=== PATIENT | female | born 2000 | race Hispanic/Latino ===

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

== ENCOUNTER → 2022-01-09 13:31 | Outpatient (CLI) | payer OTHER, MEDICAID, SELFPAY ==
[2021-09-12 14:55] VITALS: BMI 31.3
== END ==
PROVIDERS: Family Provider Pediatrics; PCP Registered Nurse Diabetes Educator; Visit Provider Physician Assistant
DX: N39.0 Urinary tract infection, site not specified (principal)
CPT/HCPCS: 81002; 81025; 87086

== ENCOUNTER 2022-01-24 13:12 | Emergency (ER) | payer OTHER, MEDICAID, SELFPAY ==
[2021-09-12 14:55] VITALS: BMI 31.3
[2022-01-24 13:22] VITALS: BP 179/98; PULSE 122; RESP 22; TEMP 36.9; O2SAT 100
[2022-01-24 13:46] LABS: Ictotest Urine Negative (Negative)
[2022-01-24 13:53] LABS: Bacteria Urine Many (>30); RBC Urine 10-30/HPF (0-5/HPF); Squamous Epithelial Cell Urine 5-10 /HPF (0-5/HPF); WBC Urine 10-30/HPF (0-5/HPF)
--- NOTE | 2022-01-24 14:21 | ED.FEMALEGU ---
HPI - Female Genitourinary General Chief complaint: Urogenital-Female Stated complaint: Itching/burning in genitals Time Seen by Provider: 01/24/22 14:21 Source: patient Mode of arrival: Ambulatory History of Present Illness HPI Narrative: Patient is a 21-year-old female who has history PTSD and depression and frequent UTIs presenting today with vaginal itching and painful urination. He continued to have a charge itching and some dysuria. History of mild back pain. She denies any fever or chills. No nausea or vomiting. She denies any abdominal pain. She reports having unprotected sex with many male partners. She denies prior history of STD. She does have Implanon in her arm. Related Data Previous Rx's Medication Instructions Recorded fluconazole 200 mg tablet 200 mg PO DAILY #1 tab 01/24/22 (Diflucan) Allergies Allergy/AdvReac Type Severity Reaction Status Date / Time sulfamethoxazole Allergy Mild MAKES Verified 01/24/22 16:04 [From ] THROAT BURN trimethoprim [From ] Allergy Mild MAKES Verified 01/24/22 16:04 THROAT BURN amoxicillin Allergy Unknown ITCHING Verified 01/24/22 16:04 Review of Systems Review of Systems Narrative: GENERAL: Denies chills, fatigue, malaise, fever, sweats, travel HEENT: Denies sinus pain, ear pain, sore throat, difficulty swallowing, neck pain RESPIRATORY: Denies dyspnea, cough, wheezing, hemoptysis, sputum. CARDIOVASCULAR: Denies chest pain, palpitations, orthopnea, edema GASTROINTESTINAL: Denies nausea, vomiting, abdominal pain, diarrhea, constipation, melena. : See HPI LICENSED PRACTICAL NURSE CLINIC NURSE: See HPI MUSCULOSKELETAL: Denies weakness, joint pain, or bony pain SKIN: No rash, no erythema, no pruritus NEUROLOGIC: Denies weakness, dizziness, headache, numbness, change in speech, confusion PSYCHIATRIC: No concerning psychosocial issues. 12 point review of systems is negative except for those stated above and HPI Patient History Medical History Chronic ankle pain, bilateral Chronic headache Dehydration Depression GERD (gastroesophageal reflux disease) History of epistaxis Low back pain Lumbosacral pain, chronic Obesity Otitis media Panic anxiety syndrome Posttraumatic stress disorder UTI (urinary tract infection) alcohol intake frequency: holidays/special occasions only Substance Use Type: does not use Exam Initial Vital Signs Initial Vital Signs: Vital Signs Temperature 98.4 F 01/24/22 13:22 Pulse Rate 122 H 01/24/22 13:22 Respiratory Rate 22 01/24/22 13:22 Blood Pressure 179/98 H 01/24/22 13:22 Pulse Oximetry 100 01/24/22 13:22 GENERAL: Alert well-appearing 21-year-old female HEENT: Head atraumatic,EOMI, pupils reactive, face symmetric, [moist] mucous membranes CARDIOVASCULAR: Regular rate and rhythm without murmurs, rubs or gallops. RESPIRATORY: Breath sounds equal bilaterally, no wheezes rales or rhonchi. ABDOMEN: Soft, nontender. Normoactive bowel sounds all 4 quadrants. No guarding or rebound. PELVIC: Copious amounts of yellowish discharge externally and internally. Cervix is slightly friable no foul smell. Bilateral adnexal tenderness : No CVA tenderness EXTREMITIES: Normal range of motion, no clubbing or edema. Neurovascularly intact NEUROLOGICAL: Alert and oriented x4. SKIN: Warm, dry, no laceration, no petechiae, no rashes or lesions. Course Orders Ordered: ED Orders 01/24/22 13:30 Chlamydia Gonorrhea PCR -URINE Stat Ictotest Urine Stat Urine Culture Stat Urine Microscopic Stat 01/24/22 15:45 Chlamydia/Gonoc/Myco Genital Stat Genital Culture Stat Wet Prep Tric BV Chyna Stat 01/24/22 16:15 CBC Auto Diff [Complete Blood Count AUTO DIFF] Stat CMP [Comprehensive Metabolic Panel] Stat Lactate (Lactic Acid) Stat Procalcitonin Stat 01/24/22 16:35 Blood Culture Stat Discontinued Medications Azithromycin (Azithromycin 250 Mg Tablet) 2,000 mg PO NOW ONE Stop: 01/24/22 15:58 Last Admin: 01/24/22 16:21 Dose: 2,000 mg Documented by: TATYANA Ceftriaxone Sodium 1,000 mg/ (Sodium Chloride) 100 mls @ 200 mls/hr IV NOW ONE Stop: 01/24/22 15:58 Last Infusion: 01/24/22 17:10 Dose: 0 mls/hr Documented by: JOSE MIGUEL Admin: 01/24/22 16:21 Dose: 200 mls/hr Documented by: TATYANA Vital Signs Vital signs: Vital Signs - 8 hr 01/24/22 13:22 01/24/22 16:38 01/24/22 17:46 Temperature 98.4 F 98.7 F Pulse Rate 122 H 98 H 95 H Respiratory Rate 22 Blood Pressure 179/98 H 133/85 137/86 Pulse Oximetry 100 100 100 MDM - Female Genitourinary Lab Data Result diagrams: 01/24/22 16:15 01/24/22 16:15 Labs: Lab Results 01/24/22 01/24/22 01/24/22 Range/Units 13:30 13:30 16:15 WBC 11.2 H (4.5-11.0) X10^3/uL RBC 4.96 (4.0-5.2) X10^6/uL Hgb 14.1 (12.0-16.0) g/dL Hct 41.3 (36-46) % MCV 83.3 (80-100) fL MCH 28.5 (26-34) PG MCHC 34.2 (30-36) % RDW 13.8 (11.6-14.8) % Plt Count 257 (150-400) X10^3/uL Neut % (Auto) 64.9 (50-75) % Lymph % (Auto) 27.4 (25-40) % Love % (Auto) 5.8 (3-14) % Eos % (Auto) 1.3 L (2-4) % Baso % (Auto) 0.6 (0-2) % Neut # (Auto) 7300 H (0138-7321) /uL Lymph # (Auto) 3100 (3997-2534) /uL Love # (Auto) 700 (0-900) /uL Eos # (Auto) 100 (0-450) /uL Baso # (Auto) 100 (0-100) /uL Sodium (137-145) mmol/L Potassium (3.4-5.1) mmol/L Chloride (98-107) mmol/L Carbon Dioxide (22-32) mmol/L BUN (7-17) mg/dL Creatinine (0.52-1.04) mg/dL Estimated GFR (>60) mL/min BUN/Creatinine Ratio (6-22) Glucose (70-100) mg/dL Lactate (0.7-2.1) mmol/L Calcium (8.4-10.2) mg/dL Total Bilirubin (0.2-1.3) mg/dL AST (14-36) IU/L ALT (<35) IU/L Alkaline Phosphatase (38-126) U/L Total Protein (6.3-8.2) g/dL Albumin (3.5-5.0) g/dL Globulin (1.7-4.1) g/dL Albumin/Globulin Ratio (1.0-2.8) Procalcitonin (<0.5) ng/mL Ur Bilirubin Confirm Negative (Negative) Urine RBC 10-30/hpf H (0-5/HPF) Urine WBC 10-30/hpf H (0-5/HPF) Ur Squamous Epith Cells 5-10 /hpf H (0-5/HPF) Urine Bacteria Many (>30) H (None) Ur Culture Indicated? Culture not indicate Ur Chlamydia DNA (PCR) Not detected N gonorrhoeae DNA (PCR) Not detected 01/24/22 01/24/22 01/24/22 Range/Units 16:15 16:15 16:15 WBC (4.5-11.0) X10^3/uL RBC (4.0-5.2) X10^6/uL Hgb (12.0-16.0) g/dL Hct (36-46) % MCV (80-100) fL MCH (26-34) PG MCHC (30-36) % RDW (11.6-14.8) % Plt Count (150-400) X10^3/uL Neut % (Auto) (50-75) % Lymph % (Auto) (25-40) % Love % (Auto) (3-14) % Eos % (Auto) (2-4) % Baso % (Auto) (0-2) % Neut # (Auto) (3230-5591) /uL Lymph # (Auto) (7425-8453) /uL Love # (Auto) (0-900) /uL Eos # (Auto) (0-450) /uL Baso # (Auto) (0-100) /uL Sodium 140 (137-145) mmol/L Potassium 3.9 (3.4-5.1) mmol/L Chloride 104 (98-107) mmol/L Carbon Dioxide 26 (22-32) mmol/L BUN 4 L (7-17) mg/dL Creatinine 0.43 L (0.52-1.04) mg/dL Estimated GFR > 60.0 (>60) mL/min BUN/Creatinine Ratio 9.3 (6-22) Glucose 88 (70-100) mg/dL Lactate 0.9 (0.7-2.1) mmol/L Calcium 9.1 (8.4-10.2) mg/dL Total Bilirubin 0.5 (0.2-1.3) mg/dL AST 27 (14-36) IU/L ALT 25 (<35) IU/L Alkaline Phosphatase 77 (38-126) U/L Total Protein 8.7 H (6.3-8.2) g/dL Albumin 4.7 (3.5-5.0) g/dL Globulin 4.0 (1.7-4.1) g/dL Albumin/Globulin Ratio 1.2 (1.0-2.8) Procalcitonin 0.03 (<0.5) ng/mL Ur Bilirubin Confirm (Negative) Urine RBC (0-5/HPF) Urine WBC (0-5/HPF) Ur Squamous Epith Cells (0-5/HPF) Urine Bacteria (None) Ur Culture Indicated? Ur Chlamydia DNA (PCR) N gonorrhoeae DNA (PCR) Point of Care Testing Test Results Negative Urine Dip Bedside Urine Glucose Negative Bedside Urine Bilirubin ++ 2 Bedside Urine Ketone - Negative Urine Specific [place] 1.030 Bedside Urine Occult Blood +++ Bedside Urine pH 6.0 Bedside Urine Protein ++ 100 Bedside Urine Urobilinogen - Negative Bedside Urine Nitrite - Negative Bedside Urine Leukocytes ++ 125 Esterase MDM Narrative Medical decision making narrative: Patient is afebrile but mildly tachycardic. Pelvic exam reveals copious amount of discharge. Blood work does show mild leukocytosis but otherwise normal. His she is not septic. She is empirically treated with Rocephin azithromycin and is but fortunately gonorrhea and chlamydia have returned negative. Her wet mount is positive for yeast. Will give her prescription for fluconazole. She does not appear to have PID. She overall appears well. Education about using condoms safe sex an annual exams. Discharge Plan Departure Patient Disposition: Home Clinical Impression: Candidiasis of vagina Instructions: Vaginal Yeast Infection Activity Restrictions/Additional Instructions: *You have been diagnosed with yeast infection *What to do: Use condoms. You will need to have your annual women's exam *Continue to take medications as directed Fluconazole 200 mg x 1 *Follow up with your primary care provider in 2-3 days or call [phone] *Return to ER if you should have increasing itching discharge abdominal pain or any new, worsening or concerning symptoms Prescriptions: New fluconazole [Diflucan] 200 mg tablet 200 mg PO DAILY Qty: 1 0RF Referrals: John Mccloud ARNP [Primary Care Provider] -
[2022-01-24] MEDS: AZITHROMYCIN 250 MG TABLET 2000 MG PO (16:21)
[2022-01-24] MEDS: cefTRIAXone 1,000 MG in SODIUM CHLORIDE 0.9% 100 ML 200 ML IV (16:21)
[2022-01-24 16:22] LABS: Add Manual Diff / Slide Review NO; Basophils Absolute Auto 100 /uL (0-100); Basophils Percent Auto 0.6 % (0-2); Eosinophils Absolute Auto 100 /uL (0-450); Eosinophils Percent Auto 1.3 % (2-4); Hematocrit 41.3 % (36-46); Hemoglobin 14.1 g/dL (12.0-16.0); Lymphocytes Absolute Auto 3100 /uL (1100-4500); Lymphocytes Percent Auto 27.4 % (25-40); Mean Corpuscular HGB Conc 34.2 % (30-36); Mean Corpuscular Hemoglobin 28.5 PG (26-34); Mean Corpuscular Volume 83.3 fL (80-100); Monocytes Absolute Auto 700 /uL (0-900); Monocytes Percent Auto 5.8 % (3-14); Neutrophils Absolute Auto 7300 /uL (1500-7000); Neutrophils Percent Auto 64.9 % (50-75); Platelet Count 257 X10^3/uL (150-400); Red Blood Cell Count 4.96 X10^6/uL (4.0-5.2); Red Cell Distribution Width 13.8 % (11.6-14.8); White Blood Cell Count 11.2 X10^3/uL (4.5-11.0)
[2022-01-24 16:38] VITALS: BP 133/85; PULSE 98; TEMP 37.1; O2SAT 100
[2022-01-24 16:51] LABS: Alanine Aminotransferase 25 IU/L (<35); Albumin 4.7 g/dL (3.5-5.0); Albumin Globulin Ratio 1.2 (1.0-2.8); Alkaline Phosphatase 77 U/L (38-126); Aspartate Aminotransferase 27 IU/L (14-36); BUN Creatinine Ratio 9.3 (6-22); Bilirubin Total 0.5 mg/dL (0.2-1.3); Blood Urea Nitrogen 4 mg/dL (7-17); Calcium 9.1 mg/dL (8.4-10.2); Carbon Dioxide 26 mmol/L (22-32); Chloride 104 mmol/L (98-107); Estimated Glomerular Filt Rate > 60.0 mL/min (>60); Glucose 88 mg/dL (70-100); HEMOLYSIS < 15 (0-50); Potassium 3.9 mmol/L (3.4-5.1); Sodium 140 mmol/L (137-145); Total Protein 8.7 g/dL (6.3-8.2)
[2022-01-24 16:52] LABS: Lactate (Lactic Acid) 0.9 mmol/L (0.7-2.1)
[2022-01-24 17:08] LABS: Procalcitonin 0.03 ng/mL (<0.5)
[2022-01-24 17:20] LABS: Urine Chlamydia NOT DETECTED; Urine N gonorrhoeae NOT DETECTED
[2022-01-24 17:46] VITALS: BP 137/86; PULSE 95; O2SAT 100
[2022-01-26 14:54] LABS: Chlamydia trachomatis Negative (Negative); Mycoplasma genitalium Negative (Negative); Neisseria gonorrhoeae Negative (Negative)
== END 2022-01-24 17:52 | disposition home or self-care (01) ==
PROVIDERS: Emergency Provider Emergency Medicine; Family Provider Pediatrics; PCP Registered Nurse Diabetes Educator
DX: B37.3 Candidiasis of vulva and vagina (principal); Z88.1 Allergy status to other antibiotic agents; Z88.2 Allergy status to sulfonamides
CPT/HCPCS: 36415; 80053; 81003; 81015; 81025; 83605; 84145; 85025; 87040; 87070; 87077; 87086; 87186; 87205; 87210; 87491; 87563; 87591; 96365; 99284; J0696

== ENCOUNTER → 2022-07-14 10:41 | Outpatient (CLI) | payer OTHER, MEDICAID, SELFPAY ==
[2021-09-12 14:55] VITALS: BMI 31.3
[2022-07-15 05:26] LABS: Valproic Acid (Depakene) Total 39 ug/mL (50-100)
== END ==
PROVIDERS: Family Provider Pediatrics; PCP Registered Nurse Diabetes Educator; Referring Provider Psychiatry & Neurology Psychiatry; Visit Provider Psychiatry & Neurology Psychiatry
DX: F31.81 Bipolar II disorder (principal); Z79.899 Other long term (current) drug therapy
CPT/HCPCS: 36415; 80164

== ENCOUNTER → 2023-01-14 09:09 | Outpatient (CLI) | payer MEDICARE, MEDICAID, SELFPAY ==
[2021-09-12 14:55] VITALS: BMI 31.3
[2023-01-15 05:52] LABS: Valproic Acid (Depakene) Total 66 ug/mL (50-100)
== END ==
PROVIDERS: Family Provider Pediatrics; PCP Registered Nurse Diabetes Educator; Referring Provider Psychiatry & Neurology Psychiatry; Visit Provider Psychiatry & Neurology Psychiatry
DX: F31.81 Bipolar II disorder (principal); Z79.899 Other long term (current) drug therapy
CPT/HCPCS: 36415; 80164

== ENCOUNTER → 2023-02-04 12:47 | Outpatient (CLI) | payer MEDICARE, MEDICAID, SELFPAY ==
[2021-09-12 14:55] VITALS: BMI 31.3
[2023-02-04 15:02] LABS: Urine N gonorrhoeae NOT DETECTED
[2023-02-04 15:04] LABS: Urine Chlamydia NOT DETECTED
== END ==
PROVIDERS: Family Provider Pediatrics; PCP Registered Nurse Diabetes Educator; Visit Provider Registered Nurse Diabetes Educator
DX: N89.8 Other specified noninflammatory disorders of vagina (principal); R10.2 Pelvic and perineal pain
CPT/HCPCS: 87210; 87220; 87491; 87591

== ENCOUNTER → 2023-03-04 13:54 | Outpatient (CLI) | payer MEDICARE, MEDICAID, SELFPAY ==
[2023-02-19 15:27] VITALS: BMI 31.3
[2023-03-04 14:14] LABS: Appearance Urine UA SL CLOUDY; Bilirubin Urine UA NEGATIVE (NEGATIVE); Color Urine UA YELLOW; Glucose Urine UA NEGATIVE (Negative); Ketones Urine UA NEGATIVE (NEGATIVE); Leukocyte Esterase Urine UA 2+ (NEGATIVE); Nitrite Urine UA NEGATIVE (Negative); Occult Blood Urine UA TRACE-INTACT (Negative); Protein Urine UA NEGATIVE (Negative); Specific Gravity Urine UA 1.015 (1.000-1.035); Urobilinogen Urine UA 0.2 E.U./dL (0.2)
[2023-03-04 14:16] LABS: pH Urine UA 6.5 (4.5-8.0)
[2023-03-04 14:26] LABS: Bacteria Urine Moderate (10-30); Culture Indicated Urine Specimen Cultured; RBC Urine 1-5/HPF (0-5/HPF); Squamous Epithelial Cell Urine 10-30 /HPF (0-5/HPF); WBC Urine 10-30/HPF (0-5/HPF)
== END ==
PROVIDERS: Family Provider Pediatrics; PCP Registered Nurse Diabetes Educator; Referring Provider Registered Nurse Diabetes Educator; Visit Provider Registered Nurse Diabetes Educator
DX: R35.0 Frequency of micturition (principal)
CPT/HCPCS: 81001; 87086

== ENCOUNTER → 2023-04-11 11:38 | Outpatient (CLI) | payer MEDICARE, OTHER, MEDICAID, SELFPAY ==
[2023-02-19 15:27] VITALS: BMI 31.3
[2023-04-11 12:31] LABS: Add Manual Diff / Slide Review NO; Basophils Absolute Auto 100 /uL (0-100); Basophils Percent Auto 0.6 % (0-2); Eosinophils Absolute Auto 100 /uL (0-450); Eosinophils Percent Auto 1.3 % (2-4); Hematocrit 39.5 % (36-46); Lymphocytes Absolute Auto 3200 /uL (1100-4500); Lymphocytes Percent Auto 32.9 % (25-40); Mean Corpuscular HGB Conc 35.3 % (30-36); Mean Corpuscular Volume 82.1 fL (80-100); Monocytes Absolute Auto 800 /uL (0-900); Monocytes Percent Auto 7.6 % (3-14); Neutrophils Absolute Auto 5700 /uL (1500-7000); Neutrophils Percent Auto 57.6 % (50-75); Platelet Count 228 X10^3/uL (150-400); Red Blood Cell Count 4.81 X10^6/uL (4.0-5.2); Red Cell Distribution Width 13.1 % (11.6-14.8); White Blood Cell Count 9.9 X10^3/uL (4.5-11.0)
[2023-04-11 12:42] LABS: Alanine Aminotransferase 20 IU/L (<35); Albumin 4.2 g/dL (3.5-5.0); Albumin Globulin Ratio 1.1 (1.0-2.8); Alkaline Phosphatase 64 U/L (38-126); Aspartate Aminotransferase 18 IU/L (14-36); BUN Creatinine Ratio 16.7 (6-22); Bilirubin Total 0.4 mg/dL (0.2-1.3); Blood Urea Nitrogen 8 mg/dL (7-17); Calcium 8.9 mg/dL (8.4-10.2); Carbon Dioxide 29 mmol/L (22-32); Chloride 100 mmol/L (98-107); Estimated Glomerular Filt Rate > 60 mL/min (>60); Globulin 3.8 g/dL (1.7-4.1); Glucose 92 mg/dL (70-100); HEMOLYSIS < 15 (0-50); Lipase 113 U/L (23-300); Sodium 137 mmol/L (137-145)
[2023-04-11 13:27] LABS: TSH w/ Reflex to FT4 3.86 uIU/mL (0.47-4.68)
== END ==
PROVIDERS: Family Provider Registered Nurse Diabetes Educator; PCP Registered Nurse Diabetes Educator; Referring Provider Registered Nurse Diabetes Educator; Visit Provider Registered Nurse Diabetes Educator
DX: R10.9 Unspecified abdominal pain (principal)
CPT/HCPCS: 36415; 80053; 83690; 84443; 85025

== ENCOUNTER → 2023-04-16 14:09 | Outpatient (CLI) | payer MEDICARE, OTHER, MEDICAID, SELFPAY ==
[2023-02-19 15:27] VITALS: BMI 31.3
--- NOTE | 2023-04-16 14:11 | DI.US.S_ITS ---
PROCEDURE: US ABDOMEN LIMITED INDICATIONS: Right upper Quadrant pain TECHNIQUE: Real-time focused scanning was performed of the abdomen, with image documentation. COMPARISON: [facility], CT, CT ABDOMEN PELVIS WO/W CON, 08/22/2021, 15:14. [facility], US, US ABDOMEN COMPLETE, 12/05/2020, 19:09. FINDINGS: Distal study is highly limited by body habitus and by the fact that the patient was not NPO for this examination. No significant liver abnormality is seen. The left liver is not well seen. The gallbladder is not seen. The biliary tree is not seen. The pancreas is not seen. A normal appearing waveform can be seen involving the right renal artery. IMPRESSION: Highly limited study. A cause of right upper quadrant pain is not identified. If clinically appropriate, please consider a follow-up repeat study, following a strict 6 hour fast. Dictated by: Misha Leyva M.D. on 04/16/2023 at 17:44 Approved by: Misha Leyva M.D. on 04/16/2023 at 17:47
[2023-04-17 14:24] LABS: Interpretation Negative (Negative)
== END ==
PROVIDERS: Family Provider Registered Nurse Diabetes Educator; PCP Registered Nurse Diabetes Educator; Referring Provider Registered Nurse Diabetes Educator; Visit Provider Registered Nurse Diabetes Educator
DX: R10.11 Right upper quadrant pain
CPT/HCPCS: 76705; 83013

== ENCOUNTER → 2023-05-03 13:35 | Outpatient (CLI) | payer MEDICARE, OTHER, MEDICAID, SELFPAY ==
[2023-02-19 15:27] VITALS: BMI 31.3
[2023-05-03 16:06] LABS: Urine N gonorrhoeae NOT DETECTED
[2023-05-03 16:15] LABS: Urine Chlamydia NOT DETECTED
== END ==
PROVIDERS: Family Provider Registered Nurse Diabetes Educator; PCP Registered Nurse Diabetes Educator; Visit Provider Obstetrics & Gynecology
DX: N94.10 Unspecified dyspareunia (principal); R10.2 Pelvic and perineal pain; Z11.3 Encounter for screening for infections with a predominantly sexual mode of transmission
CPT/HCPCS: 87491; 87591

== ENCOUNTER 2023-05-24 12:30 | Outpatient (RCR) | payer MEDICARE, MEDICAID, SELFPAY ==
[2023-02-19 15:27] VITALS: BMI 31.3
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
--- NOTE | 2023-05-20 18:20 | PT.OPPOC ---
Physical, Occupational & Speech Therapy At [facility] Current Diagnoses Postural lordosis, lumbar region (05/20/23) Low back pain, unspecified (05/20/23) Dorsalgia, unspecified (05/20/23) Muscle weakness (generalized) (05/20/23) Other symptoms and signs involving the musculoskeletal system (05/20/23) Visit Care Team Role Provider Type TREMAYNE Diaz Attending Provider Advanced Machine Tester Family Provider Primary Care Provider Referring Provider Specialty: Medical Address: [address] [place] [address], [facility] Email: [email or web address] Plan Of Care PT-OP-T Assessment and Plan Start: 05/16/23 19:23 Freq: Status: Active Protocol: Document 05/20/23 10:35 LRN (Rec: 05/20/23 13:58 LRN [id number]) Physical Therapy Assessment Rehab Potential Rehabilitation Potential Fair Evaluation Complexity Number of Personal Factors/Comorbidities 1-2 Number of Body Systems Impaired 4 or More Clinical Presentation at Evaluation Evolving Impairments Impairments Activity Tolerance,Pain, Posture,ROM,Soft Tissue Mobility,Strength,Transfers Goals Three Impairment Decreased standing tolerance due to LBP Impairment Standing in the shower hurts. Pain 6-7/10 Geophysical Laboratory Supervisor Goal (LTG) Pt will be able to stand for showers with pain no greater than 4-5/10. LTG Duration 06/28/23 Two Impairment Decreased functional mobility due to LBP. Impairment Can't reach to floor to get things out of fridge. Pain rated 6-7/10. NANI is 36/100 (18/50) = 36% impaired. Short Term Goal (STG) Pt will be educated HEP of bilateral hip mobility and strength ex's. STG Duration 05/29/23 Prison Goal (LTG) Pt will be able to reach to get things out of the fridge with LBP no greater than 4-5/ 10.. LTG Duration 06/28/23 One Impairment Pt lacks appropriate self care HEP. Short Term Goal (STG) Pt will be educated in log roll transfers, proper body mechanics for ADLs, proper sitting/standing posture. STG Duration 05/24/23 Geophysical Laboratory Supervisor Goal (LTG) Pt will be independent in an effective self care HEP for core/hip strengthening and mobility ex's. LTG Duration 06/28/23 Assessment Summary Assessment Pt is a 22 yo female who presents with LBP that appears to be mechanical, soft tissue , and possibly neurological related. She is quite limited in her trunk mobility and demonstrates a positive L PSLR of 50 deg's and neural tension on the R with PSLR 60 deg's. I was not able to elicit bilateral patellar DTRs or an achilles DTR on the left, but normal achilles DTR on the right. Her sensation appears to be normal, but she reported sometimes numbness in the legs. She has notable postural changes and weakness of her core and LE's. The pt has reported she will be starting PF therapy in a couple of weeks, and due to insurance restrictions, she will not be able to attend therapy for 2 different conditions; therefore the pt is choosing at this time to participate in back rehab for 2 weeks, then discharge in order to start pelvic floor therapy. I feel the pt will need more time than 2 weeks in order to achieve greater functional improvement in her back that would probably benefit her in her PF therapy. If the pt chooses to discharge, we will work towards placement of the pt on a HEP appropriate for her current level of function with the goal of the pt working independently at home to achieve her above goals. I will discuss this with the pt further at her next visit. The pt will benefit from skilled physical therapy for back rehabilitation therapy to work toward achieving her above stated goals. Physical Therapy Plan Frequency and Duration Frequency of Treatment 2x/Week Plan of Care Start Date 05/20/23 Plan of Care End Date 06/28/23 Therapeutic Interventions Therapeutic Interventions Home Exercise Program,Joint Mobilizations,Manual Therapy, Neuromuscular Re-education, Self-Care/Home Management,Soft Tissue Mobilization, Therapeutic Activities, Therapeutic Exercises Modalities Cold Pack/Ice Massage,Electric Stimulation,Hot Packs Next Visit Focus/Plan Next Note Type Treatment Note Next Visit Plan Check special tests & hip mobility. Renato flexion rehab. DORINA douglas. HEP: LB/hip ROM and core/hip strengthening to be completed by 06/28/23 unless the pt chooses to continue low back pain rehab before starting pelvic floor therapy. Plan of Care Dates Plan of Care Start Date 05/20/23 Plan of Care End Date 06/28/23 Electronically Signed by: Alyson Low, PT 05/20/23 2400 If you are in agreement with this Plan of Care, please return a signed and dated copy. I have reviewed this Plan of Care and certify that the skilled therapy services above are required to meet the patient?s needs. Physician Signature Date Printed Name and Credentials Clinical Instructor Signature Printed Name and Credentials
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
--- NOTE | 2023-06-27 10:05 | PT-OP ANOTE ---
Msg left on phone requesting clarification of discharge from therapy as message received 06/10/23. If pt has concerns regarding discharge it was requested that she notify PT by end of day or she will be discharged from therapy. Phone number of clinic given.
--- NOTE | 2023-06-27 10:09 | PT-OP ANOTE ---
Speaking to Meggan, Triage nurse from Dr. Stewart Moody's office, message was relayed of pt's poor tissue health of pt's PF and recommendation of possible treatment while being seen for PT. Message was to be sent to Dr. Stewart Moody.
--- NOTE | 2023-07-16 15:49 | PT.OPDS ---
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 History of Current Condition X-ray 2 yrs ago showed scoliosis. Can only sit 20-30' before having to lie down. Walking hurts and she has to put her hand on her back and arch her back to walk. Prior Treatments and Tests Accupuncture - was not helpful. Treatment Goals Patient/Caregiver Goals Pt goal is to not have back pain, when reaching to get things out of fridge or when standing in the shower. Personal Factors Other Personal Factors That May Effect BMI 41.8 (Obesity= BMI 30 or Therapy/Recovery greater) Significant psychiatric issues (see medical history). PT-OP-C Subjective Start: 05/16/23 19:23 Freq: Status: Active Protocol: Document 05/24/23 12:33 LRN (Rec: 05/24/23 13:35 LRN [id number]) OP-PT Subjective Patient Comments Patient Comments R LB has been terrible and difficult to sleep. PT-OP-H Neuro Start: 05/16/23 19:23 Freq: Status: Active Protocol: Document 05/20/23 10:35 LRN (Rec: 05/20/23 13:58 LRN [id number]) Sensation Evaluation Gross Sensation Gross Sensation WNL Comments Summary Comments Reports legs go numb when crossing legs. Deep Tendon Reflex & Clonus Assessment Deep Tendon Reflex Right Achilles Deep Tendon Reflex 2+ Normal Left Achilles Deep Tendon Reflex 0 Absent Bilateral Patellar Deep Tendon Reflex 0 Absent PT-OP-J Posture/Palpation/Skin Start: 05/16/23 19:23 Freq: Status: Active Protocol: Document 05/20/23 10:35 LRN (Rec: 05/20/23 13:58 LRN [id number]) Posture Evaluation Position Standing Head/C-Spine Posture Forward Head T-Spine Posture Flattened L-Spine Posture Increased Lordosis Shoulder Posture (L) Elevated Pelvis Posture Anteriorly Tilted,(R) PSIS Posterior Weight Distribution Balanced Knee Posture (R) Genu Valgus Comments Posture Comments Dowagers hump Palpation Assessment Location Hips Palpation Location Mayur gluteals Palpation Findings Tenderness Low Back Palpation Location Mayur QL, Lumbar paraspinals, PA of spinous process of L2 throug L5 Palpation Findings Tenderness PT-OP-K Range of Motion Start: 05/16/23 19:23 Freq: Status: Active Protocol: Document 05/20/23 10:35 LRN (Rec: 05/20/23 13:58 LRN [id number]) Lumbar Spine Range of Motion Lumbar Spine Active Degrees Testing Position Standing Flexion 70 Extension 15 Rotation Left 25 Rotation Right 5 ROM Limitations Soft Tissue Tightness,Pain Comments Trunk AROM: Flexion is 70 deg?s with 2 deg ?s hip flexion, Extension is 15 deg?s with 5 deg?s hip extension. Hip Goniometric Range of Motion Hip Left Passive Testing Position Supine Straight Leg Raise 60 Right Passive Testing Position Supine Straight Leg Raise 50 PT-OP-L Special Tests Start: 05/16/23 19:23 Freq: Status: Active Protocol: Document 05/24/23 12:33 LRN (Rec: 05/24/23 13:35 LRN [id number]) Special Tests Lumbar Spine Special Tests Prone Press Up Test Results + Comments Reduction of pain Manual Traction Test Results + Comments reduction of LBP from 6/10 to 4/10 Straight Leg Raise Test Results 50 deg's R, 30 deg's L. PT-OP-M Strength Start: 05/16/23 19:23 Freq: Status: Active Protocol: Document 05/20/23 10:35 LRN (Rec: 05/20/23 13:58 LRN [id number]) Trunk Strength Trunk Manual Muscle Testing Core Stabilization Lacks core stability with movement of LE's. Hip Strength Hip Manual Muscle Testing Right Comments Strength is 3/5 in all muscle groups. Left Comments Strength is 3/5 in all muscle groups. PT-OP-T Assessment and Plan Start: 05/16/23 19:23 Freq: Status: Active Protocol: Document 07/16/23 15:39 LRN (Rec: 07/16/23 15:49 LRN [id number]) Physical Therapy Assessment Goals Three Impairment Decreased standing tolerance due to LBP Impairment Standing in the shower hurts. Pain 6-7/10 Canopy Inspector Goal (LTG) Pt will be able to stand for showers with pain no greater than 4-5/10. LTG Duration 06/28/23 (NOT MET GOAL, pt unavailable for final assessment) Two Impairment Decreased functional mobility due to LBP. Impairment Can't reach to floor to get things out of fridge. Pain rated 6-7/10. NANI is 36/100 (18/50) = 36% impaired. Short Term Goal (STG) Pt will be educated HEP of bilateral hip mobility and strength ex's. STG Duration 05/29/23 (NOT MET GOAL, pt unavailable for final assessment) Retirement Goal (LTG) Pt will be able to reach to get things out of the fridge with LBP no greater than 4-5/ 10. LTG Duration 06/28/23 (NOT MET GOAL, pt unavailable for final assessment) One Impairment Pt lacks appropriate self care HEP. Short Term Goal (STG) Pt will be educated in log roll transfers, proper body mechanics for ADLs, proper sitting/standing posture. STG Duration 05/24/23 (05/24/23: MET GOAL) Retirement Goal (LTG) Pt will be independent in an effective self care HEP for core/hip strengthening and mobility ex's. 05/24/23: I/S HEP: TIFFANIE. LTG Duration 06/28/23 progressed 05/24/23, NOT MET GOAL Assessment Summary Assessment The pt was seen for an initial eval and one treatment visit for low back pain. She was last see on 05/24/23. Message was received that pt called to cancel all visits 06/10/23 due to change in POC by PCP and no longer needs PT; therefore the pt is being discharged from physical therapy per pt request. Physical Therapy Plan Discharge Physical Therapy Discharge Reasons Patient Request Discharge Comments Thank you for your referral.
== END 2023-07-16 15:53 | disposition home or self-care (01) ==
LOC: PHYS 12:30
PROVIDERS: Family Provider Registered Nurse Diabetes Educator; PCP Registered Nurse Diabetes Educator; Referring Provider Registered Nurse Diabetes Educator; Visit Provider Registered Nurse Diabetes Educator
DX: M54.9 Dorsalgia, unspecified (principal); M54.50 Low back pain, unspecified; M62.81 Muscle weakness (generalized); M40.46 Postural lordosis, lumbar region; R29.898 Other symptoms and signs involving the musculoskeletal system
CPT/HCPCS: 97110; 97140; 97162; 97535

== ENCOUNTER → 2023-06-11 13:53 | Outpatient (CLI) | payer MEDICARE, MEDICAID, SELFPAY ==
[2023-02-19 15:27] VITALS: BMI 31.3
--- NOTE | 2023-06-11 13:56 | DI.RAD.S_ITS ---
PROCEDURE: XR LUMBAR SPINE 2-3V INDICATIONS: non healing back pain TECHNIQUE: 3 views of the lumbar spine were acquired. COMPARISON: [facility], , XR LUMBAR SPINE 2-3V, 09/25/2018, 10:53. FINDINGS: Bones: 5 [id number] vertebrae are present. Minimal dextrocurvature of the lumbar spine centered at L2. Mild lower lumbar facet arthropathy. No vertebral body compression fractures. No suspicious bony lesions. Soft tissues: Overlying bowel gas pattern is normal. No suspicious soft tissue calcifications. IMPRESSION: Mild lower lumbar facet arthropathy. Dictated by: Asif William M.D. on 06/11/2023 at 14:30 Approved by: Asif William M.D. on 06/11/2023 at 14:31
--- NOTE | 2023-06-11 13:56 | DI.RAD.S_ITS ---
PROCEDURE: XR THORACIC SPINE 3V INDICATIONS: non healing back pain TECHNIQUE: 3 views of the thoracic spine were acquired. COMPARISON: None. FINDINGS: Bones: No fractures or dislocations. No suspicious bony lesions. Very mild S-shaped thoracolumbar curvature. 12 pairs of ribs are noted, and appear intact where visualized. Soft tissues: No paravertebral stripe thickening. IMPRESSION: No compression fractures identified. Dictated by: Asif William M.D. on 06/11/2023 at 14:29 Approved by: Asif William M.D. on 06/11/2023 at 14:30
== END ==
PROVIDERS: Family Provider Registered Nurse Diabetes Educator; PCP Registered Nurse Diabetes Educator; Referring Provider Registered Nurse Diabetes Educator; Visit Provider Registered Nurse Diabetes Educator
DX: M47.816 Spondylosis without myelopathy or radiculopathy, lumbar region (principal); M54.59 Other low back pain
CPT/HCPCS: 72072; 72100

== ENCOUNTER 2023-08-12 22:55 | Emergency (ER) | payer MEDICARE, MEDICAID, SELFPAY ==
[2023-02-19 15:27] VITALS: BMI 31.3
[2023-08-12 22:55] VITALS: BP 168/103; PULSE 118; RESP 16; TEMP 36.9; O2SAT 99; BMI 41.8
--- NOTE | 2023-08-12 23:10 | ED_ITS ---
HPI - Psych General Chief Complaint: Psychiatric Symptoms Stated Complaint: Forearm lac- SI controlled bleeding Time Seen by Provider: 08/12/23 23:09 History of Present Illness HPI Narrative: Patient 22-year-old female history of developmental delay, autism, bipolar, severe PTSD presenting today with self-induced injuries and cutting both arms. She reports that her boyfriend broke up with her just wanting her nudies.She used a picture frame to cut her arms. She reports all other sharp objects and knives are locked away. She still lives with her mom who also has multiple health issues. She currently denies any suicidal ideations or homicidal ideations. He is having some stinging in her arms but no numbness tingling or weakness. She previously had string of [id number] hospitalizations which was she was diagnosed with bipolar. She is followed closely by outpatient Psychiatry here. Last visit was 08/08/2023 with a very extensive and detailed note. She was on risperidone risperidone was increased and then later held and then later restarted. Related Data Home Medications Medication Instructions Recorded Confirmed melatonin 10 mg tablet 10 mg PO BEDTIME 02/01/22 08/01/23 Previous Rx's Medication Instructions Recorded hydroxyzine HCl 25 mg tablet 25 mg PO TID anxiety #90 tabs 07/03/23 prazosin 2 mg capsule 8 mg PO BEDTIME #120 caps 07/03/23 fluticasone propionate 50 2 spray intranasal DAILY #16 grams 07/04/23 mcg/actuation nasal spray,suspension (Flonase Allergy Relief) omeprazole 20 mg capsule,delayed 20 mg PO BID #60 caps 07/04/23 release ondansetron HCl 4 mg tablet 4 mg PO Q6-8H PRN nausea and 07/17/23 vomiting #30 tabs psyllium husk 3.4 gram/5.4 gram 1 tbsp PO DAILY #660 grams 07/17/23 oral powder (Metamucil) paliperidone palmitate 234 mg/1.5 234 mg (1.5 mL) IM QMONTH #1.5 mL 07/29/23 mL intramuscular syringe risperidone 1 mg tablet 4 mg PO BEDTIME #120 tabs 07/30/23 tretinoin 0.025 % topical cream 1 applic topical BEDTIME #20 grams 08/01/23 (Retin-A) Allergies Allergy/AdvReac Type Severity Reaction Status Date / Time sulfamethoxazole Allergy Mild MAKES Verified 08/01/23 10:05 [From ] THROAT BURN trimethoprim [From ] Allergy Mild MAKES Verified 08/01/23 10:05 THROAT BURN amoxicillin Allergy Unknown ITCHING Verified 08/01/23 10:05 Review of Systems Review of Systems ROS Unobtainable: All systems reviewed & are unremarkable except as noted in HPI and below Patient History Medical History Allergic rhinitis Chronic ankle pain, bilateral Chronic headache Dehydration Depression GERD (gastroesophageal reflux disease) History of epistaxis Low back pain Lumbosacral pain, chronic Obesity Other low back pain Otitis media Panic anxiety syndrome Posttraumatic stress disorder UTI (urinary tract infection) Family History Mother Curvature of spine Narrowing of intervertebral disc space Facet hypertrophy of lumbar region Multilevel degenerative disc disease Fibromyalgia Scoliosis Arthritis Nerve damage of left foot Nerve damage Social History marital status: unmarried,single number of children: 0 household members: family occupational status: unemployed Smoking Status: Never smoker alcohol intake: never caffeine: Yes Smoking Status: Never smoker alcohol intake frequency: holidays/special occasions only Substance Use Type: does not use Exam Initial Vital Signs Initial Vital Signs: Vital Signs Temperature 98.4 F 08/12/23 22:55 Pulse Rate 118 H 08/12/23 22:55 Respiratory Rate 16 08/12/23 22:55 Blood Pressure 168/103 H 08/12/23 22:55 Pulse Oximetry 99 08/12/23 22:55 Oxygen Delivery Method Room Air 08/12/23 22:55 GENERAL: Cooperative well-appearing 22-year-old female CARDIOVASCULAR: peripheral pulses in tact, cap refill <2 sec RESPIRATORY: No respiratory distress, speaks in full sentences without difficulty EXTREMITIES: Normal range of motion, no clubbing or edema. Neurovascularly intact NEUROLOGICAL: Cranial nerves II through XII grossly intact. Normal gait and speech. SKIN: Multiple superficial lacerations on both right and left forearm left forearm are slightly deeper. Course Orders Ordered: ED Orders 08/12/23 23:11 Urinalysis and Microscopic Stat Urine Culture Stat 08/12/23 23:18 Consult to ATTORNEY AT [employer] - Snapper On Stat Vital Signs Vital signs: Vital Signs - 8 hr 10/02/23 22:55 Temperature 98.4 F Pulse Rate 118 H Respiratory Rate 16 Blood Pressure 168/103 H Pulse Oximetry 99 Oxygen Delivery Method Room Air MDM - Psych Lab Data Labs: Lab Results 08/12/23 Range/Units 23:11 Urine Color Yellow Urine Appearance Cloudy Urine pH 7.0 (4.5-8.0) Ur Specific Howard 1.020 (1.000-1.035) Urine Protein 2+ H (Negative) Urine Glucose (UA) Negative (Negative) g/dL Urine Ketones Negative (NEGATIVE) Urine Occult Blood Negative (Negative) Urine Nitrate Negative (Negative) Urine Bilirubin Negative (NEGATIVE) Urine Urobilinogen 1.0 (0.2) E.U./dL Ur Leukocyte Esterase 3+ H (NEGATIVE) Urine RBC None seen (0-5/HPF) Urine WBC 30-100/hpf H (0-5/HPF) Ur Squamous Epith Cells >30 /hpf H (0-5/HPF) Urine Bacteria Many (>30) H (None) Urine Mucus 1+ H (Negative) Ur Culture Indicated? Specimen cultured Point of Care Testing Test Results Negative Urine Dip Bedside Urine Glucose Negative Bedside Urine Bilirubin - Negative Bedside Urine Ketone - Negative Urine Specific Howard 1.020 Bedside Urine Occult Blood - Negative Bedside Urine pH 6.0 Bedside Urine Protein + 30 Bedside Urine Urobilinogen - Negative Bedside Urine Nitrite - Negative Bedside Urine Leukocytes +++ 500 Esterase [facility] Narrative Medical decision making narrative: Patient 22-year-old female multiple psychiatric problems she has baseline suicidal thoughts she repeatedly reports that he was not intending to kill herself today but she does cut occasionally today there was an obvious triggered event. Arms are wrapped and Steri stripped. She is very well known to myself and this facility I know her mother as well. At this time patient would just like to go. She is closely followed with Dr. Raymond. I think this is reasonable. She is reliable she frequently returns to the ED if she feels unstable. Discharge Plan Departure Patient Disposition: Home Clinical Impression: Self-cutting of wrist Instructions: DI for Suicidal Ideation-Adult Activity Restrictions/Additional Instructions: *You have been diagnosed with self cutting *What to do: Keep arms clean and dry with soap and water apply antibiotic ointment. If you feel like self harm please reach out you may return back to emergency department at any time. If you are feeling suicidal or having suicidal thoughts: Call: Suicide Hotline: 263 Visit: [email or web address] Text: 846840 *Continue to take medications as directed *Follow up with your primary care provider in 2-3 days or call [phone] *Return to ER if you should have or any new, worsening or concerning symptoms Prescriptions: No Action melatonin 10 mg tablet 10 mg PO BEDTIME paliperidone palmitate 234 mg/1.5 mL syringe 234 mg IM QMONTH Qty: 1.5 5RF hydroxyzine HCl 25 mg tablet 25 mg PO TID Qty: 90 2RF prazosin 2 mg capsule 8 mg PO BEDTIME Qty: 120 2RF risperidone 1 mg tablet 4 mg PO BEDTIME MDD 4mg Qty: 120 2RF Metamucil 3.4 gram/5.4 gram powder 1 tbsp PO DAILY Qty: 660 2RF Rx Instructions: mix into at least 8 oz of water or juice before administering ondansetron HCl 4 mg tablet 4 mg PO Q6-8H PRN (Reason: nausea and vomiting) Qty: 30 0RF tretinoin [Retin-A] 0.025 % cream 1 applic topical BEDTIME Qty: 20 3RF fluticasone propionate [Flonase Allergy Relief] 50 mcg/actuation spray,suspension 2 spray intranasal DAILY Qty: 16 3RF Rx Instructions: administer into each nostril omeprazole 20 mg capsule,delayed release(DR/EC) 20 mg PO BID Qty: 60 1RF Referrals: John Mccloud ARNP [Primary Care Provider] - Stand Alone Forms: Patient Portal/API
[2023-08-12 23:18] LABS: Bilirubin Urine UA NEGATIVE (NEGATIVE); Color Urine UA YELLOW; Glucose Urine UA NEGATIVE (Negative); Ketones Urine UA NEGATIVE (NEGATIVE); Leukocyte Esterase Urine UA 3+ (NEGATIVE); Nitrite Urine UA NEGATIVE (Negative); Occult Blood Urine UA NEGATIVE (Negative); Protein Urine UA 2+ (Negative)
[2023-08-12 23:19] LABS: Appearance Urine UA Cloudy
[2023-08-12 23:24] LABS: RBC Urine None Seen (0-5/HPF)
[2023-08-12 23:25] LABS: Bacteria Urine Many (>30); Culture Indicated Urine Specimen Cultured; Mucus Urine 1+ (Negative); Squamous Epithelial Cell Urine >30 /HPF (0-5/HPF); WBC Urine 30-100/HPF (0-5/HPF)
[2023-08-13 00:30] VITALS: BP 150/90; PULSE 92; RESP 18; O2SAT 99
== END 2023-08-13 00:32 | disposition home or self-care (01) ==
PROVIDERS: Emergency Provider Emergency Medicine; Family Provider Registered Nurse Diabetes Educator; PCP Registered Nurse Diabetes Educator
DX: T14.91XA Suicide attempt, initial encounter (principal); X78.1XXA Intentional self-harm by knife, initial encounter
CPT/HCPCS: 81001; 81003; 81025; 87086; 99283

== ENCOUNTER → 2023-08-22 10:55 | Outpatient (CLI) | payer MEDICARE, MEDICAID, SELFPAY ==
[2023-02-19 15:27] VITALS: BMI 31.3
[2023-08-22 12:20] LABS: Add Manual Diff / Slide Review NO; Basophils Absolute Auto 0 /uL (0-100); Basophils Percent Auto 0.4 % (0-2); Eosinophils Absolute Auto 100 /uL (0-450); Eosinophils Percent Auto 1.4 % (2-4); Hematocrit 39.7 % (36-46); Lymphocytes Absolute Auto 3200 /uL (1100-4500); Lymphocytes Percent Auto 34.2 % (25-40); Mean Corpuscular HGB Conc 35.2 % (30-36); Mean Corpuscular Hemoglobin 28.6 PG (26-34); Mean Corpuscular Volume 81.4 fL (80-100); Monocytes Absolute Auto 500 /uL (0-900); Monocytes Percent Auto 5.8 % (3-14); Neutrophils Absolute Auto 5400 /uL (1500-7000); Neutrophils Percent Auto 58.2 % (50-75); Platelet Count 257 X10^3/uL (150-400); Red Blood Cell Count 4.87 X10^6/uL (4.0-5.2); Red Cell Distribution Width 13.7 % (11.6-14.8); White Blood Cell Count 9.2 X10^3/uL (4.5-11.0)
[2023-08-22 13:04] LABS: Alanine Aminotransferase 32 IU/L (<35); Albumin 4.4 g/dL (3.5-5.0); Albumin Globulin Ratio 1.2 (1.0-2.8); Alkaline Phosphatase 67 U/L (38-126); Aspartate Aminotransferase 31 IU/L (14-36); Bilirubin Total 0.4 mg/dL (0.2-1.3); Bilirubin Unconjugated 0.3 mg/dL (0.0-1.1); Globulin 3.8 g/dL (1.7-4.1); HEMOLYSIS < 15 (0-50); Lipase 68 U/L (23-300); Total Protein 8.2 g/dL (6.3-8.2)
== END ==
PROVIDERS: Family Provider Registered Nurse Diabetes Educator; PCP Registered Nurse Diabetes Educator; Referring Provider Internal Medicine Gastroenterology; Visit Provider Internal Medicine Gastroenterology
DX: K62.5 Hemorrhage of anus and rectum (principal); R10.84 Generalized abdominal pain; K59.00 Constipation, unspecified
CPT/HCPCS: 36415; 80076; 83690; 85025

== ENCOUNTER 2023-11-12 11:44 | Emergency (ER) | payer MEDICARE, MEDICAID, SELFPAY ==
[2023-02-19 15:27] VITALS: BMI 31.3
[2023-11-12] VITALS (9 sets, daily range): BP systolic 128–165; BP diastolic 79–98; PULSE 81–108; RESP 16–20; TEMP 36.6; O2SAT 98–99; BMI 39.5
[2023-11-12 12:25] LABS: Add Manual Diff / Slide Review NO; Basophils Absolute Auto 100 /uL (0-100); Basophils Percent Auto 0.7 % (0-2); Eosinophils Absolute Auto 200 /uL (0-450); Eosinophils Percent Auto 1.6 % (2-4); Hematocrit 43.3 % (36-46); Hemoglobin 14.7 g/dL (12.0-16.0); Lymphocytes Absolute Auto 3800 /uL (1100-4500); Lymphocytes Percent Auto 29.9 % (25-40); Mean Corpuscular HGB Conc 33.9 % (30-36); Mean Corpuscular Hemoglobin 27.7 PG (26-34); Mean Corpuscular Volume 81.6 fL (80-100); Monocytes Absolute Auto 700 /uL (0-900); Monocytes Percent Auto 5.3 % (3-14); Neutrophils Absolute Auto 7900 /uL (1500-7000); Neutrophils Percent Auto 62.5 % (50-75); Platelet Count 294 X10^3/uL (150-400); Red Cell Distribution Width 13.3 % (11.6-14.8); White Blood Cell Count 12.6 X10^3/uL (4.5-11.0)
[2023-11-12 12:35] LABS: Alanine Aminotransferase 30 IU/L (<35); Albumin 4.7 g/dL (3.5-5.0); Alkaline Phosphatase 75 U/L (38-126); BUN Creatinine Ratio 12.8 (6-22); Bilirubin Total 0.5 mg/dL (0.2-1.3); Blood Urea Nitrogen 6 mg/dL (7-17); Calcium 9.7 mg/dL (8.4-10.2); Carbon Dioxide 26 mmol/L (22-32); Chloride 101 mmol/L (98-107); Estimated Glomerular Filt Rate > 60 mL/min (>60); Globulin 4.6 g/dL (1.7-4.1); Glucose 95 mg/dL (70-100); Lipase 127 U/L (23-300); Potassium 3.6 mmol/L (3.4-5.1); Sodium 139 mmol/L (137-145); Total Protein 9.3 g/dL (6.3-8.2)
[2023-11-12] MEDS: SODIUM CHLORIDE 0.9% 1,000 ML 1000 ML IV (12:35)
[2023-11-12 13:19] LABS: RBC Urine 1-5/HPF (0-5/HPF); WBC Urine >100/HPF (0-5/HPF)
[2023-11-12 13:20] LABS: Bacteria Urine Moderate (10-30); Culture Indicated Urine Specimen Cultured; Squamous Epithelial Cell Urine 1-5 /HPF (0-5/HPF)
--- NOTE | 2023-11-12 13:47 | ED_ITS ---
HPI - Abdominal Pain General Chief Complaint: Abdominal Pain Stated Complaint: Stomach pain Time Seen by Provider: 11/12/23 13:24 Source: patient Mode of arrival: Ambulatory History of Present Illness HPI narrative: Patient 23-year-old female history bipolar, anxiety, depression, irritable bowel, abdominal pain presents today with abdominal pain. She says been ongoing for month. She feels like it is worse today it is more in the right side. She denies any abnormal vaginal discharge or vaginal bleeding. No nausea or vomiting he has not really had any fever. Nothing makes it better or worse. It has not radiating. Related Data Home Medications Medication Instructions Recorded Confirmed melatonin 10 mg tablet 10 mg PO BEDTIME 02/01/22 10/24/23 fluorometholone 0.1 % eye 1 drp EYE-BOTH ONCE 10/01/23 10/24/23 drops,suspension Previous Rx's Medication Instructions Recorded hydroxyzine HCl 25 mg tablet 25 mg PO TID anxiety #90 tabs 07/03/23 fluticasone propionate 50 2 spray intranasal DAILY #16 grams 07/04/23 mcg/actuation nasal spray,suspension (Flonase Allergy Relief) omeprazole 20 mg capsule,delayed 20 mg PO BID #60 caps 07/04/23 release ondansetron HCl 4 mg tablet 4 mg PO Q6-8H PRN nausea and 07/17/23 vomiting #30 tabs psyllium husk 3.4 gram/5.4 gram 1 tbsp PO DAILY #660 grams 07/17/23 oral powder (Metamucil) tretinoin 0.025 % topical cream 1 applic topical BEDTIME #20 grams 08/01/23 (Retin-A) paliperidone palmitate 234 mg/1.5 234 mg (1.5 mL) IM QMONTH #1.5 mL 08/26/23 mL intramuscular syringe risperidone 1 mg tablet 5 mg (5 x 1 mg) PO BEDTIME #150 09/03/23 tabs loratadine 10 mg tablet 10 mg PO DAILY PRN allergy 10/10/23 symptoms #90 tabs tizanidine 2 mg tablet 2 mg PO TID PRN muscle spasticity 10/24/23 #60 tabs prazosin 5 mg capsule 10 mg (2 x 5 mg) PO BEDTIME #60 10/30/23 caps ondansetron 4 mg disintegrating 4 mg PO Q8H PRN nausea #30 tabs 11/06/23 tablet Allergies Allergy/AdvReac Type Severity Reaction Status Date / Time sulfamethoxazole Allergy Mild MAKES Verified 10/24/23 09:37 [From ] THROAT BURN trimethoprim [From ] Allergy Mild MAKES Verified 10/24/23 09:37 THROAT BURN amoxicillin Allergy Unknown ITCHING Verified 10/24/23 09:37 Patient History Medical History Allergic rhinitis Other low back pain Dehydration UTI (urinary tract infection) Low back pain Otitis media Chronic headache Chronic ankle pain, bilateral Lumbosacral pain, chronic Panic anxiety syndrome Obesity History of epistaxis GERD (gastroesophageal reflux disease) Posttraumatic stress disorder Depression Family History Mother Curvature of spine Narrowing of intervertebral disc space Facet hypertrophy of lumbar region Multilevel degenerative disc disease Fibromyalgia Scoliosis Arthritis Nerve damage of left foot Nerve damage Social History marital status: unmarried,single number of children: 0 household members: family occupational status: unemployed Smoking Status: Never smoker alcohol intake: never caffeine: Yes Smoking Status: Never smoker alcohol intake frequency: holidays/special occasions only Substance Use Type: does not use Exam Initial Vital Signs Initial Vital Signs: Vital Signs Temperature 97.9 F 11/12/23 12:01 Pulse Rate 108 H 11/12/23 12:01 Respiratory Rate 20 11/12/23 12:01 Blood Pressure 165/80 H 11/12/23 12:01 Pulse Oximetry 98 11/12/23 12:01 Oxygen Delivery Method Room Air 11/12/23 12:01 GENERAL: Alert very well-appearing 23-year-old female and in no acute distress. HEENT: Head atraumatic,EOMI, pupils reactive, face symmetric, moist mucous membranes CARDIOVASCULAR: Regular rate and rhythm without murmurs, rubs or gallops. RESPIRATORY: Breath sounds equal bilaterally, no wheezes rales or rhonchi. ABDOMEN: Soft, nontender. Normoactive bowel sounds all 4 quadrants. No guarding or rebound. EXTREMITIES: Normal range of motion, no clubbing or edema. Neurovascularly intact NEUROLOGICAL: Alert and oriented x4. SKIN: Warm, dry, no laceration, no petechiae, no rashes or lesions. Course Orders Ordered: ED Orders 11/12/23 12:10 Complete Blood Count AUTO DIFF Stat Comprehensive Metabolic Panel Stat Lipase Stat 11/12/23 12:40 Urine Culture Stat Urine Microscopic Stat 11/12/23 13:47 CT abdomen pelvis w con Stat Discontinued Medications Sodium Chloride (Normal Saline 0.9%) 1,000 mls @ 1,000 mls/hr IV BOLUS ONE Stop: 11/12/23 13:18 Last Infusion: 11/12/23 14:00 Dose: Infused Documented By: Admin: 11/12/23 12:35 Dose: 1,000 mls/hr Documented By: CHANG Ondansetron HCl (Ondansetron 4 Mg Odt) 4 mg PO NOW PRN PRN Reason: Nausea And Vomiting Ondansetron HCl (Ondansetron 4 Mg/2 Ml Inj) 4 mg IV NOW PRN PRN Reason: Nausea And Vomiting Vital Signs Vital signs: Vital Signs - 8 hr 11/12/23 12:01 11/12/23 12:24 11/12/23 12:25 Temperature 97.9 F Pulse Rate 108 H 94 H Respiratory Rate 20 Blood Pressure 165/80 H 138/98 H Pulse Oximetry 98 98 Oxygen Delivery Method Room Air 11/12/23 12:25 11/12/23 12:30 11/12/23 12:30 Temperature Pulse Rate 99 H 98 H Respiratory Rate Blood Pressure 144/88 H Pulse Oximetry 98 99 Oxygen Delivery Method 11/12/23 13:00 11/12/23 13:00 11/12/23 13:30 Temperature Pulse Rate 84 Respiratory Rate 16 Blood Pressure 139/80 137/79 Pulse Oximetry 98 Oxygen Delivery Method Room Air 11/12/23 13:30 11/12/23 14:03 11/12/23 14:03 Temperature Pulse Rate 81 84 Respiratory Rate Blood Pressure 146/87 H Pulse Oximetry 98 99 Oxygen Delivery Method Room Air 11/12/23 14:30 11/12/23 14:42 11/12/23 14:42 Temperature Pulse Rate 84 85 Respiratory Rate Blood Pressure 128/89 Pulse Oximetry 98 99 Oxygen Delivery Method MDM - Abdominal Pain Lab Data 11/12/23 12:10 11/12/23 12:10 Labs: Lab Results 11/12/23 11/12/23 Range/Units 12:10 12:40 WBC 12.6 H (4.5-11.0) X10^3/uL RBC 5.30 H (4.0-5.2) X10^6/uL Hgb 14.7 (12.0-16.0) g/dL Hct 43.3 (36-46) % MCV 81.6 (80-100) fL MCH 27.7 (26-34) PG MCHC 33.9 (30-36) % RDW 13.3 (11.6-14.8) % Plt Count 294 (150-400) X10^3/uL Neut % (Auto) 62.5 (50-75) % Lymph % (Auto) 29.9 (25-40) % [place] % (Auto) 5.3 (3-14) % Eos % (Auto) 1.6 L (2-4) % Baso % (Auto) 0.7 (0-2) % Neut # (Auto) 7900 H (1238-4046) /uL Lymph # (Auto) 3800 (4462-1851) /uL [place] # (Auto) 700 (0-900) /uL Eos # (Auto) 200 (0-450) /uL Baso # (Auto) 100 (0-100) /uL Sodium 139 (137-145) mmol/L Potassium 3.6 (3.4-5.1) mmol/L Chloride 101 (98-107) mmol/L Carbon Dioxide 26 (22-32) mmol/L BUN 6 L (7-17) mg/dL Creatinine 0.47 L (0.52-1.04) mg/dL Estimated GFR > 60 (>60) mL/min BUN/Creatinine Ratio 12.8 (6-22) Glucose 95 (70-100) mg/dL Calcium 9.7 (8.4-10.2) mg/dL Total Bilirubin 0.5 (0.2-1.3) mg/dL AST TNP ALT 30 (<35) IU/L Alkaline Phosphatase 75 (38-126) U/L Total Protein 9.3 H (6.3-8.2) g/dL Albumin 4.7 (3.5-5.0) g/dL Globulin 4.6 H (1.7-4.1) g/dL Albumin/Globulin Ratio 1.0 (1.0-2.8) Lipase 127 (23-300) U/L Urine RBC 1-5/hpf (0-5/HPF) Urine WBC >100/hpf H (0-5/HPF) Ur Squamous Epith Cells 1-5 /hpf D (0-5/HPF) Urine Bacteria Moderate (10-30) H (None) Ur Culture Indicated? Specimen cultured Point of care testing: Point of Care Testing Test Results Negative Urine Dip Bedside Urine Glucose Negative Bedside Urine Bilirubin + 1 Bedside Urine Ketone - Negative Urine Specific [place] 1.015 Bedside Urine Occult Blood +/- Bedside Urine pH 6.5 Bedside Urine Protein + 30 Bedside Urine Urobilinogen +/- 1mg Bedside Urine Nitrite - Negative Bedside Urine Leukocytes +++ [address] scan - abdomen/pelvis: Radiologist's Impression: PROCEDURE: CT ABDOMEN PELVIS W CON INDICATIONS: rlq pain TECHNIQUE: After the administration of intravenous contrast, axial sections acquired from the lung bases to the pubic symphysis. Coronal and sagittal reformats were performed. For radiation dose reduction, the following was used: automated exposure control, adjustment of mA and/or kV according to patient size. COMPARISON: [facility], CT, ABDOMEN/PELVIS WITH CONTRAST, 03/10/2016, 13:59. FINDINGS: Image quality: Diagnostic. Lower Chest: No significant findings. ABDOMEN: Liver: No solid mass. Gallbladder: Absent. Biliary ducts: No biliary dilation. Pancreas: No ductal dilation. Spleen: Size is within normal limits. Adrenal Glands: No adrenal nodules. Kidneys and Ureters: No hydronephrosis. No solid mass. No complex renal cystic lesion which requires follow up. Stomach and Bowel: Normal colonic caliber, without significant wall thickening. Fecal debris within the small bowel. No significant diverticular disease. Peritoneum: No abnormal intraperitoneal fluid. No free air. Ventral Wall: No hernia. Abdominal Nodes: No retroperitoneal or mesenteric adenopathy by size criteria. Vessels: Aorta and inferior vena cava are normal in size. PELVIS: Pelvic Organs: Symmetric ovaries. Bladder: Unremarkable. Pelvic Nodes: No enlarged lymph nodes. Miscellaneous: No inguinal hernias are seen. Bones: No aggressive osseous abnormality. IMPRESSION: No infectious/inflammatory findings to explain the patient's right mid abdomen pain. Normal appendix, no nephrolithiasis and symmetric ovaries. Fecal debris within the small-bowel, usually indicating small intestinal bacterial overgrowth versus slow transit. Dictated by: Heriberto Jones M.D. on 11/12/2023 at 14:40 MDM Narrative Medical decision making narrative: Patient very well-appearing 23-year-old female ongoing abdominal pain presents today with right lower quadrant pain. Records have been reviewed she has not had CTs in 2020. She is afebrile. Blood work reviewed he is some mild leukocytosis 12.6, no KARENA or electrolyte abnormalities. CT reviewed no cause of right lower quadrant pain found. No suspicion for ovarian cyst or ovarian torsion she overall appears very comfortable. At this time possible IBS flare she has not requiring pain medication here in the ED. Discharge Plan Departure Patient Disposition: Home Clinical Impression: Abdominal pain Instructions: DI for Abdominal Pain-Adult Activity Restrictions/Additional Instructions: *You have been diagnosed with abdominal pain *What to do: At this time no cause of your abdominal pain. *Continue to take medications as directed *Follow up with your primary care provider in 2-3 days or call [phone] *Return to ER if you should have increasing pain nausea or vomiting or any new, worsening or concerning symptoms Prescriptions: No Action melatonin 10 mg tablet 10 mg PO BEDTIME risperidone 1 mg tablet 5 mg PO BEDTIME MDD 4mg Qty: 150 2RF hydroxyzine HCl 25 mg tablet 25 mg PO TID Qty: 90 2RF paliperidone palmitate 234 mg/1.5 mL syringe 234 mg IM QMONTH Qty: 1.5 5RF loratadine 10 mg tablet 10 mg PO DAILY PRN (Reason: allergy symptoms) Qty: 90 3RF prazosin 5 mg capsule 10 mg PO BEDTIME Qty: 60 0RF ondansetron 4 mg tablet,disintegrating 4 mg PO Q8H PRN (Reason: nausea) Qty: 30 0RF Metamucil 3.4 gram/5.4 gram powder 1 tbsp PO DAILY Qty: 660 2RF Rx Instructions: mix into at least 8 oz of water or juice before administering ondansetron HCl 4 mg tablet 4 mg PO Q6-8H PRN (Reason: nausea and vomiting) Qty: 30 0RF tretinoin [Retin-A] 0.025 % cream 1 applic topical BEDTIME Qty: 20 3RF fluticasone propionate [Flonase Allergy Relief] 50 mcg/actuation spray,suspension 2 spray intranasal DAILY Qty: 16 3RF Rx Instructions: administer into each nostril omeprazole 20 mg capsule,delayed release(DR/EC) 20 mg PO BID Qty: 60 1RF tizanidine 2 mg tablet 2 mg PO TID PRN (Reason: muscle spasticity) Qty: 60 1RF fluorometholone 0.1 % drops,suspension 1 drp EYE-BOTH ONCE Referrals: John Mccloud ARNP [Primary Care Provider] - Stand Alone Forms: Patient Portal/API
[2023-11-15 15:58] LABS: HEMOLYSIS 21 (0-50)
[2023-11-15 16:00] LABS: Aspartate Aminotransferase 33 IU/L (14-36)
== END 2023-11-12 15:07 | disposition home or self-care (01) ==
PROVIDERS: Emergency Provider Emergency Medicine; Family Provider Registered Nurse Diabetes Educator; PCP Registered Nurse Diabetes Educator
DX: R10.31 Right lower quadrant pain (principal); R79.89 Other specified abnormal findings of blood chemistry
CPT/HCPCS: 74177; 80053; 81003; 81015; 81025; 83690; 85025; 87086; 96360; 99283; 99284; Q9967

== ENCOUNTER → 2023-11-18 11:36 | Outpatient (CLI) | payer MEDICARE, MEDICAID, SELFPAY ==
[2023-11-18 08:36] VITALS: BMI 31.3
== END ==
PROVIDERS: Family Provider Registered Nurse Diabetes Educator; PCP Registered Nurse Diabetes Educator; Visit Provider Registered Nurse Diabetes Educator
DX: R30.0 Dysuria (principal); R10.9 Unspecified abdominal pain
CPT/HCPCS: 87086

== ENCOUNTER → 2023-12-02 13:08 | Outpatient (CLI) | payer MEDICARE, MEDICAID, SELFPAY ==
[2023-11-18 08:36] VITALS: BMI 31.3
[2023-12-02 14:14] LABS: Prolactin 82.8 ng/mL (3.0-18.6)
== END ==
PROVIDERS: Family Provider Registered Nurse Diabetes Educator; PCP Registered Nurse Diabetes Educator; Referring Provider Psychiatry & Neurology Psychiatry; Visit Provider Psychiatry & Neurology Psychiatry
DX: F31.81 Bipolar II disorder (principal); Z79.899 Other long term (current) drug therapy; N64.3 Galactorrhea not associated with childbirth; R10.9 Unspecified abdominal pain; R61 Generalized hyperhidrosis
CPT/HCPCS: 36415; 81001; 84146

== ENCOUNTER → 2024-01-01 12:02 | Outpatient (CLI) | payer MEDICARE, MEDICAID, SELFPAY ==
[2023-11-18 08:36] VITALS: BMI 31.3
== END ==
PROVIDERS: Family Provider Registered Nurse Diabetes Educator; PCP Registered Nurse Diabetes Educator; Visit Provider Registered Nurse Diabetes Educator
DX: N89.8 Other specified noninflammatory disorders of vagina (principal); N39.0 Urinary tract infection, site not specified; R30.0 Dysuria
CPT/HCPCS: 87086; 87210; 87220

== ENCOUNTER → 2024-01-15 10:06 | Outpatient (CLI) | payer MEDICARE, MEDICAID, SELFPAY ==
[2023-11-18 08:36] VITALS: BMI 31.3
[2024-01-15 12:00] LABS: Prolactin 56.8 ng/mL (3.0-18.6)
== END ==
PROVIDERS: Family Provider Registered Nurse Diabetes Educator; PCP Registered Nurse Diabetes Educator; Referring Provider Psychiatry & Neurology Psychiatry; Visit Provider Psychiatry & Neurology Psychiatry
DX: E22.1 Hyperprolactinemia (principal); F31.81 Bipolar II disorder
CPT/HCPCS: 36415; 84146; 99211

== ENCOUNTER → 2024-01-16 10:44 | Outpatient (CLI) | payer MEDICARE, MEDICAID, SELFPAY ==
[2023-11-18 08:36] VITALS: BMI 31.3
== END ==
PROVIDERS: Family Provider Registered Nurse Diabetes Educator; PCP Registered Nurse Diabetes Educator; Visit Provider Physician Assistant
DX: R30.0 Dysuria (principal); N89.8 Other specified noninflammatory disorders of vagina; Z20.2 Contact with and (suspected) exposure to infections with a predominantly sexual mode of transmission
CPT/HCPCS: 87086

== ENCOUNTER → 2024-01-28 08:51 | Outpatient (CLI) | payer MEDICARE, MEDICAID, SELFPAY ==
[2023-11-18 08:36] VITALS: BMI 31.3
[2024-01-28 10:22] LABS: Influenza A - CEPHEID Flu A NEGATIVE (NEGATIVE); Influenza B - CEPHEID Flu B NEGATIVE (NEGATIVE); Respiratory Syncytial Virus Negative (Negative)
[2024-01-28 10:29] LABS: COVID-19 CEPHEID 4-PLEX PCR Negative (Negative)
== END ==
PROVIDERS: Family Provider Registered Nurse Diabetes Educator; PCP Registered Nurse Diabetes Educator; Visit Provider Nurse Practitioner Family
DX: R06.02 Shortness of breath (principal); J02.8 Acute pharyngitis due to other specified organisms; B97.89 Other viral agents as the cause of diseases classified elsewhere
CPT/HCPCS: 0241U; 87070

== ENCOUNTER → 2024-01-29 11:46 | Outpatient (CLI) | payer MEDICARE, MEDICAID, SELFPAY ==
[2023-11-18 08:36] VITALS: BMI 31.3
[2024-01-29 15:51] LABS: Urine N gonorrhoeae NOT DETECTED
[2024-01-29 15:54] LABS: Urine Chlamydia NOT DETECTED
== END ==
PROVIDERS: Family Provider Registered Nurse Diabetes Educator; PCP Registered Nurse Diabetes Educator; Visit Provider Obstetrics & Gynecology
DX: N89.8 Other specified noninflammatory disorders of vagina (principal)
CPT/HCPCS: 87491; 87591

== ENCOUNTER → 2024-02-17 14:44 | Outpatient (CLI) | payer MEDICARE, MEDICAID, SELFPAY ==
[2023-11-18 08:36] VITALS: BMI 31.3
[2024-02-17 18:49] LABS: Appearance Urine UA CLEAR; Bilirubin Urine UA NEGATIVE (NEGATIVE); Color Urine UA YELLOW; Glucose Urine UA NEGATIVE (Negative); Ketones Urine UA NEGATIVE (NEGATIVE); Leukocyte Esterase Urine UA 1+ (NEGATIVE); Nitrite Urine UA NEGATIVE (Negative); Occult Blood Urine UA NEGATIVE (Negative); Protein Urine UA 1+ (Negative)
[2024-02-17 18:50] LABS: pH Urine UA 6.5 (4.5-8.0)
[2024-02-17 19:08] LABS: Bacteria Urine Moderate (10-30); RBC Urine None Seen (0-5/HPF); Squamous Epithelial Cell Urine 5-10 /HPF (0-5/HPF); Urine Volume 10mL (spun); WBC Urine 1-5/HPF (0-5/HPF)
[2024-02-17 19:09] LABS: Culture Indicated Urine Specimen Cultured
== END ==
PROVIDERS: Family Provider Registered Nurse Diabetes Educator; PCP Registered Nurse Diabetes Educator; Visit Provider Physician Assistant Medical
DX: R30.0 Dysuria (principal); N30.00 Acute cystitis without hematuria; N39.0 Urinary tract infection, site not specified
CPT/HCPCS: 81001; 87086

== ENCOUNTER → 2024-02-18 07:55 | Outpatient (CLI) | payer MEDICARE, MEDICAID, SELFPAY ==
[2023-11-18 08:36] VITALS: BMI 31.3
[2024-02-19 13:44] LABS: Candida species Positive (Negative); Gardnerella vaginalis Positive (Negative); Trichomoas vaginalis Negative (Negative)
== END ==
PROVIDERS: Family Provider Registered Nurse Diabetes Educator; PCP Registered Nurse Diabetes Educator; Visit Provider Physician Assistant Medical
DX: N89.8 Other specified noninflammatory disorders of vagina (principal)
CPT/HCPCS: 87480; 87510; 87660

== ENCOUNTER → 2024-03-04 18:17 | Outpatient (CLI) | payer MEDICARE, MEDICAID, SELFPAY ==
[2023-11-18 08:36] VITALS: BMI 31.3
== END ==
PROVIDERS: Family Provider Registered Nurse Diabetes Educator; PCP Registered Nurse Diabetes Educator; Visit Provider Registered Nurse Diabetes Educator
DX: B37.49 Other urogenital candidiasis (principal)
CPT/HCPCS: 87077; 87086; 87186

== ENCOUNTER → 2024-03-06 09:09 | Outpatient (CLI) | payer MEDICARE, MEDICAID, SELFPAY ==
[2023-11-18 08:36] VITALS: BMI 31.3
[2024-03-06 12:17] LABS: Urine Chlamydia NOT DETECTED; Urine N gonorrhoeae NOT DETECTED
== END ==
PROVIDERS: Family Provider Registered Nurse Diabetes Educator; PCP Registered Nurse Diabetes Educator; Visit Provider Obstetrics & Gynecology
DX: N73.0 Acute parametritis and pelvic cellulitis (principal)
CPT/HCPCS: 87491; 87591

== ENCOUNTER → 2024-03-16 10:07 | Outpatient (CLI) | payer MEDICARE, MEDICAID, SELFPAY ==
[2023-11-18 08:36] VITALS: BMI 31.3
== END ==
LOC: LAB 10:09
PROVIDERS: Family Provider Registered Nurse Diabetes Educator; PCP Registered Nurse Diabetes Educator; Referring Provider Internal Medicine Gastroenterology; Visit Provider Internal Medicine Gastroenterology
DX: K58.1 Irritable bowel syndrome with constipation (principal)
CPT/HCPCS: 83993

== ENCOUNTER 2024-03-18 00:07 | Emergency (ER) | payer MEDICARE, MEDICAID, SELFPAY ==
[2023-11-18 08:36] VITALS: BMI 31.3
[2024-03-18 00:16] VITALS: BP 150/72; PULSE 116; RESP 16; TEMP 36.9; O2SAT 100; BMI 41.0
--- NOTE | 2024-03-18 00:20 | ED.ABDPAIN ---
HPI - Abdominal Pain General Chief Complaint: Abdominal Pain Stated Complaint: abd pain Time Seen by Provider: 03/18/24 00:10 History of Present Illness HPI narrative: 23-year-old female with history of bipolar 2 disorder, PTSD, suspected intellectual disability presents by EMS from home for upper abdominal pain with nausea. Patient states that she was recently treated for a bacterial infection and finished all but 2 days of her antibiotics. She states that she gets recurrent infections and is prescribed antibiotics, but they cause stomach discomfort and she stopped taking them. Vital signs stable per EMS Related Data Home Medications Medication Instructions Recorded Confirmed melatonin 10 mg tablet 10 mg PO BEDTIME 02/01/22 02/17/24 Previous Rx's Medication Instructions Recorded tretinoin 0.025 % topical cream 1 applic topical BEDTIME #20 grams 08/01/23 (Retin-A) loratadine 10 mg tablet 10 mg PO DAILY PRN allergy 10/10/23 symptoms #90 tabs hydroxyzine HCl 25 mg tablet 25 mg PO TID anxiety #90 tabs 01/24/24 paliperidone palmitate 234 mg/1.5 234 mg (1.5 mL) IM QMONTH #1.5 mL 02/12/24 mL intramuscular syringe meloxicam 15 mg tablet 15 mg PO DAILY #30 tabs 02/17/24 pregabalin 150 mg capsule (Lyrica) 150 mg PO BID #60 caps 02/17/24 prazosin 5 mg capsule 10 mg (2 x 5 mg) PO BEDTIME #60 02/24/24 caps quetiapine 200 mg tablet 200 mg PO BEDTIME #30 tabs 03/05/24 quetiapine 50 mg tablet 50 mg PO BID #60 tabs 03/05/24 doxycycline hyclate 100 mg tablet 100 mg PO BID #14 tabs 03/06/24 metronidazole 500 mg tablet 500 mg PO BID #14 tabs 03/06/24 ondansetron 4 mg disintegrating 4 mg PO Q8H PRN nausea #30 tabs 03/09/24 tablet ciprofloxacin HCl 500 mg tablet 500 mg PO BID #10 tabs 03/12/24 Allergies Allergy/AdvReac Type Severity Reaction Status Date / Time sulfamethoxazole Allergy Mild MAKES Verified 03/06/24 08:41 [From ] THROAT BURN trimethoprim [From ] Allergy Mild MAKES Verified 03/06/24 08:41 THROAT BURN amoxicillin Allergy Unknown ITCHING Verified 03/06/24 08:41 Review of Systems Review of Systems Narrative: See HPI Patient History Medical History Right foot pain Behavioral disorder in pediatric patient Homicidal ideation Suicidal ideations Stress due to family tension Impaired speech articulation Social anxiety disorder of childhood Fibromyalgia Allergic rhinitis Other low back pain Dehydration UTI (urinary tract infection) Low back pain Otitis media Chronic headache Chronic ankle pain, bilateral Lumbosacral pain, chronic Panic anxiety syndrome Obesity History of epistaxis GERD (gastroesophageal reflux disease) Posttraumatic stress disorder Depression Family History Mother Curvature of spine Narrowing of intervertebral disc space Facet hypertrophy of lumbar region Multilevel degenerative disc disease Fibromyalgia Scoliosis Arthritis Nerve damage of left foot Nerve damage Social History marital status: unmarried,single number of children: 0 household members: family occupational status: unemployed Smoking Status: Never smoker alcohol intake: never caffeine: Yes Smoking Status: Never smoker alcohol intake frequency: holidays/special occasions only Substance Use Type: does not use Exam Initial Vital Signs Initial Vital Signs: Vital Signs Temperature 98.4 F 03/18/24 00:16 Pulse Rate 116 H 03/18/24 00:16 Respiratory Rate 16 03/18/24 00:16 Blood Pressure 150/72 H 03/18/24 00:16 Pulse Oximetry 100 03/18/24 00:16 Oxygen Delivery Method Room Air 03/18/24 00:16 Const: Awake, alert, no acute distress, nontoxic appearing Cardiac: regular rate, regular rhythm RESP: unlabored, clear bilaterally, no wheezing GI: Soft, nontender, nondistended, no rebound, no guarding Skin: Warm, Dry, intact, no rashes Neuro: AO x3, CN II-XII grossly intact, moves all extremities Course Orders Ordered: Discontinued Medications Sodium Chloride (Normal Saline 0.9%) 1,000 mls @ 1,000 mls/hr IV BOLUS ONE Stop: 03/18/24 01:34 Last Infusion: 03/18/24 01:26 Dose: Infused Documented By: Admin: 03/18/24 00:45 Dose: 1,000 mls/hr Documented By: YOKO Ketorolac Tromethamine (Ketorolac 30 Mg/Ml Vial) 15 mg IV NOW ONE Stop: 03/18/24 00:35 Last Admin: 03/18/24 00:43 Dose: 15 mg Documented By: YOKO Ondansetron HCl (Ondansetron 4 Mg Odt) 4 mg PO NOW PRN PRN Reason: Nausea And Vomiting Ondansetron HCl (Ondansetron 4 Mg/2 Ml Inj) 4 mg IV NOW PRN PRN Reason: Nausea And Vomiting Last Admin: 03/18/24 00:42 Dose: 4 mg Documented By: YOKO MDM - Abdominal Pain Lab Data 03/18/24 00:15 03/18/24 00:15 Labs: Lab Results 03/18/24 Range/Units 00:15 WBC 11.9 H (4.5-11.0) X10^3/uL RBC 4.70 (4.0-5.2) X10^6/uL Hgb 13.5 (12.0-16.0) g/dL Hct 39.5 (36-46) % MCV 84.0 (80-100) fL MCH 28.7 (26-34) PG MCHC 34.1 (30-36) % RDW 13.8 (11.6-14.8) % Plt Count 247 (150-400) X10^3/uL Neut % (Auto) 51.5 (50-75) % Lymph % (Auto) 39.3 (25-40) % [place] % (Auto) 7.2 (3-14) % Eos % (Auto) 1.4 L (2-4) % Baso % (Auto) 0.6 (0-2) % Neut # (Auto) 6100 (8158-4825) /uL Lymph # (Auto) 4700 H (1691-5856) /uL [place] # (Auto) 900 (0-900) /uL Eos # (Auto) 200 (0-450) /uL Baso # (Auto) 100 (0-100) /uL Sodium 138 (137-145) mmol/L Potassium 4.4 (3.4-5.1) mmol/L Chloride 107 (98-107) mmol/L Carbon Dioxide 25 (22-32) mmol/L BUN 8 (7-17) mg/dL Creatinine 0.41 L (0.52-1.04) mg/dL Estimated GFR > 60 (>60) mL/min BUN/Creatinine Ratio 19.5 (6-22) Glucose 116 H (70-100) mg/dL Calcium 8.7 (8.4-10.2) mg/dL Total Bilirubin 0.5 (0.2-1.3) mg/dL AST 22 (14-36) IU/L ALT 22 (<35) IU/L Alkaline Phosphatase 66 (38-126) U/L Total Protein 7.7 (6.3-8.2) g/dL Albumin 4.3 (3.5-5.0) g/dL Globulin 3.4 (1.7-4.1) g/dL Albumin/Globulin Ratio 1.3 (1.0-2.8) Lipase 89 (23-300) U/L Point of care testing: Point of Care Testing Test Results Negative Urine Dip Bedside Urine Glucose Negative Bedside Urine Bilirubin - Negative Bedside Urine Ketone - Negative Urine Specific [place] 1.010 Bedside Urine Occult Blood - Negative Bedside Urine pH 6.0 Bedside Urine Protein - Negative Bedside Urine Urobilinogen - Negative Bedside Urine Nitrite - Negative Bedside Urine Leukocytes - Negative Esterase MDM Narrative Medical decision making narrative: Well-appearing patient with upper abdominal pain and nausea. Abdomen soft, no reproducible tenderness to light or deep palpation. Mild tachycardia on arrival, record review shows that patient's baseline heart rate seems to be between 100-120 beats per minute. Laboratory work reviewed, unremarkable. No leukocytosis, normal electrolytes, no evidence of active infection. Record review shows that patient was recently treated for pelvic inflammatory disease, she has absolutely no vaginal discharge or lower abdominal tenderness to suggest recurrent infection. At this time based on normal labs and benign exam no indication for advanced imaging. Patient informed of laboratory work results, she states that she was nausea medications at home that she can take. Discharged home in stable condition. Discharge Plan Departure Patient Disposition: Home Clinical Impression: Abdominal pain Instructions: DI for Abdominal Pain-Adult Activity Restrictions/Additional Instructions: Follow up with your primary care doctor. You may take your home nausea medications as needed. Prescriptions: No Action melatonin 10 mg tablet 10 mg PO BEDTIME paliperidone palmitate 234 mg/1.5 mL syringe 234 mg IM QMONTH Qty: 1.5 3RF loratadine 10 mg tablet 10 mg PO DAILY PRN (Reason: allergy symptoms) Qty: 90 3RF hydroxyzine HCl 25 mg tablet 25 mg PO TID Qty: 90 2RF prazosin 5 mg capsule 10 mg PO BEDTIME Qty: 60 2RF quetiapine 50 mg tablet 50 mg PO BID Qty: 60 3RF Rx Instructions: Take 1 tab in afternoon and 1 tab in the evening with 200mg tab. quetiapine 200 mg tablet 200 mg PO BEDTIME Qty: 30 3RF Rx Instructions: take with one 50mg tab for a total of 250mg at bedtime. ondansetron 4 mg tablet,disintegrating 4 mg PO Q8H PRN (Reason: nausea) Qty: 30 0RF ciprofloxacin HCl 500 mg tablet 500 mg PO BID Qty: 10 0RF tretinoin [Retin-A] 0.025 % cream 1 applic topical BEDTIME Qty: 20 3RF doxycycline hyclate 100 mg tablet 100 mg PO BID Qty: 14 0RF metronidazole 500 mg tablet 500 mg PO BID Qty: 14 0RF meloxicam 15 mg tablet 15 mg PO DAILY Qty: 30 2RF pregabalin [Lyrica] 150 mg capsule 150 mg PO BID Qty: 60 2RF Referrals: John Mccloud ARNP [Primary Care Provider] - Stand Alone Forms: Patient Portal/API
[2024-03-18 00:28] LABS: Add Manual Diff / Slide Review NO; Basophils Absolute Auto 100 /uL (0-100); Basophils Percent Auto 0.6 % (0-2); Eosinophils Absolute Auto 200 /uL (0-450); Eosinophils Percent Auto 1.4 % (2-4); Hematocrit 39.5 % (36-46); Hemoglobin 13.5 g/dL (12.0-16.0); Lymphocytes Absolute Auto 4700 /uL (1100-4500); Lymphocytes Percent Auto 39.3 % (25-40); Mean Corpuscular HGB Conc 34.1 % (30-36); Mean Corpuscular Hemoglobin 28.7 PG (26-34); Monocytes Absolute Auto 900 /uL (0-900); Monocytes Percent Auto 7.2 % (3-14); Neutrophils Absolute Auto 6100 /uL (1500-7000); Neutrophils Percent Auto 51.5 % (50-75); Platelet Count 247 X10^3/uL (150-400); Red Cell Distribution Width 13.8 % (11.6-14.8); White Blood Cell Count 11.9 X10^3/uL (4.5-11.0)
[2024-03-18 00:35] LABS: Alanine Aminotransferase 22 IU/L (<35); Albumin 4.3 g/dL (3.5-5.0); Albumin Globulin Ratio 1.3 (1.0-2.8); Alkaline Phosphatase 66 U/L (38-126); Aspartate Aminotransferase 22 IU/L (14-36); BUN Creatinine Ratio 19.5 (6-22); Bilirubin Total 0.5 mg/dL (0.2-1.3); Blood Urea Nitrogen 8 mg/dL (7-17); Calcium 8.7 mg/dL (8.4-10.2); Carbon Dioxide 25 mmol/L (22-32); Chloride 107 mmol/L (98-107); Estimated Glomerular Filt Rate > 60 mL/min (>60); Globulin 3.4 g/dL (1.7-4.1); Glucose 116 mg/dL (70-100); HEMOLYSIS < 15 (0-50); Lipase 89 U/L (23-300); Potassium 4.4 mmol/L (3.4-5.1); Sodium 138 mmol/L (137-145); Total Protein 7.7 g/dL (6.3-8.2)
[2024-03-18] MEDS: ONDANSETRON 4 MG/2 ML INJ IV (00:42)
[2024-03-18] MEDS: KETOROLAC 30 MG/ML VIAL 15 MG IV (00:43)
[2024-03-18] MEDS: SODIUM CHLORIDE 0.9% 1,000 ML 1000 ML IV (00:45)
--- NOTE | 2024-03-18 01:00 | PC.NURSE ---
Pt requesting a taxi voucher home. This RN advised that the taxi voucher program is no longer available. Pt advised of this information and advised that she may wait in the lobby after discharge until she can get a ride home. Pt verbalizes understanding but states that she is able to walk home.
[2024-03-18 01:27] VITALS: BP 137/70; PULSE 104; RESP 16; O2SAT 99
== END 2024-03-18 01:30 | disposition home or self-care (01) ==
PROVIDERS: Emergency Provider Emergency Medicine; Family Provider Registered Nurse Diabetes Educator; PCP Registered Nurse Diabetes Educator
DX: R10.10 Upper abdominal pain, unspecified (principal); R11.0 Nausea
CPT/HCPCS: 36415; 80053; 81003; 81025; 83690; 85025; 93005; 93010; 96361; 96374; 96375; 99284; J1885; J2405

== ENCOUNTER → 2024-03-23 09:56 | Outpatient (CLI) | payer MEDICARE, MEDICAID, SELFPAY ==
[2023-11-18 08:36] VITALS: BMI 31.3
== END ==
PROVIDERS: Family Provider Registered Nurse Diabetes Educator; PCP Registered Nurse Diabetes Educator; Visit Provider Obstetrics & Gynecology
DX: R35.0 Frequency of micturition (principal)
CPT/HCPCS: 87086

== ENCOUNTER 2024-05-06 16:54 | Emergency (ER) | payer MEDICARE, MEDICAID, SELFPAY ==
[2024-03-23 10:21] VITALS: BMI 31.3
[2024-05-06] VITALS (11 sets, daily range): BP systolic 144–171; BP diastolic 67–102; PULSE 100–154; RESP 7–26; TEMP 37; O2SAT 96–100; BMI 42.4
--- NOTE | 2024-05-06 17:15 | ED_ITS ---
HPI - General Adult <Andrey Nevarez DO - Last Filed: 05/07/24 07:12> General Chief complaint: Upper Respiratory Symptoms Stated complaint: stomach issues, body aches Time Seen by Provider: 05/06/24 17:10 Source: patient Mode of arrival: Ambulatory History of Present Illness HPI narrative: Patient is a 23-year-old female who is here for evaluation of body aches and stomach pain and lower back pain and shortness of breath and feeling like she is COVID and dysuria. Her lower abdominal pain and back pain have actually been going on for some time (several weeks). She started to have body aches and dysuria over the past couple days. She states that other family members have cough and congestion and she was having that as well what she thinks is related to COVID. Has not tried anything for symptoms prior to arrival. No skin rashes. Related Data Home Medications Medication Instructions Recorded Confirmed melatonin 10 mg tablet 10 mg PO BEDTIME 02/01/22 04/21/24 omeprazole 20 mg capsule,delayed 20 mg PO BID 04/21/24 04/21/24 release Previous Rx's Medication Instructions Recorded tretinoin 0.025 % topical cream 1 applic topical BEDTIME #20 grams 08/01/23 (Retin-A) loratadine 10 mg tablet 10 mg PO DAILY PRN allergy 10/10/23 symptoms #90 tabs hydroxyzine HCl 25 mg tablet 25 mg PO TID anxiety #90 tabs 01/24/24 prazosin 5 mg capsule 10 mg (2 x 5 mg) PO BEDTIME #60 02/24/24 caps quetiapine 200 mg tablet 200 mg PO BEDTIME #30 tabs 03/05/24 quetiapine 50 mg tablet 50 mg PO BID #60 tabs 03/05/24 ondansetron 4 mg disintegrating 4 mg PO Q8H PRN nausea #30 tabs 03/09/24 tablet lidocaine 5 % topical ointment 1 applic topical BID PRN pain #30 03/23/24 grams pregabalin 225 mg capsule 225 mg PO BID #60 caps 03/23/24 ketoconazole 2 % shampoo 1 applic topical .2-3XW #240 mL 04/09/24 meloxicam 15 mg tablet 15 mg PO DAILY #30 tabs 05/04/24 paliperidone palmitate 234 mg/1.5 234 mg (1.5 mL) IM QMONTH #1.5 mL 05/04/24 mL intramuscular syringe Allergies Allergy/AdvReac Type Severity Reaction Status Date / Time sulfamethoxazole Allergy Mild MAKES Verified 05/06/24 17:07 [From ] THROAT BURN trimethoprim [From ] Allergy Mild MAKES Verified 05/06/24 17:07 THROAT BURN amoxicillin Allergy Unknown ITCHING Verified 05/06/24 17:07 Review of Systems <Andrey Nevarez DO - Last Filed: 05/07/24 07:12> Review of Systems ROS Unobtainable: All systems reviewed & are unremarkable except as noted in HPI and below Patient History <Andrey Nevarez DO - Last Filed: 05/07/24 07:12> Medical History Low back pain Right foot pain Behavioral disorder in pediatric patient Homicidal ideation Suicidal ideations Stress due to family tension Impaired speech articulation Social anxiety disorder of childhood Fibromyalgia Allergic rhinitis Other low back pain Dehydration UTI (urinary tract infection) Otitis media Chronic headache Chronic ankle pain, bilateral Lumbosacral pain, chronic Panic anxiety syndrome Obesity History of epistaxis GERD (gastroesophageal reflux disease) Posttraumatic stress disorder Depression Family History Mother Curvature of spine Narrowing of intervertebral disc space Facet hypertrophy of lumbar region Multilevel degenerative disc disease Fibromyalgia Scoliosis Arthritis Nerve damage of left foot Nerve damage Social History marital status: unmarried,single number of children: 0 household members: family occupational status: unemployed Smoking Status: Never smoker alcohol intake: never caffeine: Yes Smoking Status: Never smoker alcohol intake frequency: holidays/special occasions only Substance Use Type: does not use Exam <DO Paty Zhang Last Filed: 05/07/24 07:12> Initial Vital Signs Initial Vital Signs: Vital Signs Temperature 98.6 F 05/06/24 16:56 Pulse Rate 126 H 05/06/24 16:56 Respiratory Rate 15 05/06/24 16:56 Blood Pressure 167/92 H 05/06/24 16:56 Pulse Oximetry 97 05/06/24 16:56 Oxygen Delivery Method Room Air 05/06/24 16:56 Const General: cooperative, comfortable and No ill appearing HENMT Head: normal to inspection Resp Effort & Inspection: normal respiratory effort Auscultation: clear to auscultation bilaterally Cardio Rate: tachycardic Rhythm: regular rhythm GI Inspection: normal to inspection and non-distended Palpation: soft, No firm, No guarding and tender Skin General: no rashes or lesions noted Neuro General: patient alert, patient awake and moves all extremities Extrem General: capillary refill normal <eDrrick Robbins MD - Last Filed: 05/07/24 02:12> Initial Vital Signs Initial Vital Signs: Vital Signs Temperature 98.6 F 05/06/24 16:56 Pulse Rate 126 H 05/06/24 16:56 Respiratory Rate 15 05/06/24 16:56 Blood Pressure 167/92 H 05/06/24 16:56 Pulse Oximetry 97 05/06/24 16:56 Oxygen Delivery Method Room Air 05/06/24 16:56 Course <Andrey Nevarez DO - Last Filed: 05/07/24 07:12> Orders Ordered: Discontinued Medications Sodium Chloride (Normal Saline 0.9%) 1,000 mls @ 1,000 mls/hr IV BOLUS ONE Stop: 05/06/24 18:15 Last Infusion: 05/06/24 18:49 Dose: Infused Documented By: Admin: 05/06/24 17:40 Dose: 1,000 mls/hr Documented By: CHANG Sodium Chloride (Normal Saline 0.9%) 1,000 mls @ 1,000 mls/hr IV BOLUS ONE Stop: 05/06/24 19:44 Last Infusion: 05/06/24 20:22 Dose: Infused Documented By: Admin: 05/06/24 18:54 Dose: 1,000 mls/hr Documented By: DB Vital Signs Vital signs: Vital Signs - 8 hr 05/06/24 18:19 05/06/24 18:19 05/06/24 18:30 Pulse Rate 115 H 101 H Respiratory Rate 15 Blood Pressure 155/84 H Pulse Oximetry 98 98 05/06/24 18:30 05/06/24 19:14 05/06/24 19:15 Pulse Rate 103 H 101 H Respiratory Rate 26 H 12 Blood Pressure 150/83 H Pulse Oximetry 100 99 05/06/24 19:15 05/06/24 19:30 05/06/24 19:30 Pulse Rate 101 H Respiratory Rate 23 Blood Pressure 150/81 H 144/80 H Pulse Oximetry 98 05/06/24 20:00 05/06/24 20:00 Pulse Rate 100 H Respiratory Rate 7 L Blood Pressure 150/67 H Pulse Oximetry 99 <Derrick Robbins MD - Last Filed: 05/07/24 02:12> Orders Ordered: Discontinued Medications Sodium Chloride (Normal Saline 0.9%) 1,000 mls @ 1,000 mls/hr IV BOLUS ONE Stop: 05/06/24 18:15 Last Infusion: 05/06/24 18:49 Dose: Infused Documented By: Admin: 05/06/24 17:40 Dose: 1,000 mls/hr Documented By: CHANG Sodium Chloride (Normal Saline 0.9%) 1,000 mls @ 1,000 mls/hr IV BOLUS ONE Stop: 05/06/24 19:44 Last Infusion: 05/06/24 20:22 Dose: Infused Documented By: Admin: 05/06/24 18:54 Dose: 1,000 mls/hr Documented By: DB Vital Signs Vital signs: Vital Signs - 8 hr 05/06/24 18:19 05/06/24 18:19 05/06/24 18:30 Pulse Rate 115 H 101 H Respiratory Rate 15 Blood Pressure 155/84 H Pulse Oximetry 98 98 05/06/24 18:30 05/06/24 19:14 05/06/24 19:15 Pulse Rate 103 H 101 H Respiratory Rate 26 H 12 Blood Pressure 150/83 H Pulse Oximetry 100 99 05/06/24 19:15 05/06/24 19:30 05/06/24 19:30 Pulse Rate 101 H Respiratory Rate 23 Blood Pressure 150/81 H 144/80 H Pulse Oximetry 98 05/06/24 20:00 05/06/24 20:00 Pulse Rate 100 H Respiratory Rate 7 L Blood Pressure 150/67 H Pulse Oximetry 99 Medical Decision Making <Andrey Nevarez DO - Last Filed: 05/07/24 07:12> Lab Data 05/06/24 17:20 05/06/24 17:20 Labs: Lab Results 05/06/24 05/06/24 05/06/24 Range/Units 17:20 17:35 18:20 WBC 10.6 (4.5-11.0) X10^3/uL RBC 4.96 (4.0-5.2) X10^6/uL Hgb 14.3 (12.0-16.0) g/dL Hct 41.0 (36-46) % MCV 82.7 (80-100) fL MCH 28.8 (26-34) PG MCHC 34.9 (30-36) % RDW 13.1 (11.6-14.8) % Plt Count 235 (150-400) X10^3/uL Neut % (Auto) 66.9 (50-75) % Lymph % (Auto) 23.8 L (25-40) % [place] % (Auto) 5.9 (3-14) % Eos % (Auto) 2.1 (2-4) % Baso % (Auto) 1.3 (0-2) % Neut # (Auto) 7100 H (2018-5067) /uL Lymph # (Auto) 2500 (1439-5445) /uL [place] # (Auto) 600 (0-900) /uL Eos # (Auto) 200 (0-450) /uL Baso # (Auto) 100 (0-100) /uL RBC Morphology Normal morphology Sodium 140 (137-145) mmol/L Potassium 4.3 (3.4-5.1) mmol/L Chloride 107 (98-107) mmol/L Carbon Dioxide 23 (22-32) mmol/L BUN 9 (7-17) mg/dL Creatinine 0.46 L (0.52-1.04) mg/dL Estimated GFR > 60 (>60) mL/min BUN/Creatinine Ratio 19.6 (6-22) Glucose 95 (70-100) mg/dL Calcium 9.1 (8.4-10.2) mg/dL Total Bilirubin 0.7 (0.2-1.3) mg/dL AST 31 (14-36) IU/L ALT 34 (<35) IU/L Alkaline Phosphatase 66 (38-126) U/L Total Protein 7.8 (6.3-8.2) g/dL Albumin 4.4 (3.5-5.0) g/dL Globulin 3.4 (1.7-4.1) g/dL Albumin/Globulin Ratio 1.3 (1.0-2.8) Lipase 72 (23-300) U/L Urine Color Yellow Urine Appearance Cloudy Urine pH 6.0 (4.5-8.0) Ur Specific [place] >=1.030 H (1.000-1.035) Urine Protein Trace H (Negative) Urine Glucose (UA) Negative (Negative) g/dL Urine Ketones 1+ H (NEGATIVE) Urine Occult Blood Trace-intact (Negative) Urine Nitrate Negative (Negative) Urine Bilirubin Negative (NEGATIVE) Urine Urobilinogen 0.2 (0.2) E.U./dL Ur Leukocyte Esterase 1+ H (NEGATIVE) Urine RBC 1-5/hpf (0-5/HPF) Urine WBC 10-30/hpf H (0-5/HPF) Ur Squamous Epith Cells >30 /hpf H (0-5/HPF) Urine Bacteria Many (>30) H (None) Urine Mucus 2+ H (Negative) Urine Yeast 1-5/hpf H (None) Ur Culture Indicated? Specimen cultured Vol Urine Centrifuged 10ml (spun) Chlamy pneumoniae PCR Not detected (Not Detect) Adenovirus (PCR) Not detected (Not Detect) B.parapertussis DNA PCR Not detected (Not Detecte) Ur Chlamydia DNA (PCR) Not detected Coronavirus OC43 (PCR) Not detected (Not Detect) Coronavirus HKU1 (PCR) Not detected (Not Detect) Coronavirus 229E (PCR) Not detected (Not Detect) SARS-CoV-2 (PCR) Not detected (Not Detecte) Coronavirus NL63 (PCR) Not detected (Not Detect) Human Metapneumovir PCR Not detected (Not Detect) Influenza Type A (PCR) Not detected (Not Detect) Influenza Type B (PCR) Not detected (Not Detect) M. pneumoniae (PCR) Not detected (Not Detect) Parainfluenza 1 (PCR) Not detected (Not Detect) Parainfluenza 2 (PCR) Not detected (Not Detect) Parainfluenza 3 (PCR) Not detected (Not Detect) Parainfluenza 4 (PCR) Not detected (Not Detect) RSV (PCR) Not detected (Not Detect) Entero/Rhino (PCR) Not detected (Not Detect) N gonorrhoeae DNA (PCR) Not detected Point of Care Testing Test Results Negative Point of care testing: Point of Care Testing Test Results Negative Imaging Data Chest x-ray: Radiologist's Impression: PROCEDURE: XR CHEST 1V INDICATIONS: Shortness of breath TECHNIQUE: One view of the chest was acquired. COMPARISON: [facility], CR, XR CHEST 1V, 12/05/2020, 17:42. [facility], CR, XR CHEST 2V, 11/27/2018, 17:16. FINDINGS: Surgical changes and devices: None. Lungs and pleura: Lungs are clear. Low lung volumes. No pleural effusions or pneumothorax. Mediastinum: Mediastinal contours appear normal. Heart size is normal. Bones and chest wall: No suspicious bony lesions. Overlying soft tissues appear unremarkable. IMPRESSION: No acute cardiopulmonary abnormality is seen. ECG Data Attestation: I personally reviewed and interpreted this ECG as follows: Interpretation: Sinus tachycardia Ventricular rate 119 Normal axis Normal QRS Normal QTC No ST T wave changes MDM Narrative Medical decision making narrative: Patient has multiple medical symptoms. She is tachycardic. She was afebrile. Otherwise has a benign exam. Labs were obtained, sinus rhythm on the EKG, chest x-ray shows no signs of pneumonia. Will wait on labs. Care turned over to Dr. Robbins it change his shift to follow-up and disposition. <Derrick Robbins MD - Last Filed: 05/07/24 02:12> Lab Data Labs: Lab Results 05/06/24 05/06/24 05/06/24 Range/Units 17:20 17:35 18:20 WBC 10.6 (4.5-11.0) X10^3/uL RBC 4.96 (4.0-5.2) X10^6/uL Hgb 14.3 (12.0-16.0) g/dL Hct 41.0 (36-46) % MCV 82.7 (80-100) fL MCH 28.8 (26-34) PG MCHC 34.9 (30-36) % RDW 13.1 (11.6-14.8) % Plt Count 235 (150-400) X10^3/uL Neut % (Auto) 66.9 (50-75) % Lymph % (Auto) 23.8 L (25-40) % [place] % (Auto) 5.9 (3-14) % Eos % (Auto) 2.1 (2-4) % Baso % (Auto) 1.3 (0-2) % Neut # (Auto) 7100 H (7264-2767) /uL Lymph # (Auto) 2500 (3706-5804) /uL [place] # (Auto) 600 (0-900) /uL Eos # (Auto) 200 (0-450) /uL Baso # (Auto) 100 (0-100) /uL RBC Morphology Normal morphology Sodium 140 (137-145) mmol/L Potassium 4.3 (3.4-5.1) mmol/L Chloride 107 (98-107) mmol/L Carbon Dioxide 23 (22-32) mmol/L BUN 9 (7-17) mg/dL Creatinine 0.46 L (0.52-1.04) mg/dL Estimated GFR > 60 (>60) mL/min BUN/Creatinine Ratio 19.6 (6-22) Glucose 95 (70-100) mg/dL Calcium 9.1 (8.4-10.2) mg/dL Total Bilirubin 0.7 (0.2-1.3) mg/dL AST 31 (14-36) IU/L ALT 34 (<35) IU/L Alkaline Phosphatase 66 (38-126) U/L Total Protein 7.8 (6.3-8.2) g/dL Albumin 4.4 (3.5-5.0) g/dL Globulin 3.4 (1.7-4.1) g/dL Albumin/Globulin Ratio 1.3 (1.0-2.8) Lipase 72 (23-300) U/L Urine Color Yellow Urine Appearance Cloudy Urine pH 6.0 (4.5-8.0) Ur Specific [place] >=1.030 H (1.000-1.035) Urine Protein Trace H (Negative) Urine Glucose (UA) Negative (Negative) g/dL Urine Ketones 1+ H (NEGATIVE) Urine Occult Blood Trace-intact (Negative) Urine Nitrate Negative (Negative) Urine Bilirubin Negative (NEGATIVE) Urine Urobilinogen 0.2 (0.2) E.U./dL Ur Leukocyte Esterase 1+ H (NEGATIVE) Urine RBC 1-5/hpf (0-5/HPF) Urine WBC 10-30/hpf H (0-5/HPF) Ur Squamous Epith Cells >30 /hpf H (0-5/HPF) Urine Bacteria Many (>30) H (None) Urine Mucus 2+ H (Negative) Urine Yeast 1-5/hpf H (None) Ur Culture Indicated? Specimen cultured Vol Urine Centrifuged 10ml (spun) Chlamy pneumoniae PCR Not detected (Not Detect) Adenovirus (PCR) Not detected (Not Detect) B.parapertussis DNA PCR Not detected (Not Detecte) Ur Chlamydia DNA (PCR) Not detected Coronavirus OC43 (PCR) Not detected (Not Detect) Coronavirus HKU1 (PCR) Not detected (Not Detect) Coronavirus 229E (PCR) Not detected (Not Detect) SARS-CoV-2 (PCR) Not detected (Not Detecte) Coronavirus NL63 (PCR) Not detected (Not Detect) Human Metapneumovir PCR Not detected (Not Detect) Influenza Type A (PCR) Not detected (Not Detect) Influenza Type B (PCR) Not detected (Not Detect) M. pneumoniae (PCR) Not detected (Not Detect) Parainfluenza 1 (PCR) Not detected (Not Detect) Parainfluenza 2 (PCR) Not detected (Not Detect) Parainfluenza 3 (PCR) Not detected (Not Detect) Parainfluenza 4 (PCR) Not detected (Not Detect) RSV (PCR) Not detected (Not Detect) Entero/Rhino (PCR) Not detected (Not Detect) N gonorrhoeae DNA (PCR) Not detected Point of Care Testing Test Results Negative Point of care testing: Point of Care Testing Test Results Negative Imaging Data CT scan - abdomen/pelvis: My Impression: No obvious free fluid or free air Radiologist's Impression: [place] [address] CT Scan Report Signed Patient: Ruth Zimmer MR#: [id number] : 2000 Acct:[id number] Age/Sex: 23 / F Date of Service: 05/06/24 Loc: ED Accession Number: [id number] Procedure: CT abdomen pelvis w con Ordering Provider: Derrick Robbins MD PROCEDURE: CT ABDOMEN PELVIS W CON INDICATIONS: abd pain, neg labs/HCG, UA, inc HR persisting TECHNIQUE: After the administration of intravenous contrast, axial sections acquired from the lung bases to the pubic symphysis. Coronal and sagittal reformats were performed. For radiation dose reduction, the following was used: automated exposure control, adjustment of mA and/or kV according to patient size. COMPARISON: [facility], CT, CT ABDOMEN PELVIS W CON, 11/12/2023, 13:54. FINDINGS: Image quality: Diagnostic. Lower Chest: No significant findings. ABDOMEN: Liver: No solid mass. Gallbladder: Surgically absent Biliary ducts: No biliary dilation. Pancreas: No ductal dilation. Spleen: Size is within normal limits. Incidental splenules. Adrenal Glands: No adrenal nodules. Kidneys and Ureters: No hydronephrosis. No solid mass. No complex renal cystic lesion which requires follow up. Stomach and Bowel: Normal colonic caliber, without significant wall thickening. Normal caliber appendix. Peritoneum: No abnormal intraperitoneal fluid. No free air. Ventral Wall: No significant ventral hernia. Abdominal Nodes: No retroperitoneal or mesenteric adenopathy by size criteria. Vessels: Aorta and inferior vena cava are normal in size. PELVIS: Pelvic Organs: Unremarkable. Bladder: Bladder is contracted. No bladder wall thickening, accounting for underdistention. Pelvic Nodes: No enlarged lymph nodes. Miscellaneous: No inguinal hernias are seen. Bones: No aggressive osseous abnormality. IMPRESSION: No acute abdominopelvic findings. Approved by: Alma Rosa Alvarez M.D.,Ph.D. on 05/06/2024 at 18:28 MDM Narrative Medical decision making narrative: Patient has multiple medical symptoms. She is tachycardic. She was afebrile. Otherwise has a benign exam. Labs were obtained, sinus rhythm on the EKG, chest x-ray shows no signs of pneumonia. Will wait on labs. Care turned over to Dr. Robbins it change his shift to follow-up and disposition. Dr Robbins, 05/06/2024 @1900, transfer of care accept note. Respiratory panel and urinalysis test results pending. 23-year-old female with history of Bipolar disorder, irritable bowel syndrome, fibromyalgia, has recent myalgias and cough, sinus tachycardia noted on triage and monitor and EKG, afebrile, denies ingestion of psychiatric or other medications/substances, denies thoughts of self-harm. CBC and CMP screening labs unremarkable thus far. UHCG negative. Chest x-ray negative. Also with some abdominal cramping intermittently for the last 1 month. Family members with recent cough cold symptoms. Urinalysis results pending. Respiratory panel results pending. IV fluid bolus given. Assess for improvement of symptoms and follow up test results. Assumed care. 1830, respiratory panel negative. Urinalysis negative. Prior visit for abdominal pain 03/18/2024 noted, negative workup, no imaging at that time, history of prior PID noted from that visit. Ordered urine GC chlamydia PCR. Some mild tenderness abdominal generalized, no guarding or rebound. HR 130s prior now 110-120, improving, will given 2nd liter IV crystalloid. We discussed advanced imaging, she is agreeable, CT Abd/Pelvis requested. CT abdomen and pelvis showed no acute changes, see radiology report Urine GC/chlamydia negative We discussed pelvic examination, declined. We discussed ultrasound pelvic imaging, also declined. She stated to me that she feels better and would like to go home. She is due to see a new primary care provider in the next couple of months. Heart rate further improved after 2 L of fluids. I suggested that she recheck here if she has not feeling better in the next 24-48 hours, and earlier if any any change worsening symptoms or any concerns prior, otherwise with her new primary care provider as planned Discharge Plan Departure Patient Disposition: Home Clinical Impression: Abdominal pain, Tachycardia, Upper respiratory infection Instructions: DI for Cough -- Adult, DI for Abdominal Pain-Adult Prescriptions: No Action melatonin 10 mg tablet 10 mg PO BEDTIME loratadine 10 mg tablet 10 mg PO DAILY PRN (Reason: allergy symptoms) Qty: 90 3RF hydroxyzine HCl 25 mg tablet 25 mg PO TID Qty: 90 2RF prazosin 5 mg capsule 10 mg PO BEDTIME Qty: 60 2RF quetiapine 50 mg tablet 50 mg PO BID Qty: 60 3RF Rx Instructions: Take 1 tab in afternoon and 1 tab in the evening with 200mg tab. quetiapine 200 mg tablet 200 mg PO BEDTIME Qty: 30 3RF Rx Instructions: take with one 50mg tab for a total of 250mg at bedtime. ondansetron 4 mg tablet,disintegrating 4 mg PO Q8H PRN (Reason: nausea) Qty: 30 0RF ketoconazole 2 % shampoo 1 applic TOP .2-3XW Qty: 240 3RF Rx Instructions: Apply to scalp 2-3 times weekly for dandruff paliperidone palmitate 234 mg/1.5 mL syringe 234 mg IM QMONTH Qty: 1.5 5RF meloxicam 15 mg tablet 15 mg PO DAILY Qty: 30 1RF tretinoin [Retin-A] 0.025 % cream 1 applic topical BEDTIME Qty: 20 3RF omeprazole 20 mg capsule,delayed release(DR/EC) 20 mg PO BID lidocaine 5 % ointment 1 applic topical BID PRN (Reason: pain) Qty: 30 0RF pregabalin 225 mg capsule 225 mg PO BID Qty: 60 2RF Referrals: John Mccloud ARNP [Primary Care Provider] - Stand Alone Forms: Patient Portal/API
--- NOTE | 2024-05-06 17:17 | DI.RAD.S_ITS ---
PROCEDURE: XR CHEST 1V INDICATIONS: Shortness of breath TECHNIQUE: One view of the chest was acquired. COMPARISON: [facility], , XR CHEST 1V, 12/05/2020, 17:42. [facility], CR, XR CHEST 2V, 11/27/2018, 17:16. FINDINGS: Surgical changes and devices: None. Lungs and pleura: Lungs are clear. Low lung volumes. No pleural effusions or pneumothorax. Mediastinum: Mediastinal contours appear normal. Heart size is normal. Bones and chest wall: No suspicious bony lesions. Overlying soft tissues appear unremarkable. IMPRESSION: No acute cardiopulmonary abnormality is seen. Dictated by: Ever Pennington M.D. on 05/06/2024 at 17:49 Approved by: Ever Pennington M.D. on 05/06/2024 at 17:49
--- NOTE | 2024-05-06 17:39 | EKG_ITS ---
[address] [address] Test Date: 2024-05-06 Pat Name: Ruth Zimmer Department: Room: Gender: Female Board Winder: JOSE : 2000 Requested By: Order Number: [id number] Reading MD: Alvin Murray Measurements Intervals [place] Rate: 119 P: 24 NM: 156 QRS: 23 QRSD: 78 T: 40 QT: 326 QTc: 458 Interpretive Statements Sinus tachycardia Electronically Signed On 05-06-2024 19:43:27 PDT by Alvin Murray
[2024-05-06] MEDS: SODIUM CHLORIDE 0.9% 1,000 ML 1000 ML IV ×2 (17:40→18:54)
[2024-05-06 17:51] LABS: Lipase 72 U/L (23-300)
[2024-05-06 17:52] LABS: Alanine Aminotransferase 34 IU/L (<35); Albumin 4.4 g/dL (3.5-5.0); Albumin Globulin Ratio 1.3 (1.0-2.8); Alkaline Phosphatase 66 U/L (38-126); Aspartate Aminotransferase 31 IU/L (14-36); BUN Creatinine Ratio 19.6 (6-22); Bilirubin Total 0.7 mg/dL (0.2-1.3); Blood Urea Nitrogen 9 mg/dL (7-17); Calcium 9.1 mg/dL (8.4-10.2); Carbon Dioxide 23 mmol/L (22-32); Chloride 107 mmol/L (98-107); Estimated Glomerular Filt Rate > 60 mL/min (>60); Globulin 3.4 g/dL (1.7-4.1); Glucose 95 mg/dL (70-100); HEMOLYSIS 33 (0-50); Potassium 4.3 mmol/L (3.4-5.1); Sodium 140 mmol/L (137-145); Total Protein 7.8 g/dL (6.3-8.2)
[2024-05-06 17:57] LABS: Add Manual Diff / Slide Review SLIDE REVIEW; Basophils Absolute Auto 100 /uL (0-100); Basophils Percent Auto 1.3 % (0-2); Eosinophils Absolute Auto 200 /uL (0-450); Eosinophils Percent Auto 2.1 % (2-4); Hemoglobin 14.3 g/dL (12.0-16.0); Lymphocytes Absolute Auto 2500 /uL (1100-4500); Lymphocytes Percent Auto 23.8 % (25-40); Mean Corpuscular HGB Conc 34.9 % (30-36); Mean Corpuscular Hemoglobin 28.8 PG (26-34); Mean Corpuscular Volume 82.7 fL (80-100); Monocytes Absolute Auto 600 /uL (0-900); Monocytes Percent Auto 5.9 % (3-14); Neutrophils Absolute Auto 7100 /uL (1500-7000); Neutrophils Percent Auto 66.9 % (50-75); Platelet Count 235 X10^3/uL (150-400); Red Blood Cell Count 4.96 X10^6/uL (4.0-5.2); Red Cell Distribution Width 13.1 % (11.6-14.8); White Blood Cell Count 10.6 X10^3/uL (4.5-11.0)
[2024-05-06 18:26] LABS: Adenovirus Not Detected (Not Detect); B. parapertussis Not Detected (Not Detecte); Bordetella pertussis Not Detected (Not Detect); Chlamydophila pneumoniae Not Detected (Not Detect); Coronavirus 229E Not Detected (Not Detect); Coronavirus HKU1 Not Detected (Not Detect); Coronavirus NL 63 Not Detected (Not Detect); Coronavirus OC43 Not Detected (Not Detect); Human Metapneumovirus Not Detected (Not Detect); Human Rhinovirus/Enterovirus Not Detected (Not Detect); Influenza A Not Detected (Not Detect); Influenza B Not Detected (Not Detect); Mycoplasma pneumoniae Not Detected (Not Detect); Parainfluenza Virus 1 Not Detected (Not Detect); Parainfluenza Virus 2 Not Detected (Not Detect); Parainfluenza Virus 3 Not Detected (Not Detect); Parainfluenza Virus 4 Not Detected (Not Detect); Respiratory Syncytial Virus Not Detected (Not Detect); SARS- CoV-2 Not Detected (Not Detecte)
[2024-05-06 18:28] LABS: Appearance Urine UA CLOUDY; Bilirubin Urine UA NEGATIVE (NEGATIVE); Color Urine UA YELLOW; Glucose Urine UA NEGATIVE (Negative); Ketones Urine UA 1+ (NEGATIVE); Leukocyte Esterase Urine UA 1+ (NEGATIVE); Nitrite Urine UA NEGATIVE (Negative); Occult Blood Urine UA TRACE-INTACT (Negative); Protein Urine UA TRACE (Negative); Specific Gravity Urine UA >=1.030 (1.000-1.035); Urobilinogen Urine UA 0.2 E.U./dL (0.2)
[2024-05-06 18:35] LABS: Bacteria Urine Many (>30); Culture Indicated Urine Specimen Cultured; Mucus Urine 2+ (Negative); RBC Urine 1-5/HPF (0-5/HPF); Squamous Epithelial Cell Urine >30 /HPF (0-5/HPF); Urine Volume 10mL (spun); WBC Urine 10-30/HPF (0-5/HPF)
[2024-05-06 18:37] LABS: RBC Morphology Normal Morphology
--- NOTE | 2024-05-06 18:44 | DI.CT.S_ITS ---
PROCEDURE: CT ABDOMEN PELVIS W CON INDICATIONS: abd pain, neg labs/HCG, UA, inc HR persisting TECHNIQUE: After the administration of intravenous contrast, axial sections acquired from the lung bases to the pubic symphysis. Coronal and sagittal reformats were performed. For radiation dose reduction, the following was used: automated exposure control, adjustment of mA and/or kV according to patient size. COMPARISON: [facility], CT, CT ABDOMEN PELVIS W CON, 11/12/2023, 13:54. FINDINGS: Image quality: Diagnostic. Lower Chest: No significant findings. ABDOMEN: Liver: No solid mass. Gallbladder: Surgically absent Biliary ducts: No biliary dilation. Pancreas: No ductal dilation. Spleen: Size is within normal limits. Incidental splenules. Adrenal Glands: No adrenal nodules. Kidneys and Ureters: No hydronephrosis. No solid mass. No complex renal cystic lesion which requires follow up. Stomach and Bowel: Normal colonic caliber, without significant wall thickening. Normal caliber appendix. Peritoneum: No abnormal intraperitoneal fluid. No free air. Ventral Wall: No significant ventral hernia. Abdominal Nodes: No retroperitoneal or mesenteric adenopathy by size criteria. Vessels: Aorta and inferior vena cava are normal in size. PELVIS: Pelvic Organs: Unremarkable. Bladder: Bladder is contracted. No bladder wall thickening, accounting for underdistention. Pelvic Nodes: No enlarged lymph nodes. Miscellaneous: No inguinal hernias are seen. Bones: No aggressive osseous abnormality. IMPRESSION: No acute abdominopelvic findings. Approved by: Alma Rosa Alvarez M.D.,Ph.D. on 05/06/2024 at 18:28
[2024-05-06 20:15] LABS: Urine N gonorrhoeae NOT DETECTED
[2024-05-06 20:17] LABS: Urine Chlamydia NOT DETECTED
== END 2024-05-06 20:26 | disposition home or self-care (01) ==
PROVIDERS: Emergency Medicine; Emergency Provider Emergency Medicine; Family Provider Registered Nurse Diabetes Educator; PCP Registered Nurse Diabetes Educator
DX: J06.9 Acute upper respiratory infection, unspecified (principal); M54.50 Low back pain, unspecified; R10.9 Unspecified abdominal pain; R00.0 Tachycardia, unspecified; Z11.52 Encounter for screening for COVID-19
CPT/HCPCS: 71045; 74177; 80053; 81001; 81025; 83690; 85025; 87077; 87086; 87186; 87491; 87591; 87633; 93005; 96360; 96361; 99284; Q9967

== ENCOUNTER → 2024-05-07 13:06 | Outpatient (CLI) | payer MEDICARE, MEDICAID, SELFPAY ==
[2024-03-23 10:21] VITALS: BMI 31.3
[2024-05-07 15:15] LABS: Prolactin 74.3 ng/mL (3.0-18.6)
== END ==
PROVIDERS: Family Provider Registered Nurse Diabetes Educator; PCP Registered Nurse Diabetes Educator; Referring Provider Psychiatry & Neurology Psychiatry; Visit Provider Psychiatry & Neurology Psychiatry
DX: N64.3 Galactorrhea not associated with childbirth (principal); E22.1 Hyperprolactinemia; Z79.899 Other long term (current) drug therapy
CPT/HCPCS: 36415; 84146

== ENCOUNTER → 2024-05-22 15:13 | Outpatient (CLI) | payer MEDICARE, MEDICAID, SELFPAY ==
[2024-03-23 10:21] VITALS: BMI 31.3
[2024-05-22 18:32] LABS: Urine N gonorrhoeae NOT DETECTED
[2024-05-22 18:42] LABS: Urine Chlamydia NOT DETECTED
== END ==
PROVIDERS: Family Provider Registered Nurse Diabetes Educator; PCP Registered Nurse Diabetes Educator; Visit Provider Obstetrics & Gynecology
DX: Z11.3 Encounter for screening for infections with a predominantly sexual mode of transmission (principal); R30.0 Dysuria
CPT/HCPCS: 87086; 87491; 87591

== ENCOUNTER → 2024-06-01 11:03 | Outpatient (CLI) | payer MEDICARE, MEDICAID, SELFPAY ==
[2024-03-23 10:21] VITALS: BMI 31.3
[2024-06-01 12:44] LABS: Prolactin 96.7 ng/mL (3.0-18.6)
--- NOTE | 2024-06-01 13:00 | DI.MRI.S_ITS ---
PROCEDURE: MR BRAIN (PITUITARY) WWO CON INDICATIONS: HYPERPROLACTINEMIA TECHNIQUE: Noncontrast sagittal and axial FLAIR, axial gradient echo, axial diffusion and ADC through the brain. Thin-slice sagittal and coronal T1 spin echo, coronal T2 fast spin echo through the pituitary. After the administration contrast, optional dynamic coronal T1 spin echo, thin-slice coronal and sagittal T1 spin echo images through the pituitary fossa; axial and coronal and sagittal T1 spin echo with fat saturation through the brain. COMPARISON: MR, MR HEAD/BRAIN WO/W CON, 04/09/2019, 14:07. MR, MR HEAD/BRAIN WO CON, 06/13/2018, 7:30. FINDINGS: Image quality: This examination is limited by involuntary motion artifact. Pituitary Gland: The pituitary gland demonstrates normal signal and bulk. On the postcontrast imaging, no masses or abnormally enhancing areas are seen. The pituitary stalk and infundibulum have an unremarkable appearance. A normal appearing pituitary bright spot is seen posteriorly on the precontrast sagittal T1-weighted images. The optic chiasm and the ventral forebrain have an unremarkable appearance. CSF Spaces: Ventricles are normal in size and shape. Basal cisterns are patent. No extra-axial fluid collections. Brain: No intracranial bleeds or mass effects. No abnormal intracranial enhancement. Mercado-white matter interface is intact. Diffusion weighted images demonstrate no acute ischemic insults. Brainstem is normal. Normal intravascular flow voids are present. Skull and face: Calvarial marrow is normal in signal. Orbits appear normal. Sinuses: Sinuses and mastoids are clear. IMPRESSION: No significant abnormality is seen to explain the patient's presenting symptoms. Specifically, no masses or abnormal enhancement can be seen within the pituitary. Dictated by: Misha Leyva M.D. on 06/01/2024 at 12:07 Approved by: Misha Leyva M.D. on 06/01/2024 at 12:09
== END ==
PROVIDERS: Family Provider Registered Nurse Diabetes Educator; PCP Registered Nurse Diabetes Educator; Referring Provider Internal Medicine Endocrinology, Diabetes & Metabolism; Visit Provider Internal Medicine Endocrinology, Diabetes & Metabolism
DX: E22.1 Hyperprolactinemia (principal); F31.81 Bipolar II disorder; F29 Unspecified psychosis not due to a substance or known physiological condition; F43.10 Post-traumatic stress disorder, unspecified; F79 Unspecified intellectual disabilities; Z79.899 Other long term (current) drug therapy
CPT/HCPCS: 36415; 70553; 84146; 99214; A9579

== ENCOUNTER → 2024-06-04 11:52 | Outpatient (CLI) | payer MEDICARE, MEDICAID, SELFPAY ==
[2024-03-23 10:21] VITALS: BMI 31.3
--- NOTE | 2024-06-04 11:53 | DI.RAD.S_ITS ---
PROCEDURE: XR LUMBAR SPINE 2-3V INDICATIONS: pain TECHNIQUE: 3 views of the lumbar spine were acquired. COMPARISON: [facility], CR, XR LUMBAR SPINE 2-3V, 06/11/2023, 13:52. FINDINGS: Bones: 5 [id number] vertebrae are present. There is normal bony alignment. No vertebral body compression fractures. No suspicious bony lesions. Schmorl nodes along the inferior endplates of L1 and L2. Soft tissues: Overlying bowel gas pattern is normal. No suspicious soft tissue calcifications. Phleboliths within the pelvis. IMPRESSION: 1. No acute fracture or subluxation. 2. Incidental Schmorl node along the inferior endplates of L1 and L2. Dictated by: Eliezer Glass M.D. on 06/05/2024 at 11:27 on 06/05/2024 Approved by: Eliezer Glass M.D. on 06/05/2024 at 11:27
[2024-06-04 12:51] LABS: Add Manual Diff / Slide Review NO; Basophils Absolute Auto 0 /uL (0-100); Basophils Percent Auto 0.4 % (0-2); Eosinophils Absolute Auto 100 /uL (0-450); Eosinophils Percent Auto 1.4 % (2-4); Hematocrit 40.4 % (36-46); Hemoglobin 13.9 g/dL (12.0-16.0); Lymphocytes Absolute Auto 2400 /uL (1100-4500); Lymphocytes Percent Auto 21.9 % (25-40); Mean Corpuscular HGB Conc 34.5 % (30-36); Mean Corpuscular Hemoglobin 29.1 PG (26-34); Mean Corpuscular Volume 84.4 fL (80-100); Monocytes Absolute Auto 700 /uL (0-900); Monocytes Percent Auto 6.3 % (3-14); Neutrophils Absolute Auto 7600 /uL (1500-7000); Platelet Count 269 X10^3/uL (150-400); Red Blood Cell Count 4.79 X10^6/uL (4.0-5.2); Red Cell Distribution Width 13.3 % (11.6-14.8); White Blood Cell Count 10.8 X10^3/uL (4.5-11.0)
[2024-06-04 13:12] LABS: Alanine Aminotransferase 27 IU/L (<35); Albumin 4.4 g/dL (3.5-5.0); Albumin Globulin Ratio 1.4 (1.0-2.8); Alkaline Phosphatase 68 U/L (38-126); Aspartate Aminotransferase 28 IU/L (14-36); BUN Creatinine Ratio 10.5 (6-22); Bilirubin Total 0.6 mg/dL (0.2-1.3); Blood Urea Nitrogen 6 mg/dL (7-17); Calcium 9.2 mg/dL (8.4-10.2); Carbon Dioxide 27 mmol/L (22-32); Chloride 105 mmol/L (98-107); Cholesterol 142 mg/dL (140-199); Estimated Glomerular Filt Rate > 60 mL/min (>60); Globulin 3.1 g/dL (1.7-4.1); Glucose 95 mg/dL (70-100); HEMOLYSIS < 15 (0-50); Sodium 141 mmol/L (137-145); Total Protein 7.5 g/dL (6.3-8.2); Triglycerides 72 mg/dL (35-150)
[2024-06-04 13:16] LABS: Lithium < 0.2 mmol/L (0.6-1.2)
[2024-06-04 13:17] LABS: HDL Cholesterol 42 mg/dL (40-60); LDL Cholesterol Calculated 86 mg/dL (<100); Potassium 4.2 mmol/L (3.4-5.1)
[2024-06-04 14:17] LABS: Hemoglobin A1C% w Est Avg Glu 4.9 % (4.0-6.0)
== END ==
PROVIDERS: Psychiatry & Neurology Psychiatry; Family Provider Registered Nurse Diabetes Educator; PCP Family Medicine; Referring Provider Family Medicine; Visit Provider Family Medicine
DX: M54.50 Low back pain, unspecified (principal); Z79.899 Other long term (current) drug therapy; F31.81 Bipolar II disorder; M79.671 Pain in right foot; E22.1 Hyperprolactinemia; E66.01 Morbid (severe) obesity due to excess calories; M54.59 Other low back pain
CPT/HCPCS: 36415; 72100; 80053; 80061; 80178; 83036; 85025

== ENCOUNTER → 2024-06-12 12:45 | Outpatient (CLI) | payer MEDICARE, MEDICAID, SELFPAY ==
[2024-03-23 10:21] VITALS: BMI 31.3
--- NOTE | 2024-06-12 12:46 | DI.US.S_ITS ---
LIMITED ULTRASOUND OF RIGHT BREAST: 06/12/2024 CLINICAL: Diffuse right breast pain and focal redness. Comparison is made to exams dated: 05/01/2021 ultrasound and 05/01/2021 ultrasound - [facility]. Color flow and real-time ultrasound of the right breast four quadrants and retroareolar regions were performed. Mercado scale images of the real-time examination were reviewed. There is a 1.1 cm x 1 cm x 0.3 cm oval cyst in the right breast at 8 o'clock anterior depth 2 cm from the nipple. This oval cyst is hypoechoic. This correlates to the reported pain and skin erythema. There is a tract to the skin. No other mass or cyst seen in the region of pain. IMPRESSION: BENIGN There is no sonographic evidence of malignancy. Right breast 8:00 sebaceous cyst measuring 1.1 cm is benign. Exam findings were conveyed to the patient. Patient is advised to monitor for significant change. Clinical follow-up as needed. No other mass or cyst seen. This exam was interpreted at Station ID: [id number]. Electronically Signed By: Rick Hatfield M.D. [facility]/:06/12/2024 14:44:57 letter sent: Normal Exam Ultrasound BI-RADS: 2 Benign
--- NOTE | 2024-06-12 14:18 | DI.US.S_ITS ---
LIMITED ULTRASOUND OF LEFT BREAST: 06/12/2024 CLINICAL: Diffuse left breast pain. Comparison is made to exams dated: 06/12/2024 ultrasound, 05/01/2021 ultrasound, and 05/01/2021 ultrasound - [facility]. Real-time ultrasound of the left breast four quadrants and retroareolar regions was performed. Mercado scale images of the real-time examination were reviewed. No significant abnormalities were seen sonographically in the left breast. IMPRESSION: NEGATIVE There is no sonographic evidence of malignancy. No mass or cyst in the region of pain. Exam findings were conveyed to the patient. Patient is advised to monitor for significant change. Clinical follow-up as needed. This exam was interpreted at Station ID: [id number]. Electronically Signed By: Rick Hatfield M.D. [facility]/:06/12/2024 14:46:30 letter sent: Normal Exam Ultrasound BI-RADS: 1 Negative
== END ==
PROVIDERS: Family Provider Registered Nurse Diabetes Educator; PCP Family Medicine; Referring Provider Family Medicine; Visit Provider Family Medicine
DX: N60.81 Other benign mammary dysplasias of right breast (principal); N64.4 Mastodynia; N61.0 Mastitis without abscess
CPT/HCPCS: 76642

== ENCOUNTER → 2024-06-30 12:22 | Outpatient (CLI) | payer MEDICARE, MEDICAID, SELFPAY ==
[2024-03-23 10:21] VITALS: BMI 31.3
== END ==
LOC: LAB 12:23
PROVIDERS: Family Provider Registered Nurse Diabetes Educator; PCP Family Medicine; Referring Provider Family Medicine; Visit Provider Family Medicine
DX: R68.2 Dry mouth, unspecified (principal)
CPT/HCPCS: 36415; 86038; 86235

== ENCOUNTER → 2024-07-20 17:20 | Outpatient (CLI) | payer MEDICARE, MEDICAID, SELFPAY ==
[2024-03-23 10:21] VITALS: BMI 31.3
--- NOTE | 2024-07-20 17:21 | DI.RAD.S_ITS ---
PROCEDURE: XR CHEST 2V INDICATIONS: Chest pain TECHNIQUE: 2 views of the chest were acquired. COMPARISON: [facility], CR, XR CHEST 1V, 05/06/2024, 17:20. [facility], CR, XR CHEST 1V, 12/05/2020, 17:42. FINDINGS: Surgical changes and devices: None. Lungs and pleura: Patchy left basilar opacity. Mediastinum: Mediastinal contours are normal. Heart size is normal. Bones and chest wall: No suspicious bony abnormalities. Soft tissues appear unremarkable. IMPRESSION: Patchy left basilar opacity, concerning for early infection versus atelectasis. Dictated by: Heriberto Jones M.D. on 07/22/2024 at 12:13 Approved by: Heriberto Jones M.D. on 07/22/2024 at 12:13
== END ==
LOC: RAD 17:20
PROVIDERS: Family Provider Registered Nurse Diabetes Educator; PCP Family Medicine; Referring Provider Family Medicine; Visit Provider Family Medicine
DX: R07.9 Chest pain, unspecified (principal)
CPT/HCPCS: 71046

== ENCOUNTER 2024-07-24 13:17 | Emergency (ER) | payer MEDICARE, MEDICAID, SELFPAY ==
[2024-03-23 10:21] VITALS: BMI 31.3
[2024-07-24] VITALS (7 sets, daily range): BP systolic 163–181; BP diastolic 74–104; PULSE 107–135; RESP 14–30; TEMP 37; O2SAT 97–99; BMI 42.5
--- NOTE | 2024-07-24 13:31 | DI.RAD.S_ITS ---
PROCEDURE: XR CHEST 1V INDICATIONS: suspected sepsis TECHNIQUE: One view of the chest was acquired. COMPARISON: [facility], CR, XR CHEST 2V, 07/20/2024, 17:20. FINDINGS: Low lung volumes with mild bibasilar subsegmental atelectasis some of which may be related expiratory result. [id number] bilateral perihilar and lower lobe peribronchial thickening new or increased compared to the prior exam suggests possible bronchitis, viral infection, bronchopneumonia or other process. No pneumothorax, no pleural effusion, no focal consolidation. Mediastinum: Mediastinal contours appear normal. Heart size is normal for portable AP view. Bones and chest wall: No suspicious bony lesions. IMPRESSION: Low lung volumes with mild bibasilar subsegmental atelectasis. [id number] bilateral perihilar and lower lobe peribronchial thickening new or increased compared to the prior exam suggests possible bronchitis, viral infection, bronchopneumonia or other process. Follow-up suggested. If symptoms persist or worsen, CT could be performed. Dictated by: Jos Peck M.D. on 07/24/2024 at 14:50 Approved by: Jos Peck M.D. on 07/24/2024 at 15:09
--- NOTE | 2024-07-24 13:48 | EKG_ITS ---
[address] [address] Test Date: 2024-07-24 Pat Name: Ruth Zimmer Department: [facility] Room: Gender: Female Clinician Oncology: ANDREINA : 2000 Requested By: Order Number: [id number] Reading MD: Terry Roberto Measurements Intervals [place] Rate: 118 P: 28 WY: 146 QRS: 35 QRSD: 84 T: 44 QT: 348 QTc: 487 Interpretive Statements Sinus tachycardia Electronically Signed On 07-24-2024 18:03:38 PDT by Terry Roberto
[2024-07-24 14:02] LABS: Add Manual Diff / Slide Review NO; Basophils Absolute Auto 0 /uL (0-100); Basophils Percent Auto 0.4 % (0-2); Eosinophils Absolute Auto 200 /uL (0-450); Eosinophils Percent Auto 2.3 % (2-4); Hematocrit 40.6 % (36-46); Hemoglobin 13.9 g/dL (12.0-16.0); Lymphocytes Absolute Auto 2800 /uL (1100-4500); Lymphocytes Percent Auto 26.1 % (25-40); Mean Corpuscular HGB Conc 34.1 % (30-36); Mean Corpuscular Hemoglobin 28.9 PG (26-34); Mean Corpuscular Volume 84.7 fL (80-100); Monocytes Absolute Auto 900 /uL (0-900); Monocytes Percent Auto 8.2 % (3-14); Neutrophils Absolute Auto 6700 /uL (1500-7000); Platelet Count 257 X10^3/uL (150-400); Red Blood Cell Count 4.79 X10^6/uL (4.0-5.2); Red Cell Distribution Width 13.5 % (11.6-14.8); White Blood Cell Count 10.6 X10^3/uL (4.5-11.0)
[2024-07-24 14:05] LABS: INR 1.1 (0.9-1.3); Prothrombin Time 12.8 SECONDS (9.4-12.5)
[2024-07-24 14:07] LABS: PTT Partial Thromboplastin Tim 31 SECONDS (25.1-36.5)
[2024-07-24 14:09] LABS: Creatine Kinase 78 U/L (30-135)
[2024-07-24 14:10] LABS: Lactate (Lactic Acid) 1.7 mmol/L (0.7-2.1)
[2024-07-24 14:11] LABS: Alanine Aminotransferase 24 IU/L (<35); Albumin Globulin Ratio 1.1 (1.0-2.8); Alkaline Phosphatase 62 U/L (38-126); Aspartate Aminotransferase 21 IU/L (14-36); BUN Creatinine Ratio 20.9 (6-22); Bilirubin Total 0.3 mg/dL (0.2-1.3); Blood Urea Nitrogen 9 mg/dL (7-17); Calcium 8.9 mg/dL (8.4-10.2); Carbon Dioxide 25 mmol/L (22-32); Chloride 104 mmol/L (98-107); Estimated Glomerular Filt Rate > 60 mL/min (>60); Globulin 3.6 g/dL (1.7-4.1); Glucose 151 mg/dL (70-100); HEMOLYSIS < 15 (0-50); Lipase 92 U/L (23-300); Potassium 3.8 mmol/L (3.4-5.1); Sodium 136 mmol/L (137-145); Total Protein 7.6 g/dL (6.3-8.2)
[2024-07-24 14:15] LABS: D Dimer 533 ng/ml (<500)
[2024-07-24 14:21] LABS: Troponin I < 0.012 ng/mL (0.01-0.034)
[2024-07-24 14:26] LABS: Procalcitonin < 0.030 ng/mL (<0.5)
[2024-07-24] MEDS: SODIUM CHLORIDE 0.9% 1,000 ML 1000 ML IV (14:58)
[2024-07-24 15:29] LABS: Appearance Urine UA CLEAR; Bilirubin Urine UA NEGATIVE (NEGATIVE); Color Urine UA YELLOW; Glucose Urine UA NEGATIVE (Negative); Ketones Urine UA NEGATIVE (NEGATIVE); Leukocyte Esterase Urine UA 1+ (NEGATIVE); Nitrite Urine UA NEGATIVE (Negative); Occult Blood Urine UA NEGATIVE (Negative); Protein Urine UA NEGATIVE (Negative); Urobilinogen Urine UA 0.2 E.U./dL (0.2)
--- NOTE | 2024-07-24 16:24 | ED.SOB ---
HPI - SOB/Dyspnea General Chief Complaint: Shortness of Breath/Dyspnea Stated Complaint: chest pain Time Seen by Provider: 07/24/24 16:23 Source: patient Mode of arrival: Ambulatory Limitations: no limitations History of Present Illness HPI Narrative: Patient is a 23-year-old female recently diagnosed with pneumonia started on cefpodoxime and azithromycin yesterday. She had an outpatient x-ray which was concerning for pneumonia. She has had some body aches cough and some mild shortness of breath. Presenting today with worsening symptoms. She is noted to be tachycardic but not hypoxic. No other symptoms. Related Data Home Medications Medication Instructions Recorded Confirmed melatonin 10 mg tablet 10 mg PO BEDTIME 02/01/22 07/20/24 Previous Rx's Medication Instructions Recorded tretinoin 0.025 % topical cream 1 applic topical BEDTIME #20 grams 08/01/23 (Retin-A) loratadine 10 mg tablet 10 mg PO DAILY PRN allergy 10/10/23 symptoms #90 tabs pregabalin 225 mg capsule 225 mg PO BID #60 caps 03/23/24 ketoconazole 2 % shampoo 1 applic topical .2-3XW #240 mL 04/09/24 paliperidone palmitate 234 mg/1.5 234 mg (1.5 mL) IM QMONTH #1.5 mL 05/04/24 mL intramuscular syringe ondansetron 4 mg disintegrating 4 mg PO Q8H PRN nausea #30 tabs 05/18/24 tablet nystatin 100,000 unit/gram topical 1 applic topical BID #30 grams 05/25/24 cream triamcinolone acetonide 0.1 % 1 applic topical BID #30 grams 05/25/24 topical cream fluticasone propionate 50 1 spray intranasal DAILY #16 grams 06/04/24 mcg/actuation nasal spray,suspension (Flonase Allergy Relief) hydroxyzine HCl 25 mg tablet 25 mg PO TID anxiety #90 tabs 07/14/24 quetiapine 200 mg tablet 200 mg PO BEDTIME #30 tabs 07/17/24 quetiapine 50 mg tablet 50 mg PO BID #60 tabs 07/17/24 lidocaine 5 % topical ointment 1 applic topical BID PRN pain #30 07/20/24 grams meloxicam 15 mg tablet 15 mg PO DAILY #30 tabs 07/20/24 omeprazole 20 mg capsule,delayed 20 mg PO BID #60 caps 07/20/24 release aripiprazole 5 mg tablet 10 mg (2 x 5 mg) PO DAILY #60 tabs 07/22/24 azithromycin 250 mg tablet See Rx Instructions PO .COMPLEX #6 07/22/24 tabs cefpodoxime 200 mg tablet 200 mg PO BID #10 tabs 07/22/24 prazosin 5 mg capsule 5 mg PO BEDTIME #60 caps 07/22/24 Allergies Allergy/AdvReac Type Severity Reaction Status Date / Time sulfamethoxazole Allergy Mild MAKES Verified 07/20/24 16:23 [From ] THROAT BURN trimethoprim [From ] Allergy Mild MAKES Verified 07/20/24 16:23 THROAT BURN amoxicillin Allergy Unknown ITCHING Verified 07/20/24 16:23 Patient History Medical History Low back pain Right foot pain Behavioral disorder in pediatric patient Homicidal ideation Suicidal ideations Stress due to family tension Impaired speech articulation Social anxiety disorder of childhood Fibromyalgia Allergic rhinitis Other low back pain Dehydration UTI (urinary tract infection) Otitis media Chronic headache Chronic ankle pain, bilateral Lumbosacral pain, chronic Panic anxiety syndrome Obesity History of epistaxis GERD (gastroesophageal reflux disease) Posttraumatic stress disorder Depression Family History Mother Curvature of spine Narrowing of intervertebral disc space Facet hypertrophy of lumbar region Multilevel degenerative disc disease Fibromyalgia Scoliosis Arthritis Nerve damage of left foot Nerve damage Social History marital status: unmarried,single number of children: 0 household members: family occupational status: unemployed Smoking Status: Never smoker alcohol intake: never caffeine: Yes Smoking Status: Never smoker alcohol intake frequency: holidays/special occasions only Substance Use Type: does not use Exam Initial Vital Signs Initial Vital Signs: Vital Signs Temperature 98.6 F 07/24/24 13:23 Pulse Rate 135 H 07/24/24 13:23 Respiratory Rate 28 H 07/24/24 13:23 Blood Pressure 181/104 H 07/24/24 13:23 Pulse Oximetry 98 07/24/24 13:23 Oxygen Delivery Method Room Air 07/24/24 13:23 GENERAL: Alert well-appearing 23-year-old female. HEENT: Head atraumatic,EOMI, pupils reactive, face symmetric, moist mucous membranes CARDIOVASCULAR: Tachycardic regular no murmur RESPIRATORY: Breath sounds equal bilaterally, no wheezes rales or rhonchi. No conversational dyspnea ABDOMEN: Soft, nontender. Normoactive bowel sounds all 4 quadrants. No guarding or rebound. EXTREMITIES: Normal range of motion, no clubbing or edema. Neurovascularly intact NEUROLOGICAL: Alert and oriented x4.Normal gait and speech. SKIN: Warm, dry, no laceration, no petechiae, no rashes or lesions. Course Orders Ordered: Discontinued Medications Albuterol (Albuterol Hfa Prepack) 1 box MISC DIRECTED ONE Stop: 07/24/24 16:43 Last Admin: 07/24/24 16:52 Dose: 1 box Documented By: DB Sodium Chloride (Normal Saline 0.9%) 1,000 mls @ 1,000 mls/hr IV BOLUS ONE Stop: 07/24/24 14:30 Last Infusion: 07/24/24 16:00 Dose: Infused Documented By: Admin: 07/24/24 14:58 Dose: 1,000 mls/hr Documented By: DB Ondansetron HCl (Ondansetron 4 Mg/2 Ml Inj) 4 mg IV NOW PRN PRN Reason: Nausea And Vomiting Ondansetron HCl (Ondansetron 4 Mg Odt) 4 mg SL NOW PRN PRN Reason: Nausea And Vomiting Vital Signs Vital signs: Vital Signs - 8 hr 07/24/24 13:23 07/24/24 14:43 07/24/24 14:44 Temperature 98.6 F Pulse Rate 135 H 125 H 125 H Respiratory Rate 28 H 24 24 Blood Pressure 181/104 H Pulse Oximetry 98 99 97 Oxygen Delivery Method Room Air 07/24/24 14:44 07/24/24 15:00 07/24/24 15:00 Temperature Pulse Rate 114 H Respiratory Rate 25 H Blood Pressure 177/85 H 163/81 H Pulse Oximetry 99 Oxygen Delivery Method 07/24/24 15:30 07/24/24 15:30 07/24/24 16:00 Temperature Pulse Rate 112 H Respiratory Rate 28 H Blood Pressure 164/74 H 165/80 H Pulse Oximetry 99 Oxygen Delivery Method 07/24/24 16:00 Temperature Pulse Rate 107 H Respiratory Rate 30 H Blood Pressure Pulse Oximetry 99 Oxygen Delivery Method [facility] - SOB/Dyspnea Lab Data 07/24/24 13:40 07/24/24 13:40 Labs: Lab Results 07/24/24 07/24/24 07/24/24 Range/Units 13:40 14:07 14:07 WBC 10.6 (4.5-11.0) X10^3/uL RBC 4.79 (4.0-5.2) X10^6/uL Hgb 13.9 (12.0-16.0) g/dL Hct 40.6 (36-46) % MCV 84.7 (80-100) fL MCH 28.9 (26-34) PG MCHC 34.1 (30-36) % RDW 13.5 (11.6-14.8) % Plt Count 257 (150-400) X10^3/uL Neut % (Auto) 63.0 (50-75) % Lymph % (Auto) 26.1 (25-40) % [place] % (Auto) 8.2 (3-14) % Eos % (Auto) 2.3 (2-4) % Baso % (Auto) 0.4 (0-2) % Neut # (Auto) 6700 (6469-4776) /uL Lymph # (Auto) 2800 (4732-4458) /uL [place] # (Auto) 900 (0-900) /uL Eos # (Auto) 200 (0-450) /uL Baso # (Auto) 0 (0-100) /uL PT 12.8 H (9.4-12.5) SECONDS INR 1.1 (0.9-1.3) APTT 31 (25.1-36.5) SECONDS D-Dimer 533 H (<500) ng/ml Sodium 136 L (137-145) mmol/L Potassium 3.8 (3.4-5.1) mmol/L Chloride 104 (98-107) mmol/L Carbon Dioxide 25 (22-32) mmol/L BUN 9 (7-17) mg/dL Creatinine 0.43 L (0.52-1.04) mg/dL Estimated GFR > 60 (>60) mL/min BUN/Creatinine Ratio 20.9 (6-22) Glucose 151 H (70-100) mg/dL Lactate 1.7 (0.7-2.1) mmol/L Calcium 8.9 (8.4-10.2) mg/dL Total Bilirubin 0.3 (0.2-1.3) mg/dL AST 21 (14-36) IU/L ALT 24 (<35) IU/L Alkaline Phosphatase 62 (38-126) U/L Total Creatine Kinase 78 (30-135) U/L Troponin I < 0.012 (0.01-0.034) ng/mL Total Protein 7.6 (6.3-8.2) g/dL Albumin 4.0 (3.5-5.0) g/dL Globulin 3.6 (1.7-4.1) g/dL Albumin/Globulin Ratio 1.1 (1.0-2.8) Lipase 92 (23-300) U/L Procalcitonin < 0.030 (<0.5) ng/mL Urine Color Yellow Urine Appearance Clear Urine pH 6.0 (4.5-8.0) Ur Specific [place] 1.020 (1.000-1.035) Urine Protein Negative (Negative) Urine Glucose (UA) Negative (Negative) g/dL Urine Ketones Negative (NEGATIVE) Urine Occult Blood Negative (Negative) Urine Nitrate Negative (Negative) Urine Bilirubin Negative (NEGATIVE) Urine Urobilinogen 0.2 (0.2) E.U./dL Ur Leukocyte Esterase 1+ H (NEGATIVE) Urine RBC Cancelled None seen Urine WBC Cancelled Ur Squamous Epith Cells Ur Transition Epith Cell Ur Renal Epithelial Cell Calcium Oxalate Crystal Uric Acid Crystals Triple Phos Crystals Other Crystals Amorphous Sediment Urine Bacteria Hyaline Casts Granular Casts RBC Casts WBC Casts Other Casts Urine Mucus Urine Trichomonas Urine Yeast Urine Sperm Ur Culture Indicated? Micro UA Comment Vol Urine Centrifuged 07/24/24 07/24/24 07/24/24 Range/Units 14:07 14:07 14:07 WBC (4.5-11.0) X10^3/uL RBC (4.0-5.2) X10^6/uL Hgb (12.0-16.0) g/dL Hct (36-46) % MCV (80-100) fL MCH (26-34) PG MCHC (30-36) % RDW (11.6-14.8) % Plt Count (150-400) X10^3/uL Neut % (Auto) (50-75) % Lymph % (Auto) (25-40) % [place] % (Auto) (3-14) % Eos % (Auto) (2-4) % Baso % (Auto) (0-2) % Neut # (Auto) (2395-8652) /uL Lymph # (Auto) (0296-5975) /uL [place] # (Auto) (0-900) /uL Eos # (Auto) (0-450) /uL Baso # (Auto) (0-100) /uL PT (9.4-12.5) SECONDS INR (0.9-1.3) APTT (25.1-36.5) SECONDS D-Dimer (<500) ng/ml Sodium (137-145) mmol/L Potassium (3.4-5.1) mmol/L Chloride (98-107) mmol/L Carbon Dioxide (22-32) mmol/L BUN (7-17) mg/dL Creatinine (0.52-1.04) mg/dL Estimated GFR (>60) mL/min BUN/Creatinine Ratio (6-22) Glucose (70-100) mg/dL Lactate (0.7-2.1) mmol/L Calcium (8.4-10.2) mg/dL Total Bilirubin (0.2-1.3) mg/dL AST (14-36) IU/L ALT (<35) IU/L Alkaline Phosphatase (38-126) U/L Total Creatine Kinase (30-135) U/L Troponin I (0.01-0.034) ng/mL Total Protein (6.3-8.2) g/dL Albumin (3.5-5.0) g/dL Globulin (1.7-4.1) g/dL Albumin/Globulin Ratio (1.0-2.8) Lipase (23-300) U/L Procalcitonin (<0.5) ng/mL Urine Color Urine Appearance Urine pH (4.5-8.0) Ur Specific [place] (1.000-1.035) Urine Protein (Negative) Urine Glucose (UA) (Negative) g/dL Urine Ketones (NEGATIVE) Urine Occult Blood (Negative) Urine Nitrate (Negative) Urine Bilirubin (NEGATIVE) Urine Urobilinogen (0.2) E.U./dL Ur Leukocyte Esterase (NEGATIVE) Urine RBC Urine WBC 1-5/hpf Ur Squamous Epith Cells Cancelled 0-1 /hpf D Ur Transition Epith Cell Cancelled Ur Renal Epithelial Cell Cancelled Calcium Oxalate Crystal Cancelled Uric Acid Crystals Cancelled Triple Phos Crystals Cancelled Other Crystals Cancelled Amorphous Sediment Cancelled Urine Bacteria Cancelled Few (2-10) H Hyaline Casts Cancelled Granular Casts Cancelled RBC Casts Cancelled WBC Casts Cancelled Other Casts Cancelled Urine Mucus Cancelled Urine Trichomonas Cancelled Urine Yeast Cancelled Urine Sperm Cancelled Ur Culture Indicated? Cancelled Micro UA Comment Vol Urine Centrifuged 07/24/24 07/24/24 Range/Units 14:07 14:07 WBC (4.5-11.0) X10^3/uL RBC (4.0-5.2) X10^6/uL Hgb (12.0-16.0) g/dL Hct (36-46) % MCV (80-100) fL MCH (26-34) PG MCHC (30-36) % RDW (11.6-14.8) % Plt Count (150-400) X10^3/uL Neut % (Auto) (50-75) % Lymph % (Auto) (25-40) % [place] % (Auto) (3-14) % Eos % (Auto) (2-4) % Baso % (Auto) (0-2) % Neut # (Auto) (6481-4871) /uL Lymph # (Auto) (9466-0481) /uL [place] # (Auto) (0-900) /uL Eos # (Auto) (0-450) /uL Baso # (Auto) (0-100) /uL PT (9.4-12.5) SECONDS INR (0.9-1.3) APTT (25.1-36.5) SECONDS D-Dimer (<500) ng/ml Sodium (137-145) mmol/L Potassium (3.4-5.1) mmol/L Chloride (98-107) mmol/L Carbon Dioxide (22-32) mmol/L BUN (7-17) mg/dL Creatinine (0.52-1.04) mg/dL Estimated GFR (>60) mL/min BUN/Creatinine Ratio (6-22) Glucose (70-100) mg/dL Lactate (0.7-2.1) mmol/L Calcium (8.4-10.2) mg/dL Total Bilirubin (0.2-1.3) mg/dL AST (14-36) IU/L ALT (<35) IU/L Alkaline Phosphatase (38-126) U/L Total Creatine Kinase (30-135) U/L Troponin I (0.01-0.034) ng/mL Total Protein (6.3-8.2) g/dL Albumin (3.5-5.0) g/dL Globulin (1.7-4.1) g/dL Albumin/Globulin Ratio (1.0-2.8) Lipase (23-300) U/L Procalcitonin (<0.5) ng/mL Urine Color Urine Appearance Urine pH (4.5-8.0) Ur Specific [place] (1.000-1.035) Urine Protein (Negative) Urine Glucose (UA) (Negative) g/dL Urine Ketones (NEGATIVE) Urine Occult Blood (Negative) Urine Nitrate (Negative) Urine Bilirubin (NEGATIVE) Urine Urobilinogen (0.2) E.U./dL Ur Leukocyte Esterase (NEGATIVE) Urine RBC Urine WBC Ur Squamous Epith Cells Ur Transition Epith Cell Ur Renal Epithelial Cell Calcium Oxalate Crystal Uric Acid Crystals Triple Phos Crystals Other Crystals Amorphous Sediment Urine Bacteria Hyaline Casts Granular Casts RBC Casts WBC Casts Other Casts Urine Mucus Urine Trichomonas Urine Yeast Urine Sperm Ur Culture Indicated? Specimen cultured Micro UA Comment Cancelled Vol Urine Centrifuged Cancelled 10ml (spun) Point of Care Testing Test Results Negative Imaging Data Chest x-ray: Radiologist's Impression: PROCEDURE: XR CHEST 1V INDICATIONS: suspected sepsis TECHNIQUE: One view of the chest was acquired. COMPARISON: [facility], , XR CHEST 2V, 07/20/2024, 17:20. FINDINGS: Low lung volumes with mild bibasilar subsegmental atelectasis some of which may be related expiratory result. [id number] bilateral perihilar and lower lobe peribronchial thickening new or increased compared to the prior exam suggests possible bronchitis, viral infection, bronchopneumonia or other process. No pneumothorax, no pleural effusion, no focal consolidation. Mediastinum: Mediastinal contours appear normal. Heart size is normal for portable AP view. Bones and chest wall: No suspicious bony lesions. IMPRESSION: Low lung volumes with mild bibasilar subsegmental atelectasis. [id number] bilateral perihilar and lower lobe peribronchial thickening new or increased compared to the prior exam suggests possible bronchitis, viral infection, bronchopneumonia or other process. Follow-up suggested. If symptoms persist or worsen, CT could be performed. Dictated by: Jos Peck M.D. on 07/24/2024 at 14:50 ECG Data Attestation: I personally reviewed and interpreted this ECG as follows: Prior ECG tracings: available for review Interpretation: Sinus tachycardia rate 118 NV interval 140 84 QTC 487 no S-wave no T-wave inversion no ischemia MDM Narrative Medical decision making narrative: 23-year-old female with recent diagnosis of pneumonia started on antibiotics presents today with worsening symptoms. She is noted to be tachycardic she has no evidence of respiratory distress and lung sounds are clear. X-ray today shows ongoing pneumonia, versus bronchitis Blood work no leukocytosis WBC is 10.6, lactate 1.7 procalcitonin undetectable Electrolytes and kidney function are stable creatinine is 0.43 EKG has been reviewed sinus tachycardia Patient received IV fluids Zofran. Heart rate has improved. She overall appears comfortable no evidence of sepsis. She was already on p.o. antibiotics is appropriate for outpatient treatment. She complains of coughing but not coughing here. She is given albuterol inhaler and spacer. Discharge Plan Departure Patient Disposition: Home Clinical Impression: Pneumonia Instructions: Atypical Pneumonia Activity Restrictions/Additional Instructions: *You have been diagnosed with pneumonia *What to do: At this time you do have pneumonia on your x-ray. Blood work is overall reassuring today. Please stay hydrated and rest. *Continue to take medications as directed Finish your antibiotics as prescribed Albuterol inhaler 1-2 puffs every 4 hours only if needed for severe coughing fits or shortness of breath *Follow up with your primary care provider in 2-3 days or call [phone] *Return to ER if you should have increasing shortness of breath or chest pain or any new, worsening or concerning symptoms Prescriptions: No Action fluticasone propionate [Flonase Allergy Relief] 50 mcg/actuation spray,suspension 1 spray intranasal DAILY Qty: 16 1RF Rx Instructions: administer into each nostril meloxicam 15 mg tablet 15 mg PO DAILY Qty: 30 1RF lidocaine 5 % ointment 1 applic topical BID PRN (Reason: pain) Qty: 30 0RF omeprazole 20 mg capsule,delayed release(DR/EC) 20 mg PO BID Qty: 60 1RF melatonin 10 mg tablet 10 mg PO BEDTIME ondansetron 4 mg tablet,disintegrating 4 mg PO Q8H PRN (Reason: nausea) Qty: 30 0RF aripiprazole 5 mg tablet 10 mg PO DAILY Qty: 60 3RF prazosin 5 mg capsule 5 mg PO BEDTIME Qty: 60 5RF loratadine 10 mg tablet 10 mg PO DAILY PRN (Reason: allergy symptoms) Qty: 90 3RF ketoconazole 2 % shampoo 1 applic TOP .2-3XW Qty: 240 3RF Rx Instructions: Apply to scalp 2-3 times weekly for dandruff paliperidone palmitate 234 mg/1.5 mL syringe 234 mg IM QMONTH Qty: 1.5 5RF nystatin 100,000 unit/gram cream 1 applic topical BID Qty: 30 0RF triamcinolone acetonide 0.1 % cream 1 applic topical BID Qty: 30 0RF hydroxyzine HCl 25 mg tablet 25 mg PO TID Qty: 90 0RF quetiapine 200 mg tablet 200 mg PO BEDTIME Qty: 30 1RF Rx Instructions: take with one 50mg tab for a total of 250mg at bedtime. quetiapine 50 mg tablet 50 mg PO BID Qty: 60 1RF Rx Instructions: Take 1 tab in afternoon and 1 tab in the evening with 200mg tab. cefpodoxime 200 mg tablet 200 mg PO BID Qty: 10 0RF Rx Instructions: must administer with a meal/food azithromycin 250 mg tablet See Rx Instructions PO .COMPLEX Qty: 6 0RF Rx Instructions: For 250 mg dose pack: take 500 mg today (day 1), then 250 mg for 4 days (days 2-5) PO tretinoin [Retin-A] 0.025 % cream 1 applic topical BEDTIME Qty: 20 3RF pregabalin 225 mg capsule 225 mg PO BID Qty: 60 2RF Referrals: Radha Acevedo MD [Primary Care Provider] - Stand Alone Forms: Patient Portal/API
[2024-07-24 16:30] LABS: Bacteria Urine Few (2-10); RBC Urine None Seen (0-5/HPF); Urine Volume 10mL (spun)
[2024-07-24 16:31] LABS: Culture Indicated Urine Specimen Cultured; Squamous Epithelial Cell Urine 0-1 /HPF (0-5/HPF); WBC Urine 1-5/HPF (0-5/HPF)
[2024-07-24] MEDS: ALBUTEROL HFA PREPACK 1 BOX MISC (16:52)
== END 2024-07-24 17:00 | disposition home or self-care (01) ==
PROVIDERS: Emergency Provider Emergency Medicine; Family Provider Registered Nurse Diabetes Educator; PCP Family Medicine
DX: J18.9 Pneumonia, unspecified organism (principal); R00.0 Tachycardia, unspecified
CPT/HCPCS: 36415; 71045; 80053; 81001; 81025; 82550; 83605; 83690; 84145; 84484; 85025; 85379; 85610; 85730; 87040; 87086; 93005; 96360; 99284

== ENCOUNTER 2024-07-27 12:39 | Emergency (ER) | payer MEDICARE, MEDICAID, SELFPAY ==
[2024-03-23 10:21] VITALS: BMI 31.3
[2024-07-27] VITALS (7 sets, daily range): BP systolic 130–167; BP diastolic 60–100; PULSE 100–139; RESP 14–16; TEMP 36.4; O2SAT 97–100; BMI 42.5
--- NOTE | 2024-07-27 12:47 | ED_ITS ---
HPI - Chest Pain General Chief Complaint: Chest Pain Stated Complaint: chest pain Time Seen by Provider: 07/27/24 12:47 Source: patient Mode of arrival: Ambulatory Limitations: no limitations History of Present Illness HPI narrative: Patient is a 23-year-old female past medical history of anxiety, depression comes into the ED for evaluation of shortness of breath, dyspnea, chest pain, patient was seen here on 07/24/2024 for the same. Review of records show the patient was diagnosed with pneumonia was started on cefpodoxime and azithromycin. Patient states that her symptoms have not gone away therefore decided come into the ED for evaluation treatment. Has been compliant with her medications. No trauma no falls Related Data Home Medications Medication Instructions Recorded Confirmed melatonin 10 mg tablet 10 mg PO BEDTIME 02/01/22 07/20/24 Previous Rx's Medication Instructions Recorded tretinoin 0.025 % topical cream 1 applic topical BEDTIME #20 grams 08/01/23 (Retin-A) loratadine 10 mg tablet 10 mg PO DAILY PRN allergy 10/10/23 symptoms #90 tabs pregabalin 225 mg capsule 225 mg PO BID #60 caps 03/23/24 ketoconazole 2 % shampoo 1 applic topical .2-3XW #240 mL 04/09/24 paliperidone palmitate 234 mg/1.5 234 mg (1.5 mL) IM QMONTH #1.5 mL 05/04/24 mL intramuscular syringe ondansetron 4 mg disintegrating 4 mg PO Q8H PRN nausea #30 tabs 05/18/24 tablet nystatin 100,000 unit/gram topical 1 applic topical BID #30 grams 05/25/24 cream triamcinolone acetonide 0.1 % 1 applic topical BID #30 grams 05/25/24 topical cream fluticasone propionate 50 1 spray intranasal DAILY #16 grams 06/04/24 mcg/actuation nasal spray,suspension (Flonase Allergy Relief) hydroxyzine HCl 25 mg tablet 25 mg PO TID anxiety #90 tabs 07/14/24 quetiapine 200 mg tablet 200 mg PO BEDTIME #30 tabs 07/17/24 quetiapine 50 mg tablet 50 mg PO BID #60 tabs 07/17/24 lidocaine 5 % topical ointment 1 applic topical BID PRN pain #30 07/20/24 grams meloxicam 15 mg tablet 15 mg PO DAILY #30 tabs 07/20/24 omeprazole 20 mg capsule,delayed 20 mg PO BID #60 caps 07/20/24 release aripiprazole 5 mg tablet 10 mg (2 x 5 mg) PO DAILY #60 tabs 07/22/24 azithromycin 250 mg tablet See Rx Instructions PO .COMPLEX #6 07/22/24 tabs cefpodoxime 200 mg tablet 200 mg PO BID #10 tabs 07/22/24 prazosin 5 mg capsule 5 mg PO BEDTIME #60 caps 07/22/24 Allergies Allergy/AdvReac Type Severity Reaction Status Date / Time sulfamethoxazole Allergy Mild MAKES Verified 07/20/24 16:23 [From ] THROAT BURN trimethoprim [From ] Allergy Mild MAKES Verified 07/20/24 16:23 THROAT BURN amoxicillin Allergy Unknown ITCHING Verified 07/20/24 16:23 Review of Systems Review of Systems Narrative: HEENT: Denies headache, eye drainage, eye irritation, head trauma, sore throat, voice change Cardiovascular: Positive for palpitations chest pain, shortness of breath, dyspnea Respiratory: Denies any shortness of breath, cough, wheeze, stridor GI/: Denies any abdominal pain, nausea, vomiting, diarrhea, bright red blood per rectum, melanotic stools, urinary frequency, urinary retention, dysuria, hematuria MSK: Denies any joint pain, muscle pains, swelling Skin: Denies any rashes, lesions, discoloration Neuro: Denies any headache, lightheadedness, dizziness, fainting, weakness Psych: Denies SI/HI Patient History Medical History Low back pain Right foot pain Behavioral disorder in pediatric patient Homicidal ideation Suicidal ideations Stress due to family tension Impaired speech articulation Social anxiety disorder of childhood Fibromyalgia Allergic rhinitis Other low back pain Dehydration UTI (urinary tract infection) Otitis media Chronic headache Chronic ankle pain, bilateral Lumbosacral pain, chronic Panic anxiety syndrome Obesity History of epistaxis GERD (gastroesophageal reflux disease) Posttraumatic stress disorder Depression Family History Mother Curvature of spine Narrowing of intervertebral disc space Facet hypertrophy of lumbar region Multilevel degenerative disc disease Fibromyalgia Scoliosis Arthritis Nerve damage of left foot Nerve damage Social History (Reviewed 07/24/24 @ 16:38 by GENNY Gracia marital status: unmarried,single number of children: 0 household members: family occupational status: unemployed Smoking Status: Never smoker alcohol intake: never caffeine: Yes Smoking Status: Never smoker alcohol intake frequency: holidays/special occasions only Substance Use Type: does not use Exam Narrative Exam Narrative: General: Cooperative, comfortable, well-developed, not in acute distress HEENT: Normocephalic, atraumatic, PERRLA, normal sclera, eyelids normal, Neck: Active full range of motion, atraumatic Chest: Normal to inspection, negative crepitus, no overlying erythema ecchymosis Respiratory: Normal respiratory effort, not in acute respiratory distress, clear to auscultation bilaterally negative cough, wheeze, tachypnea, rhonchi, rales Cardiology: Regular rate rhythm negative gallop, murmur, rubs GI/: Normal to inspection, soft, nonrigid, no tenderness to palpation, exam deferred MSK: Full range of active range of motion of all 4 extremities, atraumatic Skin: No rashes lesions noted Neuro: Alert awake oriented x3, moves all 4 extremities spontaneously, cranial nerves intact, able to answer all questions appropriately follows commands appropriately Psych: Cooperative, negative suicidal or homicidal ideations Initial Vital Signs Initial Vital Signs: Vital Signs Temperature 97.5 F L 07/27/24 12:40 Pulse Rate 139 H 07/27/24 12:40 Respiratory Rate 16 07/27/24 12:40 Blood Pressure 167/99 H 07/27/24 12:40 Pulse Oximetry 100 07/27/24 12:40 Oxygen Delivery Method Room Air 07/27/24 12:40 Scores HEART Score Heart Score history: Slightly Suspicious Heart Score EKG: Normal Heart Score Age: < 45 years old Heart Score risk factors: No known risk factors Heart Score troponin: < or = to normal limit Heart Score Total: 0 Course Orders Ordered: ED Orders 07/27/24 12:49 XR chest 1V Stat EKG-12 Lead Stat 07/27/24 12:55 Urine Microscopic Stat 07/27/24 13:28 Covid-19 + FLU A/B + RSV - PCR Stat 07/27/24 13:31 Complete Blood Count AUTO DIFF Stat Comprehensive Metabolic Panel Stat Lipase Stat TSH [Thyroid Stimulating Hormone] Stat Troponin & CK Cardiac Panel Stat Sodium Chloride (Normal Saline 0.9%) 1,000 mls @ 150 mls/hr IV CONT BAILEE Last Admin: 07/27/24 13:26 Dose: Not Given Documented By: Vital Signs Vital signs: Vital Signs - 8 hr 07/27/24 12:40 07/27/24 13:01 07/27/24 13:02 Temperature 97.5 F L Pulse Rate 139 H Respiratory Rate 16 Blood Pressure 167/99 H 162/100 H Pulse Oximetry 100 97 Oxygen Delivery Method Room Air 07/27/24 13:02 07/27/24 13:30 07/27/24 13:30 Temperature Pulse Rate 109 H 106 H Respiratory Rate Blood Pressure 151/90 H Pulse Oximetry 97 97 Oxygen Delivery Method 07/27/24 14:00 07/27/24 14:00 Temperature Pulse Rate 108 H Respiratory Rate 15 Blood Pressure 156/84 H Pulse Oximetry 98 Oxygen Delivery Method MDM - Chest Pain Differential Diagnosis Differential diagnosis: Likely pneumothorax, chest pain and other (Pneumonia, COVID, flu) Lab Data 07/27/24 13:31 07/27/24 13:31 Labs: Lab Results 07/27/24 07/27/24 07/27/24 Range/Units 12:55 13:28 13:31 WBC 11.1 H (4.5-11.0) X10^3/uL RBC 4.68 (4.0-5.2) X10^6/uL Hgb 13.4 (12.0-16.0) g/dL Hct 38.9 (36-46) % MCV 83.1 (80-100) fL MCH 28.6 (26-34) PG MCHC 34.4 (30-36) % RDW 13.2 (11.6-14.8) % Plt Count 256 (150-400) X10^3/uL Neut % (Auto) 61.1 (50-75) % Lymph % (Auto) 26.9 (25-40) % Wallace % (Auto) 10.0 (3-14) % Eos % (Auto) 1.6 L (2-4) % Baso % (Auto) 0.4 (0-2) % Neut # (Auto) 6800 (7139-6774) /uL Lymph # (Auto) 3000 (0451-3793) /uL Wallace # (Auto) 1100 H (0-900) /uL Eos # (Auto) 200 (0-450) /uL Baso # (Auto) 0 (0-100) /uL Sodium 137 (137-145) mmol/L Potassium 3.7 (3.4-5.1) mmol/L Chloride 103 (98-107) mmol/L Carbon Dioxide 26 (22-32) mmol/L BUN 10 (7-17) mg/dL Creatinine 0.44 L (0.52-1.04) mg/dL Estimated GFR > 60 (>60) mL/min BUN/Creatinine Ratio 22.7 H (6-22) Glucose 79 (70-100) mg/dL Calcium 8.8 (8.4-10.2) mg/dL Total Bilirubin 0.4 (0.2-1.3) mg/dL AST 24 (14-36) IU/L ALT 25 (<35) IU/L Alkaline Phosphatase 63 (38-126) U/L Total Creatine Kinase 64 (30-135) U/L Troponin I < 0.012 (0.01-0.034) ng/mL Total Protein 7.4 (6.3-8.2) g/dL Albumin 3.9 (3.5-5.0) g/dL Globulin 3.5 (1.7-4.1) g/dL Albumin/Globulin Ratio 1.1 (1.0-2.8) Lipase 64 (23-300) U/L TSH 2.13 (0.47-4.68) uIU/mL Urine RBC 1-5/hpf (0-5/HPF) Urine WBC 1-5/hpf (0-5/HPF) Ur Squamous Epith Cells 10-30 /hpf H D (0-5/HPF) Urine Bacteria Few (2-10) H (None) Urine Mucus 2+ H (Negative) Ur Culture Indicated? Cult not indicated Vol Urine Centrifuged 10ml (spun) SARS-CoV-2 (PCR) Negative (Negative) Influenza A (RT-PCR) Flu a negative (NEGATIVE) Influenza B (RT-PCR) Flu b negative (NEGATIVE) RSV (PCR) Negative (Negative) Point of Care Testing Test Results Negative Urine Dip Bedside Urine Glucose Negative Bedside Urine Bilirubin - Negative Bedside Urine Ketone - Negative Urine Specific [place] 1.010 Bedside Urine Occult Blood - Negative Bedside Urine pH 6.0 Bedside Urine Protein +/- 15 Bedside Urine Urobilinogen - Negative Bedside Urine Nitrite - Negative Bedside Urine Leukocytes + 70 Esterase MDM Narrative Medical decision making narrative: Patient 23-year-old female no significant past medical history comes into the ED from home for evaluation chest pain dyspnea ongoing present for the past several days/weeks. Has been seen here multiple times for the same has had negative workup multiple times, was diagnosed with a pneumonia and sent home on antibiotics here lab work imaging not showing any new findings. Patient chest x-ray showing improving/resolved pneumonia. Patient afebrile nontoxic not requiring any supplemental oxygen will be discharged home with outpatient follow-up Discharge Plan Departure Patient Disposition: Home Clinical Impression: Heart palpitations Activity Restrictions/Additional Instructions: Please read the discharge instructions sheet carefully and bring all papers to all doctor follow-up visits, as it may contain information that your doctor may want to see. Disease processes change and evolve, if your symptoms worsen or if you develop any new symptoms that are concerning to you please return for evaluation. Your evaluation today does not show any evidence of any life- threatening/serious illnesses requiring admission to the hospital or surgery. Please follow-up with your doctor for re-evaluation in approximately 1 day. Seek immediate medical attention for any worrisome symptoms. Prescriptions: No Action fluticasone propionate [Flonase Allergy Relief] 50 mcg/actuation spray,suspension 1 spray intranasal DAILY Qty: 16 1RF Rx Instructions: administer into each nostril meloxicam 15 mg tablet 15 mg PO DAILY Qty: 30 1RF lidocaine 5 % ointment 1 applic topical BID PRN (Reason: pain) Qty: 30 0RF omeprazole 20 mg capsule,delayed release(DR/EC) 20 mg PO BID Qty: 60 1RF melatonin 10 mg tablet 10 mg PO BEDTIME ondansetron 4 mg tablet,disintegrating 4 mg PO Q8H PRN (Reason: nausea) Qty: 30 0RF aripiprazole 5 mg tablet 10 mg PO DAILY Qty: 60 3RF prazosin 5 mg capsule 5 mg PO BEDTIME Qty: 60 5RF loratadine 10 mg tablet 10 mg PO DAILY PRN (Reason: allergy symptoms) Qty: 90 3RF ketoconazole 2 % shampoo 1 applic TOP .2-3XW Qty: 240 3RF Rx Instructions: Apply to scalp 2-3 times weekly for dandruff paliperidone palmitate 234 mg/1.5 mL syringe 234 mg IM QMONTH Qty: 1.5 5RF nystatin 100,000 unit/gram cream 1 applic topical BID Qty: 30 0RF triamcinolone acetonide 0.1 % cream 1 applic topical BID Qty: 30 0RF hydroxyzine HCl 25 mg tablet 25 mg PO TID Qty: 90 0RF quetiapine 200 mg tablet 200 mg PO BEDTIME Qty: 30 1RF Rx Instructions: take with one 50mg tab for a total of 250mg at bedtime. quetiapine 50 mg tablet 50 mg PO BID Qty: 60 1RF Rx Instructions: Take 1 tab in afternoon and 1 tab in the evening with 200mg tab. cefpodoxime 200 mg tablet 200 mg PO BID Qty: 10 0RF Rx Instructions: must administer with a meal/food azithromycin 250 mg tablet See Rx Instructions PO .COMPLEX Qty: 6 0RF Rx Instructions: For 250 mg dose pack: take 500 mg today (day 1), then 250 mg for 4 days (days 2-5) PO tretinoin [Retin-A] 0.025 % cream 1 applic topical BEDTIME Qty: 20 3RF pregabalin 225 mg capsule 225 mg PO BID Qty: 60 2RF Referrals: Radha Acevedo MD [Primary Care Provider] - Stand Alone Forms: Patient Portal/API
--- NOTE | 2024-07-27 12:49 | DI.RAD.S_ITS ---
PROCEDURE: XR CHEST 1V INDICATIONS: chest pain TECHNIQUE: One view of the chest was acquired. COMPARISON: [facility], CR, XR CHEST 1V, 07/24/2024, 13:48. FINDINGS: Overall there has been some interval improvement in low lung volumes and mild bibasilar subsegmental atelectasis as well as in mild bilateral perihilar and lower lobe peribronchial thickening may be related to improving bronchitis, viral infection, asthma or other process. No pneumothorax, no pleural effusion, no lobar consolidation. Cardiopericardial silhouette and pulmonary vasculature within normal limits. IMPRESSION: Improving low lung volumes, subsegmental atelectasis, peribronchial thickening as discussed above. Continued clinical follow-up suggested. If symptoms persist or worsen, CT chest could be performed. Dictated by: Jos Peck M.D. on 07/27/2024 at 13:10 Approved by: Jos Peck M.D. on 07/27/2024 at 13:17
--- NOTE | 2024-07-27 13:04 | EKG_ITS ---
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
[2024-07-27 13:41] LABS: Add Manual Diff / Slide Review NO; Basophils Absolute Auto 0 /uL (0-100); Basophils Percent Auto 0.4 % (0-2); Eosinophils Absolute Auto 200 /uL (0-450); Eosinophils Percent Auto 1.6 % (2-4); Hematocrit 38.9 % (36-46); Hemoglobin 13.4 g/dL (12.0-16.0); Lymphocytes Absolute Auto 3000 /uL (1100-4500); Lymphocytes Percent Auto 26.9 % (25-40); Mean Corpuscular HGB Conc 34.4 % (30-36); Mean Corpuscular Hemoglobin 28.6 PG (26-34); Mean Corpuscular Volume 83.1 fL (80-100); Monocytes Absolute Auto 1100 /uL (0-900); Neutrophils Absolute Auto 6800 /uL (1500-7000); Neutrophils Percent Auto 61.1 % (50-75); Platelet Count 256 X10^3/uL (150-400); Red Blood Cell Count 4.68 X10^6/uL (4.0-5.2); Red Cell Distribution Width 13.2 % (11.6-14.8); White Blood Cell Count 11.1 X10^3/uL (4.5-11.0)
[2024-07-27 13:45] LABS: Bacteria Urine Few (2-10); Culture Indicated Urine Cult Not Indicated; Mucus Urine 2+ (Negative); RBC Urine 1-5/HPF (0-5/HPF); Squamous Epithelial Cell Urine 10-30 /HPF (0-5/HPF); Urine Volume 10mL (spun); WBC Urine 1-5/HPF (0-5/HPF)
[2024-07-27 14:00] LABS: Alanine Aminotransferase 25 IU/L (<35); Albumin 3.9 g/dL (3.5-5.0); Albumin Globulin Ratio 1.1 (1.0-2.8); Alkaline Phosphatase 63 U/L (38-126); Aspartate Aminotransferase 24 IU/L (14-36); BUN Creatinine Ratio 22.7 (6-22); Bilirubin Total 0.4 mg/dL (0.2-1.3); Blood Urea Nitrogen 10 mg/dL (7-17); Calcium 8.8 mg/dL (8.4-10.2); Carbon Dioxide 26 mmol/L (22-32); Chloride 103 mmol/L (98-107); Creatine Kinase 64 U/L (30-135); Estimated Glomerular Filt Rate > 60 mL/min (>60); Globulin 3.5 g/dL (1.7-4.1); Glucose 79 mg/dL (70-100); HEMOLYSIS < 15 (0-50); Lipase 64 U/L (23-300); Potassium 3.7 mmol/L (3.4-5.1); Sodium 137 mmol/L (137-145); Total Protein 7.4 g/dL (6.3-8.2)
[2024-07-27 14:12] LABS: Troponin I < 0.012 ng/mL (0.01-0.034)
[2024-07-27 14:17] LABS: Influenza A - CEPHEID Flu A NEGATIVE (NEGATIVE); Influenza B - CEPHEID Flu B NEGATIVE (NEGATIVE); Respiratory Syncytial Virus Negative (Negative)
[2024-07-27 14:30] LABS: Thyroid Stimulating Hormone 2.13 uIU/mL (0.47-4.68)
[2024-07-27 14:33] LABS: COVID-19 CEPHEID 4-PLEX PCR Negative (Negative)
== END 2024-07-27 14:53 | disposition home or self-care (01) ==
PROVIDERS: Emergency Provider Student in an Organized Health Care Education/Training Program; Family Provider Registered Nurse Diabetes Educator; PCP Family Medicine
DX: R00.2 Palpitations (principal); R07.9 Chest pain, unspecified; R06.02 Shortness of breath; Z11.52 Encounter for screening for COVID-19; R00.0 Tachycardia, unspecified
CPT/HCPCS: 0241U; 71045; 80053; 81003; 81015; 81025; 82550; 83690; 84443; 84484; 85025; 93005; 99283; 99284

== ENCOUNTER → 2024-07-31 09:10 | Outpatient (CLI) | payer MEDICARE, MEDICAID, SELFPAY ==
[2024-03-23 10:21] VITALS: BMI 31.3
--- NOTE | 2024-07-31 09:11 | DI.CT.S_ITS ---
PROCEDURE: CT CHEST WO CON INDICATIONS: shortness of breath, cough, subacute chest pain TECHNIQUE: Noncontrast 5 mm thick sections acquired from the pulmonary apices to the posterior costophrenic angles. 1 mm lung window, 5 mm thick coronal and sagittal and 7 mm axial MIP reformats were then acquired. For radiation dose reduction, the following was used: automated exposure control, adjustment of mA and/or kV according to patient size. COMPARISON: None. FINDINGS: Low lung volumes with mild bibasilar subsegmental atelectasis some of which may be related expiratory result. Mild bilateral perihilar and lower lobe peribronchial thickening with mild lower lobe ground-glass opacities some of which commonly related expiratory result although mild bronchitis, asthma, viral infection or other process could be considered. Mild degenerative changes of the thoracic spine with mild disc space narrowing and endplate Schmorl's nodes most notably at T8-9, T9-10, T10-11. No pneumothorax, no pleural effusion, no pericardial effusion, no focal consolidation. Lower Neck: No enlarged lymph nodes. Thyroid: No thyroid nodules which require sonographic follow up, per consensus guidelines. Axillae: No enlarged lymph nodes. Chest Wall: Unremarkable. Heart: Heart size is normal for patient body habitus. Thoracic Vessels: The aorta and pulmonary arteries demonstrate normal size. Mediastinum and Donna: No enlarged lymph nodes. Esophagus: No wall thickening. No hiatal hernia. Upper Abdomen: Visualized upper abdomen solid organs and bowel loops appear normal. Image quality: Diagnostic. IMPRESSION: Low lung volumes with mild bibasilar subsegmental atelectasis. Mild bilateral perihilar and lower lobe peribronchial thickening with mild lower lobe ground-glass opacities as discussed above. Dictated by: Jos Peck M.D. on 07/31/2024 at 9:40 Approved by: Jos Peck M.D. on 07/31/2024 at 10:07
== END ==
PROVIDERS: Family Provider Registered Nurse Diabetes Educator; PCP Family Medicine; Referring Provider Student in an Organized Health Care Education/Training Program; Visit Provider Student in an Organized Health Care Education/Training Program
DX: J98.11 Atelectasis (principal); R07.9 Chest pain, unspecified; R05.9 Cough, unspecified; R06.02 Shortness of breath
CPT/HCPCS: 71250

== ENCOUNTER → 2024-08-07 10:42 | Outpatient (CLI) | payer MEDICARE, MEDICAID, SELFPAY ==
[2024-03-23 10:21] VITALS: BMI 31.3
[2024-08-07 11:34] LABS: Influenza A - CEPHEID Flu A NEGATIVE (NEGATIVE); Influenza B - CEPHEID Flu B NEGATIVE (NEGATIVE); Respiratory Syncytial Virus Negative (Negative)
[2024-08-07 11:35] LABS: COVID-19 CEPHEID 4-PLEX PCR Negative (Negative)
== END ==
PROVIDERS: Family Provider Registered Nurse Diabetes Educator; PCP Family Medicine; Visit Provider Family Medicine
DX: J18.9 Pneumonia, unspecified organism (principal); R50.9 Fever, unspecified; J02.9 Acute pharyngitis, unspecified; R52 Pain, unspecified
CPT/HCPCS: 0241U

== ENCOUNTER → 2024-08-07 10:52 | Outpatient (CLI) | payer MEDICARE, MEDICAID, SELFPAY ==
[2024-03-23 10:21] VITALS: BMI 31.3
--- NOTE | 2024-08-07 10:54 | DI.RAD.S_ITS ---
PROCEDURE: XR CHEST 2V INDICATIONS: Pneumonia, cough TECHNIQUE: 2 views of the chest were acquired. COMPARISON: [facility], CR, XR CHEST 1V, 07/27/2024, 12:48. FINDINGS: Heart, mediastinum and pulmonary vascular: Heart is normal in size and configuration. Mediastinum is unremarkable. Pulmonary vascular is normal. Lungs: Clear Pleural spaces: Normal-no effusions or pneumothorax. Bones and soft tissues: Normal IMPRESSION: Normal chest. Dictated by: Nikos Olsen M.D. on 08/10/2024 at 8:47 Approved by: Nikos Olsen M.D. on 08/10/2024 at 8:48
== END ==
PROVIDERS: Family Provider Registered Nurse Diabetes Educator; PCP Family Medicine; Referring Provider Family Medicine; Visit Provider Family Medicine
DX: J18.9 Pneumonia, unspecified organism (principal); R05.9 Cough, unspecified; J02.9 Acute pharyngitis, unspecified; R52 Pain, unspecified
CPT/HCPCS: 0241U; 71046

== ENCOUNTER → 2024-08-25 11:07 | Outpatient (CLI) | payer MEDICARE, MEDICAID, SELFPAY ==
[2024-03-23 10:21] VITALS: BMI 31.3
--- NOTE | 2024-08-25 13:10 | ST.SWALLOW ---
Visit Care Team Role Provider Type Radha Acevedo MD Primary Care Provider Physician Specialty: Family Practice TAPER MACHINE Address[address] [place] [place], [address] Email: [email or web address] Family Provider Advanced Nurse Anesthetist Specialty: Medical Address: [address] [place] [address], [address] Email: 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 She was referred for MBS by Jos Hemphill PA-C at [facility]. Pt reported that she will choke a times with medications being regurgitated . Foods that are difficult for the pt to swallow include peanut butter sandwiches, breads, Argentine fries, etc. Pt reports that medications also get stuck. She denied any difficulty with swallowing liquids Pt has a PMH that includes GERD. In October 2023, pt had endoscopy and colonoscopy that were unremarkable with the exception of a small polyp. She was advised by to follow up with GI specialist for GERD control . Subjective Observations Pt was seated in the fluoroscopy chair with directions and procedures described for her. She indicated she understood and agreed to proceed. Patient Positioning Position View Lat-A/P Imaging Lateral View Textures Administered Trials Presented Thin Liquid via Spoon (IDDSI 0 ),Thin Liquid via Cup (IDDSI 0 ),Extremely Thick Liquid via Spoon (IDDSI 4),Regular (IDDSI 7) Barium Tablet Yes The IDDSI Framework Protocol: IDDSI.1 Oral Impairment Source: The Modified Barium Swallow Impairment Profile (MBSImP??) Lip Closure No labial escape Tongue Control During Bolus Hold Cohesive bolus between tongue to palatal seal Bolus Preparation/Mastication Timely & efficient chewing & mashing Bolus Transport/Lingual Motion Brisk tongue motion Oral Residue Complete oral clearance,Trace residue lining oral structures Location Tongue Initiation of Pharyngeal Swallow Bolus head at posterior laryngeal surface of epiglottis Additional Oral Impairment Observations *OME and DKS were observed to be WNL. *Dentition natural and in good hygiene *Mastication observed with rotary chew pattern. *Good bolus formation, control and AP transition. Oral phase of swallow WNL Pharyngeal Impairment Source: The Modified Barium Swallow Impairment Profile (MBSImP??) Soft Palate Elevation No bolus between soft palate & pharyngeal wall Laryngeal Elevation Comp.sup.move.thyroid cart.w/ comp.approx.arytenoids to epiglot petiole Anterior Hyoid Excursion Complete anterior movement Epiglottic Movement Complete inversion Laryngeal Vestibular Closure Complete; no air/contrast in laryngeal vestibule Pharyngeal Stripping Wave Present - complete Pharyngoesophageal Segment Opening Complete distention & complete duration; no obstruction of flow Tongue Base Retraction Trace column of contrast/air betwn tongue base & post. pharyngeal wall Pharyngeal Residue Complete pharyngeal clearance Additional Pharyngeal Impairment Pharyngeal phase of swallow Observations WNL A/P View Textures Administered Trials Presented Thin Liquid via Cup (IDDSI 0), Regular (IDDSI 7) The IDDSI Framework Protocol: IDDSI.1 A/P View Observations Pharyngeal Contraction Complete Esophageal Clearance Upright Position Esophageal retention Additional A-P Observations *Thin barium trial observed to clear the esophagus as expected *Calibrated barium tablet observed to stop near sternum with pt reporting the tablet being stuck. With additional water, the tablet move and slowed near the LES, then passed into the stomach. Pt reported the tablet as still stuck. With additional water, the pt reported that the tablet was no longer stuck. Esophageal phase of swallow WNL GI referral recommended for further assessment re: GERD Clinical Impressions Dysphagia Type WNL Findings Oral. pharyngeal and esophageal phases of swallow observed to be WNL Patient Appropriate for Therapy No Recommendations Diet Comments No diet changes recommended Aspiration Precautions Recommended Precautions Alternate Liquids/Solids, Frequent Rest Periods,Small Bites/Sips Additional Precautions Reviewed above precautions with pt who indicated she understood Treatment Plan Recommended Referrals Primary Care Physician,GI Consult
== END ==
LOC: RAD 11:08
PROVIDERS: Family Provider Registered Nurse Diabetes Educator; PCP Family Medicine; Referring Provider Physician Assistant; Visit Provider Physician Assistant
DX: R13.10 Dysphagia, unspecified (principal)
CPT/HCPCS: 74230; 92611

== ENCOUNTER → 2024-09-14 11:37 | Outpatient (CLI) | payer MEDICARE, MEDICAID, SELFPAY ==
[2024-03-23 10:21] VITALS: BMI 31.3
[2024-09-14 13:17] LABS: Alanine Aminotransferase 24 IU/L (<35); Albumin 4.1 g/dL (3.5-5.0); Albumin Globulin Ratio 1.3 (1.0-2.8); Alkaline Phosphatase 72 U/L (38-126); Aspartate Aminotransferase 22 IU/L (14-36); BUN Creatinine Ratio 23.8 (6-22); Bilirubin Total 0.5 mg/dL (0.2-1.3); Blood Urea Nitrogen 10 mg/dL (7-17); Calcium 9.3 mg/dL (8.4-10.2); Carbon Dioxide 26 mmol/L (22-32); Chloride 103 mmol/L (98-107); Estimated Glomerular Filt Rate > 60 mL/min (>60); Globulin 3.1 g/dL (1.7-4.1); Glucose 81 mg/dL (70-100); HEMOLYSIS < 15 (0-50); Potassium 4.2 mmol/L (3.4-5.1); Sodium 137 mmol/L (137-145); Total Protein 7.2 g/dL (6.3-8.2)
[2024-09-14 13:33] LABS: Prolactin 82.7 ng/mL (3.0-18.6)
== END ==
LOC: LAB 11:39
PROVIDERS: Family Provider Registered Nurse Diabetes Educator; PCP Family Medicine; Referring Provider Internal Medicine Endocrinology, Diabetes & Metabolism; Visit Provider Internal Medicine Endocrinology, Diabetes & Metabolism
DX: E22.1 Hyperprolactinemia (principal)
CPT/HCPCS: 36415; 80053; 84146

== ENCOUNTER → 2024-10-10 11:06 | Outpatient (CLI) | payer MEDICARE, MEDICAID, SELFPAY ==
[2024-03-23 10:21] VITALS: BMI 31.3
== END ==
PROVIDERS: Family Provider Registered Nurse Diabetes Educator; PCP Family Medicine; Visit Provider Physician Assistant Medical
DX: J02.9 Acute pharyngitis, unspecified (principal)
CPT/HCPCS: 87070

== ENCOUNTER → 2024-10-20 12:11 | Outpatient (CLI) | payer MEDICARE, MEDICAID, SELFPAY ==
[2024-03-23 10:21] VITALS: BMI 31.3
--- NOTE | 2024-10-20 12:15 | DI.RAD.S_ITS ---
PROCEDURE: XR ANKLE LT MIN 3V INDICATIONS: Ankle pain TECHNIQUE: 3 views of the ankle were acquired. COMPARISON: [facility], CR, XR ANKLE LT MIN 3V, 10/30/2021, 16:10. FINDINGS: Bones: No fractures or dislocations. Ankle mortise is normally aligned. No suspicious bony lesions. Soft tissues: No tibiotalar joint effusion. Achilles tendon appears normal. IMPRESSION: No acute bony abnormality or significant effusion. Dictated by: Julio Chaudhry M.D. on 10/20/2024 at 13:42 Approved by: Julio Chaudhry M.D. on 10/20/2024 at 13:43
--- NOTE | 2024-10-20 12:15 | DI.RAD.S_ITS ---
PROCEDURE: XR ANKLE RT MIN 3V INDICATIONS: bilateral ankle pain TECHNIQUE: 3 views of the ankle were acquired. COMPARISON: [facility], CR, XR ANKLE LT MIN 3V, 10/20/2024, 12:29. FINDINGS: Bones: No fractures or dislocations. Ankle mortise is normally aligned. No suspicious bony lesions. Soft tissues: No tibiotalar joint effusion. Achilles tendon appears normal. IMPRESSION: No acute bony abnormality or significant effusion. Dictated by: Julio Chaudhry M.D. on 10/20/2024 at 13:43 Approved by: Julio Chaudhry M.D. on 10/20/2024 at 13:44
== END ==
PROVIDERS: Family Provider Registered Nurse Diabetes Educator; PCP Family Medicine; Referring Provider Family Medicine; Visit Provider Family Medicine
DX: M25.571 Pain in right ankle and joints of right foot (principal); M25.572 Pain in left ankle and joints of left foot
CPT/HCPCS: 73610

== ENCOUNTER 2024-11-14 14:12 | Emergency (ER) | payer MEDICARE, MEDICAID, SELFPAY ==
[2024-03-23 10:21] VITALS: BMI 31.3
[2024-11-14] VITALS (7 sets, daily range): BP systolic 148–187; BP diastolic 77–102; PULSE 106–128; RESP 22–32; TEMP 36.9–37; O2SAT 97–98; BMI 43.3
--- NOTE | 2024-11-14 14:34 | DI.RAD.S_ITS ---
PROCEDURE: XR CHEST 1V INDICATIONS: Eval for pneumonia TECHNIQUE: One view of the chest was acquired. COMPARISON: [facility], CR, XR CHEST 2V, 08/07/2024, 10:05. [facility], CR, XR CHEST 1V, 07/27/2024, 12:48. FINDINGS: Surgical changes and devices: None. Lungs and pleura: Low lung volumes. No dense airspace disease or pleural effusions. Mediastinum: Normal heart size, unchanged Bones and chest wall: Unremarkable IMPRESSION: No dense airspace disease or pleural effusions. Low lung volumes on single view radiograph. Dictated by: Aristeo Steward M.D. on 11/14/2024 at 14:41 Approved by: Aristeo Steward M.D. on 11/14/2024 at 14:43
--- NOTE | 2024-11-14 14:44 | EKG_ITS ---
[address] [address] Test Date: 2024-11-14 Pat Name: Ruth Zimmer Department: [facility] Room: Gender: Female Principal Clerk: FLORIN : 2000 Requested By: Order Number: [id number] Reading MD: Terry Roberto Measurements Intervals [place] Rate: 115 P: 17 [place]: 146 QRS: 12 QRSD: 80 T: 54 QT: 346 QTc: 478 Interpretive Statements Sinus tachycardia Cannot rule out Anterior infarct , age undetermined Electronically Signed On 11-14-2024 17:07:57 PST by Terry Roberto
[2024-11-14 14:46] LABS: Add Manual Diff / Slide Review NO; Basophils Absolute Auto 0 /uL (0-100); Basophils Percent Auto 0.4 % (0-2); Eosinophils Absolute Auto 200 /uL (0-450); Eosinophils Percent Auto 1.9 % (2-4); Hematocrit 41.7 % (36-46); Hemoglobin 14.1 g/dL (12.0-16.0); Lymphocytes Absolute Auto 2400 /uL (1100-4500); Lymphocytes Percent Auto 26.7 % (25-40); Mean Corpuscular HGB Conc 33.9 % (30-36); Mean Corpuscular Hemoglobin 28.4 PG (26-34); Mean Corpuscular Volume 83.7 fL (80-100); Monocytes Absolute Auto 600 /uL (0-900); Monocytes Percent Auto 6.4 % (3-14); Neutrophils Absolute Auto 5800 /uL (1500-7000); Neutrophils Percent Auto 64.6 % (50-75); Platelet Count 255 X10^3/uL (150-400); Red Blood Cell Count 4.98 X10^6/uL (4.0-5.2); Red Cell Distribution Width 13.8 % (11.6-14.8)
[2024-11-14 14:55] LABS: Alanine Aminotransferase 29 IU/L (<35); Albumin 4.3 g/dL (3.5-5.0); Albumin Globulin Ratio 1.2 (1.0-2.8); Alkaline Phosphatase 65 U/L (38-126); Aspartate Aminotransferase 27 IU/L (14-36); BUN Creatinine Ratio 22.4 (6-22); Bilirubin Total 0.4 mg/dL (0.2-1.3); Blood Urea Nitrogen 11 mg/dL (7-17); Calcium 8.9 mg/dL (8.4-10.2); Carbon Dioxide 24 mmol/L (22-32); Chloride 105 mmol/L (98-107); Estimated Glomerular Filt Rate > 60 mL/min (>60); Globulin 3.5 g/dL (1.7-4.1); Glucose 101 mg/dL (70-100); HEMOLYSIS < 15 (0-50); Lactate (Lactic Acid) 1.2 mmol/L (0.7-2.1); Lipase 64 U/L (23-300); Potassium 3.9 mmol/L (3.4-5.1); Sodium 139 mmol/L (137-145); Total Protein 7.8 g/dL (6.3-8.2)
[2024-11-14 15:39] LABS: Appearance Urine UA CLOUDY; Bilirubin Urine UA 1+ (NEGATIVE); Color Urine UA RED; Glucose Urine UA NEGATIVE (Negative); Ketones Urine UA NEGATIVE (NEGATIVE); Leukocyte Esterase Urine UA 1+ (NEGATIVE); Nitrite Urine UA POSITIVE (Negative); Occult Blood Urine UA 3+ (Negative); Protein Urine UA 2+ (Negative); Urobilinogen Urine UA 0.2 E.U./dL (0.2)
[2024-11-14 15:49] LABS: pH Urine UA 5.5 (4.5-8.0)
[2024-11-14 15:50] LABS: Amorphous Sediment Urine 2+; Bacteria Urine Few (2-10); Culture Indicated Urine Specimen Cultured; RBC Urine 5-10/HPF (0-5/HPF); Squamous Epithelial Cell Urine 5-10 /HPF (0-5/HPF); Urine Volume 10mL (spun); WBC Urine 5-10/HPF (0-5/HPF)
[2024-11-14 15:52] LABS: Ictotest Urine Positive (Negative)
[2024-11-14 15:56] LABS: Influenza A - CEPHEID Flu A NEGATIVE (NEGATIVE); Influenza B - CEPHEID Flu B NEGATIVE (NEGATIVE); Respiratory Syncytial Virus Negative (Negative)
[2024-11-14 16:15] LABS: COVID-19 CEPHEID 4-PLEX PCR Negative (Negative)
--- NOTE | 2024-11-14 16:47 | PC.NURSE ---
Pt is c/o worsening chest pain and difficulty breathing. 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 vitals done. remains tachy at 117 which is baseline for visit today. afebrile. Dr Nevarez made aware
--- NOTE | 2024-11-14 16:51 | EKG_ITS ---
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
--- NOTE | 2024-11-14 17:04 | ED_ITS ---
HPI - General Adult General Chief complaint: Shortness of Breath/Dyspnea Stated complaint: chest pain, poss pneumonia Time Seen by Provider: 11/14/24 16:58 Source: patient Mode of arrival: Ambulatory History of Present Illness HPI narrative: Patient was a 24-year-old female who is here for evaluation of 2 weeks of diarrhea, nausea, shortness of breath, fatigue. She states that this feels similar to when she was had pneumonia in the past. He was also had a cough but has been nonproductive. Has had subjective fevers. No skin changes. No known sick contacts. No recent travel. Has not tried anything for symptoms prior to arrival. Related Data Home Medications Medication Instructions Recorded Confirmed melatonin 10 mg tablet 10 mg PO BEDTIME 02/01/22 10/20/24 Previous Rx's Medication Instructions Recorded tretinoin 0.025 % topical cream 1 applic topical BEDTIME #20 grams 08/01/23 (Retin-A) loratadine 10 mg tablet 10 mg PO DAILY PRN allergy 10/10/23 symptoms #90 tabs ketoconazole 2 % shampoo 1 applic topical .2-3XW #240 mL 04/09/24 ondansetron 4 mg disintegrating 4 mg PO Q8H PRN nausea #30 tabs 05/18/24 tablet omeprazole 20 mg capsule,delayed 20 mg PO BID #60 caps 07/20/24 release prazosin 5 mg capsule 5 mg PO BEDTIME #60 caps 07/22/24 pregabalin 225 mg capsule 225 mg PO BID #60 caps 07/31/24 albuterol sulfate 90 mcg/actuation 2 puff inhalation Q4-6H PRN 08/07/24 aerosol inhaler shortness of breath or wheezing #8.5 grams aripiprazole 5 mg tablet 15 mg (3 x 5 mg) PO DAILY #90 tabs 08/24/24 meloxicam 15 mg tablet 15 mg PO DAILY #90 tabs 09/14/24 quetiapine 50 mg tablet 50 mg PO BID #60 tabs 10/05/24 quetiapine 100 mg tablet 300 mg (3 x 100 mg) PO BEDTIME #90 10/12/24 tabs paliperidone palmitate 234 mg/1.5 234 mg (1.5 mL) IM QMONTH #1.5 mL 10/13/24 mL intramuscular syringe lidocaine 5 % topical ointment 1 applic topical BID PRN pain #30 10/20/24 grams hydroxyzine HCl 25 mg tablet 25 mg PO 3XD for anxiety #90 tabs 10/28/24 prazosin 1 mg capsule 2 mg (2 x 1 mg) PO BEDTIME #60 caps 11/09/24 nitrofurantoin 100 mg PO BID 5 days #10 caps 11/14/24 monohydrate/macrocrystals 100 mg capsule (Macrobid) Allergies Allergy/AdvReac Type Severity Reaction Status Date / Time sulfamethoxazole Allergy Mild MAKES Verified 10/20/24 11:14 [From ] THROAT BURN trimethoprim [From ] Allergy Mild MAKES Verified 10/20/24 11:14 THROAT BURN amoxicillin Allergy Unknown ITCHING Verified 10/20/24 11:14 Review of Systems Review of Systems ROS Unobtainable: All systems reviewed & are unremarkable except as noted in HPI and below Patient History Medical History Low back pain Right foot pain Behavioral disorder in pediatric patient Homicidal ideation Suicidal ideations Stress due to family tension Impaired speech articulation Social anxiety disorder of childhood Fibromyalgia Allergic rhinitis Other low back pain Dehydration UTI (urinary tract infection) Otitis media Chronic headache Chronic ankle pain, bilateral Lumbosacral pain, chronic Panic anxiety syndrome Obesity History of epistaxis GERD (gastroesophageal reflux disease) Posttraumatic stress disorder Depression Family History Mother Curvature of spine Narrowing of intervertebral disc space Facet hypertrophy of lumbar region Multilevel degenerative disc disease Fibromyalgia Scoliosis Arthritis Nerve damage of left foot Nerve damage Social History marital status: unmarried,single number of children: 0 household members: family occupational status: unemployed Smoking Status: Never smoker alcohol intake: never caffeine: Yes Smoking Status: Never smoker alcohol intake frequency: holidays/special occasions only Exam Initial Vital Signs Initial Vital Signs: Vital Signs Temperature 98.6 F 11/14/24 14:15 Pulse Rate 121 H 11/14/24 14:15 Respiratory Rate 32 H 11/14/24 14:15 Blood Pressure 187/101 H 11/14/24 14:15 Pulse Oximetry 98 11/14/24 14:15 Oxygen Delivery Method Room Air 11/14/24 14:15 Const General: cooperative, comfortable and No ill appearing HENMT Head: normal to inspection and normocephalic Resp Effort & Inspection: normal respiratory effort Auscultation: clear to auscultation bilaterally Cardio Rate: tachycardic Rhythm: regular rhythm GI Inspection: normal to inspection Neuro General: patient alert and patient awake Extrem General: capillary refill normal Course Orders Ordered: ED Orders 11/14/24 14:34 XR chest 1V Stat EKG-12 Lead Stat 11/14/24 14:35 Complete Blood Count AUTO DIFF Stat Comprehensive Metabolic Panel Stat Lactate (Lactic Acid) Stat Lipase Stat 11/14/24 14:50 Covid-19 + FLU A/B + RSV - PCR Stat 11/14/24 15:26 Ictotest Urine Stat Urinalysis and Microscopic Stat Urine Culture Stat 11/14/24 16:46 EKG-12 Lead Stat Vital Signs Vital signs: Vital Signs - 8 hr 11/14/24 14:15 11/14/24 15:26 11/14/24 15:26 Temperature 98.6 F Pulse Rate 121 H 114 H Respiratory Rate 32 H Blood Pressure 187/101 H 176/90 H Pulse Oximetry 98 98 Oxygen Delivery Method Room Air 11/14/24 15:30 11/14/24 15:30 11/14/24 16:00 Temperature 98.4 F Pulse Rate 117 H 108 H Respiratory Rate Blood Pressure 157/81 H Pulse Oximetry 97 97 Oxygen Delivery Method 11/14/24 16:00 11/14/24 16:30 11/14/24 16:30 Temperature Pulse Rate 106 H Respiratory Rate Blood Pressure 148/77 H 153/102 H Pulse Oximetry 98 Oxygen Delivery Method 11/14/24 16:56 11/14/24 16:56 11/14/24 17:00 Temperature Pulse Rate 118 H 128 H Respiratory Rate 22 Blood Pressure 161/97 H Pulse Oximetry 97 98 Oxygen Delivery Method 11/14/24 17:00 Temperature Pulse Rate Respiratory Rate Blood Pressure 150/89 H Pulse Oximetry Oxygen Delivery Method Medical Decision Making Medical Records Medical records reviewed: Yes I reviewed the patient's medical records. Lab Data Lab results reviewed: Yes I reviewed the patient's lab results. 11/14/24 14:35 11/14/24 14:35 Labs: Lab Results 11/14/24 11/14/24 11/14/24 Range/Units 14:35 14:50 15:26 WBC 9.0 (4.5-11.0) X10^3/uL RBC 4.98 (4.0-5.2) X10^6/uL Hgb 14.1 (12.0-16.0) g/dL Hct 41.7 (36-46) % MCV 83.7 (80-100) fL MCH 28.4 (26-34) PG MCHC 33.9 (30-36) % RDW 13.8 (11.6-14.8) % Plt Count 255 (150-400) X10^3/uL Neut % (Auto) 64.6 (50-75) % Lymph % (Auto) 26.7 (25-40) % [place] % (Auto) 6.4 (3-14) % Eos % (Auto) 1.9 L (2-4) % Baso % (Auto) 0.4 (0-2) % Neut # (Auto) 5800 (4586-8606) /uL Lymph # (Auto) 2400 (6619-3482) /uL [place] # (Auto) 600 (0-900) /uL Eos # (Auto) 200 (0-450) /uL Baso # (Auto) 0 (0-100) /uL Sodium 139 (137-145) mmol/L Potassium 3.9 (3.4-5.1) mmol/L Chloride 105 (98-107) mmol/L Carbon Dioxide 24 (22-32) mmol/L BUN 11 (7-17) mg/dL Creatinine 0.49 L (0.52-1.04) mg/dL Estimated GFR > 60 (>60) mL/min BUN/Creatinine Ratio 22.4 H (6-22) Glucose 101 H (70-100) mg/dL Lactate 1.2 (0.7-2.1) mmol/L Calcium 8.9 (8.4-10.2) mg/dL Total Bilirubin 0.4 (0.2-1.3) mg/dL AST 27 (14-36) IU/L ALT 29 (<35) IU/L Alkaline Phosphatase 65 (38-126) U/L Total Protein 7.8 (6.3-8.2) g/dL Albumin 4.3 (3.5-5.0) g/dL Globulin 3.5 (1.7-4.1) g/dL Albumin/Globulin Ratio 1.2 (1.0-2.8) Lipase 64 (23-300) U/L Urine Color Red Urine Appearance Cloudy Urine pH 5.5 (4.5-8.0) Ur Specific [place] 1.020 (1.000-1.035) Urine Protein 2+ H (Negative) Urine Glucose (UA) Negative (Negative) g/dL Urine Ketones Negative (NEGATIVE) Urine Occult Blood 3+ H (Negative) Urine Nitrate Positive H (Negative) Urine Bilirubin 1+ H (NEGATIVE) Ur Bilirubin Confirm Positive H (Negative) Urine Urobilinogen 0.2 (0.2) E.U./dL Ur Leukocyte Esterase 1+ H (NEGATIVE) Urine RBC 5-10/hpf H (0-5/HPF) Urine WBC 5-10/hpf H (0-5/HPF) Ur Squamous Epith Cells 5-10 /hpf H (0-5/HPF) Amorphous Sediment 2+ Urine Bacteria Few (2-10) H (None) Ur Culture Indicated? Specimen cultured Vol Urine Centrifuged 10ml (spun) SARS-CoV-2 (PCR) Negative (Negative) Influenza A (RT-PCR) Flu a negative (NEGATIVE) Influenza B (RT-PCR) Flu b negative (NEGATIVE) RSV (PCR) Negative (Negative) Imaging Data Chest x-ray: Radiologist's Impression: PROCEDURE: XR CHEST 1V INDICATIONS: Eval for pneumonia TECHNIQUE: One view of the chest was acquired. COMPARISON: [facility], XR CHEST 2V, 08/07/2024, 10:05. [facility], XR CHEST 1V, 07/27/2024, 12:48. FINDINGS: Surgical changes and devices: None. Lungs and pleura: Low lung volumes. No dense airspace disease or pleural effusions. Mediastinum: Normal heart size, unchanged Bones and chest wall: Unremarkable IMPRESSION: No dense airspace disease or pleural effusions. Low lung volumes on single view radiograph. ECG Data Attestation: I personally reviewed and interpreted this ECG as follows: Interpretation: Sinus tachycardia Ventricular rate 115 Normal axis Normal QRS Normal QTC No ST T wave changes Repeat EKG Sinus tachycardia Ventricular rate 111 Normal QRS Normal QTC No ST T wave changes MDM Narrative Medical decision making narrative: Patient was tachycardic but does not have leukocytosis. Her urinalysis is nitrite positive and she was having some urinary frequency but no dysuria. No back pain. Chest x-ray is not consistent with pneumonia. She was not hypoxic. Two weeks of symptoms. Based on her presentation today I have low suspicion that this is a pulmonary embolism based on her history. She has no lower extremity edema. Will place on antibiotics secondary to the nitrite positive urine. We discussed the chest x-ray findings. We discussed return precautions and follow-up instructions. Patient expressed understanding and agreement. Discharge Plan Departure Patient Disposition: Home Clinical Impression: Urinary tract infection Instructions: DI for Urinary Tract Infection (UTI) Activity Restrictions/Additional Instructions: You can take Tylenol and/or ibuprofen for fevers or body aches. Start taking the antibiotics as directed. There was a urine culture pending at the time of your discharge and if we need to change antibiotics based on this we will contact you and let you know. Contact your primary doctor for follow-up. Return to the emergency department for new symptoms. Prescriptions: New nitrofurantoin monohyd/m-cryst [Macrobid] 100 mg capsule 100 mg PO BID 5 Days Qty: 10 0RF Rx Instructions: must administer with a meal/food No Action lidocaine 5 % ointment 1 applic topical BID PRN (Reason: pain) Qty: 30 0RF omeprazole 20 mg capsule,delayed release(DR/EC) 20 mg PO BID Qty: 60 1RF albuterol sulfate 90 mcg/actuation HFA aerosol inhaler 2 puff inhalation Q4-6H PRN (Reason: shortness of breath or wheezing) Qty: 8.5 0RF melatonin 10 mg tablet 10 mg PO BEDTIME ondansetron 4 mg tablet,disintegrating 4 mg PO Q8H PRN (Reason: nausea) Qty: 30 0RF aripiprazole 5 mg tablet 15 mg PO DAILY Qty: 90 3RF prazosin 5 mg capsule 5 mg PO BEDTIME Qty: 60 5RF Hold Instructions: Dose change. loratadine 10 mg tablet 10 mg PO DAILY PRN (Reason: allergy symptoms) Qty: 90 3RF ketoconazole 2 % shampoo 1 applic TOP .2-3XW Qty: 240 3RF Rx Instructions: Apply to scalp 2-3 times weekly for dandruff pregabalin 225 mg capsule 225 mg PO BID Qty: 60 2RF meloxicam 15 mg tablet 15 mg PO DAILY Qty: 90 3RF quetiapine 50 mg tablet 50 mg PO BID Qty: 60 1RF Rx Instructions: Take 1 tab in afternoon and 1 tab in the evening with 300mg tab. quetiapine 100 mg tablet 300 mg PO BEDTIME Qty: 90 3RF paliperidone palmitate 234 mg/1.5 mL syringe 234 mg IM QMONTH Qty: 1.5 5RF hydroxyzine HCl 25 mg tablet 25 mg PO 3XD Qty: 90 0RF prazosin 1 mg capsule 2 mg PO BEDTIME Qty: 60 3RF Rx Instructions: Take 2 caps with 5mg cap for a total of 7mg nightly. tretinoin [Retin-A] 0.025 % cream 1 applic topical BEDTIME Qty: 20 3RF Referrals: Radha Acevedo MD [Primary Care Provider] - Stand Alone Forms: Patient Portal/API/Survey
== END 2024-11-14 17:23 | disposition home or self-care (01) ==
PROVIDERS: Emergency Provider Emergency Medicine; Family Provider Registered Nurse Diabetes Educator; PCP Family Medicine
DX: N39.0 Urinary tract infection, site not specified (principal); R06.02 Shortness of breath; R00.0 Tachycardia, unspecified; R19.7 Diarrhea, unspecified; R11.0 Nausea; R05.9 Cough, unspecified
CPT/HCPCS: 0241U; 36415; 71045; 80053; 81001; 83605; 83690; 85025; 87086; 93005; 99284

== ENCOUNTER → 2024-11-20 08:06 | Outpatient (CLI) | payer MEDICARE, MEDICAID, SELFPAY ==
[2024-03-23 10:21] VITALS: BMI 31.3
--- NOTE | 2024-11-20 18:16 | DI.NM.S_ITS ---
DATE OF SERVICE: 11/20/2024 EXERCISE TREADMILL STRESS TEST PROCEDURE PERFORMED: Exercise treadmill stress test without imaging. ORDERING PROVIDER: Radha Acevedo M.D. INDICATIONS: The patient is a 24-year-old morbidly obese female with chronic, atypical chest discomfort. FINDINGS: 1. The patient was able to exercise for only 2 minutes 34 seconds on a standard [place]o protocol suggesting markedly reduced exercise capacity with an FOSTER of +79%, achieving only 4.6 METS. 2. She had an accelerated heart rate response with a resting heart rate of 115 to 130 bpm, increasing to 160 bpm after 1 minute of exercise and achieving a maximum heart rate of 175 bpm (88% of her predicted maximum). She had a borderline hypertensive blood pressure response with a resting blood pressure of 140/80, increasing to a maximum of 190/100. 3. She reported chronic chest discomfort prior to exercise that worsened slightly with stress. She had moderate exertional dyspnea and stopped because of fatigue. 4. Her resting ECG shows sinus tachycardia at 115 to [address] segments. There are no significant ST-segment shifts with stress. There are no other arrhythmias or any ectopy. IMPRESSION: 1. Normal exercise treadmill stress test for ischemia. 2. Markedly reduced exercise capacity with resting sinus tachycardia and an accentuated heart rate response to exercise, possibly reflecting markedly reduced cardiovascular fitness, but alternative explanations for her sinus tachycardia should be considered. There were no other arrhythmias. She had a borderline hypertensive blood pressure response to exercise. 3. She had persistent chest discomfort prior to stress that became slightly accentuated, but likely non-anginal chest pain. Annie Zimmerasia - JAELYN/eduardo/MANNY doc#: [id number]/job#: [id number] dd: 11/20/2024 17:56:00 dt: 11/20/2024 18:03:00 DICTATING MD/COPIES TO: Joe Yao MD; Radha Acevedo M.D. COPIES MNE: ROSEY;
== END ==
PROVIDERS: Family Provider Registered Nurse Diabetes Educator; PCP Family Medicine; Referring Provider Family Medicine; Visit Provider Family Medicine
DX: R07.9 Chest pain, unspecified (principal); R00.0 Tachycardia, unspecified
CPT/HCPCS: 93017

== ENCOUNTER → 2024-11-21 09:40 | Outpatient (CLI) | payer MEDICARE, MEDICAID, SELFPAY ==
[2024-03-23 10:21] VITALS: BMI 31.3
--- NOTE | 2024-11-21 09:42 | DI.MRI.S_ITS ---
PROCEDURE: MR LUMBAR SPINE WO CON INDICATIONS: Right-sided lumbar radiculopathy TECHNIQUE: Noncontrast sagittal T1 spin echo and T2 fast echo, sagittal STIR, and T2 fast spin echo through the lumbar spine. In cases with scoliosis, additional coronal T2 fast spin echo may be performed. COMPARISON: None. FINDINGS: Image quality: Excellent. Alignment and Curvature: There is normal bony alignment. There is appearance of lumbarization of the 1st sacral vertebral body. For purposes of this exam, vertebral bodies are labeled 1 through 5. Bone Marrow: Marrow is of normal overall signal. No acute vertebral body compression fractures. Spinal Cord: Conus medullaris terminates at the L1-2 level. Visualized cord demonstrates normal signal and size. Paraspinous Soft Tissues: No paravertebral masses. Discs: [id number] desiccation is present L5-S1. T12-L1: No disc bulge, spinal stenosis or foraminal narrowing. L1-L2: Trace disc bulge, without spinal stenosis or foraminal narrowing. Facet and ligamentum flavum hypertrophy are present. L2-L3: Facet and ligamentum flavum hypertrophy as well as minimal epidural lipomatosis is present. L3-L4: Minimal disc bulge without spinal stenosis. No foraminal narrowing. Facet hypertrophy and minimal epidural lipomatosis. L4-L5: Minimal disc bulge without spinal stenosis or foraminal narrowing. Minimal facet hypertrophy. L5-S1: Mild disc bulge with large superimposed posterior central protrusion. There is compromise of the exiting nerve roots at this level. No spinal stenosis. Minimal bilateral foraminal narrowing. IMPRESSION: Disc bulge with prominent posterior central protrusion at L5-S1 with compromise of the exiting nerve roots. Dictated by: Anastasia Conner M.D. on 11/23/2024 at 14:14 Approved by: Anastasia Conner M.D. on 11/23/2024 at 14:27
== END ==
PROVIDERS: Family Provider Registered Nurse Diabetes Educator; PCP Family Medicine; Referring Provider Physical Medicine & Rehabilitation; Visit Provider Physical Medicine & Rehabilitation
DX: M47.26 Other spondylosis with radiculopathy, lumbar region (principal); M51.17 Intervertebral disc disorders with radiculopathy, lumbosacral region
CPT/HCPCS: 72148

== ENCOUNTER → 2024-11-25 15:04 | Outpatient (CLI) | payer MEDICARE, MEDICAID, SELFPAY ==
[2024-03-23 10:21] VITALS: BMI 31.3
== END ==
PROVIDERS: Family Provider Registered Nurse Diabetes Educator; PCP Family Medicine; Referring Provider Psychiatry & Neurology Psychiatry; Visit Provider Psychiatry & Neurology Psychiatry
DX: Z79.899 Other long term (current) drug therapy (principal)
CPT/HCPCS: 80299

== ENCOUNTER → 2024-11-27 11:37 | Outpatient (CLI) | payer MEDICARE, MEDICAID, SELFPAY ==
[2024-03-23 10:21] VITALS: BMI 31.3
[2024-11-27 12:33] LABS: Alanine Aminotransferase 47 IU/L (<35); Albumin 4.5 g/dL (3.5-5.0); Albumin Globulin Ratio 1.4 (1.0-2.8); Alkaline Phosphatase 67 U/L (38-126); Aspartate Aminotransferase 34 IU/L (14-36); BUN Creatinine Ratio 30.2 (6-22); Bilirubin Total 0.4 mg/dL (0.2-1.3); Blood Urea Nitrogen 16 mg/dL (7-17); Calcium 9.7 mg/dL (8.4-10.2); Carbon Dioxide 26 mmol/L (22-32); Chloride 106 mmol/L (98-107); Estimated Glomerular Filt Rate > 60 mL/min (>60); Globulin 3.2 g/dL (1.7-4.1); Glucose 102 mg/dL (70-100); HEMOLYSIS < 15 (0-50); Sodium 141 mmol/L (137-145); Total Protein 7.7 g/dL (6.3-8.2)
[2024-11-27 12:48] LABS: Prolactin 77.3 ng/mL (3.0-18.6)
== END ==
PROVIDERS: Family Provider Registered Nurse Diabetes Educator; PCP Family Medicine; Referring Provider Internal Medicine Endocrinology, Diabetes & Metabolism; Visit Provider Internal Medicine Endocrinology, Diabetes & Metabolism
DX: E22.1 Hyperprolactinemia (principal)
CPT/HCPCS: 36415; 80053; 84146

== ENCOUNTER → 2024-11-30 08:04 | Outpatient (CLI) | payer MEDICARE, MEDICAID, SELFPAY ==
[2024-03-23 10:21] VITALS: BMI 31.3
--- NOTE | 2024-11-30 08:05 | DI.ECHO.S_ITS ---
[facility] : : [address] : : [place] : : [id number] : : Phone: [phone] Echocardiogram Report + + :Name: SIVAKUMAR TILLEY Study Date: 11/30/2024 Height: 68 in : :[facility] ReadingLocation: Weight: 291 lb : : Gender: Female BSA: 2.4 m2 : :: 2000 Age: 24 yrs BP: 135/93 mmHg: :Reason For Study: TACHYCARDIA : :Ordering Physician: BIRDIE, : :RAH Gates Performed By: Mitzi Jenkins : :Referring: RAH PACKER : + + Interpretation Summary 1) Normal left ventricular thickness, size, wall motion, and systolic function (EF 60-65%). 2) Normal right ventricular size and function. 3) No significant valvular abnormalities. 4) No prior Echo available for comparison. Procedure: A two-dimensional transthoracic echocardiogram with color flow and Doppler was performed. The study quality was technically adequate. There is no prior echocardiogram noted for this patient. The patient was in sinus rhythm with heart rates between 86-100 bpm during the exam. Left Ventricle: The left ventricle is normal in size. There is mild concentric left ventricular hypertrophy. The ejection fraction is estimated to be 60-65%. Left ventricular systolic function appears normal without focal wall motion abnormalities. Diastolic parameters suggest probable normal left ventricular diastolic function and normal filling pressures. Right Ventricle: The right ventricle is normal in size and function. Atria: The left atrial size is normal. Right atrial size is normal. There is no Doppler evidence for an interatrial shunt. Mitral Valve: The mitral valve leaflets appear to open well. There is trace mitral regurgitation. Aortic Valve: The aortic valve is trileaflet. The aortic valve opens well. There is no aortic valve stenosis. No aortic regurgitation is present. Tricuspid Valve: The tricuspid valve leaflets are thin and pliable. No tricuspid regurgitation. Pulmonary artery pressures cannot be estimated because of the lack of a measurable TR jet velocity but the IVC suggests a CVP of around 3 mmHg. Pulmonic Valve: The pulmonic valve leaflets are thin and pliable; valve motion is normal. There is no pulmonic valvular regurgitation. Great Vessels: The aortic root is normal size. The dimensions of the ascending aorta are normal. The IVC is of normal diameter and collapses greater than 50% with a sniff. This suggests a low right atrial pressure of 3 mm Hg. Pericardium/ Pleura There is no pericardial effusion. There is no pleural effusion. MMode/2D Measurements & Calculations LVIDd: 4.0 cm LVOT diam: 2.0 cm LVIDs: 2.7 cm Ao root diam: 2.6 cm FS: 30.7 % asc Aorta Diam: 2.5 cm EPSS: 0.57 cm Ao Arch Diam (Prox Trans): 2.2 cm IVSd: 1.2 cm LVPWd: 1.2 cm LV owens. diameter/BSA (cm/m^2): 1.6 LV sys. diameter/BSA (cm/m^2): 1.1 LA A2 area: 17.3 cm2 RA long axis: 4.4 cm LA A4 area: 17.7 cm2 RA area: 11.2 cm2 LA length (vol): 5.0 cm RA vol: 24.0 ml LA vol: 52.2 ml RA : 10.0 ml/m2 LA vol index: 21.8 ml/m2 IVC diam: 2.0 cm RVD1 (basal): 2.7 cm TAPSE: 2.5 cm Doppler Measurements & Calculations Ao V2 max: 123.1 cm/sec LVOT Max Evan: 105.6 cm/sec Ao V2 mean: 87.7 cm/sec LV V1 max P.5 mmHg Ao max P.1 mmHg LV V1 VTI: 21.9 cm Ao mean P.5 mmHg PRESTON(I,D): 2.8 cm2 Ao V2 VTI: 24.4 cm PRESTON(V,D): 2.7 cm2 sev ratio: 0.90 PRESTON indexed to BSA (cm^2/m^2): 1.2 MV E max evan: 74.0 cm/sec PA V2 max: 108.2 cm/sec MV A max evan: 66.3 cm/sec PA V2 mean: 74.1 cm/sec MV E/A: 1.1 PA mean P.5 mmHg Med Peak E' Evan: 9.1 cm/sec PA pr(Accel): 22.5 mmHg E/E' med: 8.2 Lat Peak E' Evan: 13.9 cm/sec E/E' lat: 5.3 E/e' average: 6.8 MV dec time: 0.18 sec SV(LVOT): 68.7 ml Reading Physician:12:19 PM
== END ==
PROVIDERS: Family Provider Registered Nurse Diabetes Educator; PCP Family Medicine; Referring Provider Internal Medicine Endocrinology, Diabetes & Metabolism; Visit Provider Internal Medicine Endocrinology, Diabetes & Metabolism
DX: R07.9 Chest pain, unspecified (principal); R00.0 Tachycardia, unspecified; E22.1 Hyperprolactinemia
CPT/HCPCS: 93246; 93306

== ENCOUNTER → 2024-11-30 09:09 | Outpatient (CLI) | payer MEDICARE, MEDICAID, SELFPAY ==
[2024-03-23 10:21] VITALS: BMI 31.3
== END ==
PROVIDERS: Family Provider Registered Nurse Diabetes Educator; PCP Family Medicine; Referring Provider Family Medicine; Visit Provider Family Medicine
DX: R00.0 Tachycardia, unspecified (principal); R07.9 Chest pain, unspecified
CPT/HCPCS: 93246; 93248

== ENCOUNTER 2024-12-22 15:10 | Outpatient (CLI) | payer MEDICARE, MEDICAID, SELFPAY ==
[2024-12-01 16:04] VITALS: BMI 31.3
[2024-12-22] VITALS (9 sets, daily range): BP systolic 146–178; BP diastolic 81–110; PULSE 97–118; RESP 13–22; TEMP 36.2; O2SAT 96–100
--- NOTE | 2024-12-22 15:13 | DI.RAD.S_ITS ---
PROCEDURE: PAIN L INTERLAMINAR/CAUDAL INJ INDICATIONS: L5/S1 TL LENORA COMPARISON: None. FINDINGS/IMPRESSION: Fluoroscopic spot filming was performed to verify placement of spinal needles at the L5-S1 level(s), as labeled on the films. Appropriate location(s) of the needle tip(s) was confirmed by injection of iodinated contrast. Dictated by: Anastasia Conner M.D. on 12/23/2024 at 12:55 Approved by: Anastasia Conner M.D. on 12/23/2024 at 12:55
[2024-12-22] MEDS: MIDAZOLAM 2 MG/2 ML VIAL IV (16:31)
[2024-12-22] MEDS: BUPIVACAINE 0.25% (PF) VIAL 2 ML INJ (16:38)
[2024-12-22] MEDS: DEXAMETHASONE 10 MG/ML VIAL INJ (16:38)
[2024-12-22] MEDS: iopamidoL 15 ML VIAL 3 ML INJ (16:38)
[2024-12-22] MEDS: BETAMETHASONE 30 MG/5 ML MDV 12 MG INJ (16:39)
--- NOTE | 2024-12-22 16:50 | PM.PROC.IR.1 ---
Date/Time/Diagnoses Date of procedure: 12/22/24 Time of procedure: 16:50 Pre-procedure diagnosis: 1. HNP WITH RADICULAR FEATURES, 2. MULTILEVEL CENTRAL STENOSIS, Post-procedure diagnosis: same Procedure Notes Procedure: 1. 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 Physician: Joe English Total Fluoroscopy time (seconds): 10 Total sedation minutes: 15 Complications: none Procedure in detail & Post-procedure care: FINDINGS Multilevel Central Spinal Stenosis with Nerve Root Compression DESCRIPTION OF PROCEDURE Fluoroscopically guided, contrast-controlled L5/S1 translaminar epidural steroid injection. Following review of allergy and review of potential side effects and complications, including, but not necessarily limited to, infection, allergic reaction, local tissue breakdown, temporary as well as permanent nerve injury, paralysis, stroke and possible , the patient indicated that the patient understood and agreed to proceed. An informed consent document was signed by the patient, witnessed by a nurse, and placed in the patient's chart. Additionally, other treatment options including modalities, medications, and physical therapy were reviewed with the patient. After review of previous anaesthesic history and IV conscious sedation the patient was deemed safe to proceed with today?s procedure with IV conscious sedation as ASA class II designation. Safety time-out was performed to confirm patient ID, procedure to be performed and site of procedure. IV sedation was accomplished with a combination of 2mg of Versed administered by the RN after DO order, titrated to patient comfort during the course of the procedure while the patient remained responsive to all verbal commands. In the prone position, following sterile prep and drape of the lumbar region, the L5/S1 translaminar space was identified fluoroscopically. The skin was anesthetized via a 25-gauge, 1.5-inch needle with 1% lidocaine solution. At this point, a 22-gauge short bevel spinal needle was atraumatically introduced and advanced under fluoroscopic guidance into the region of the L5/S1 translaminar space. Depth was confirmed on lateral view. Radiological data, including multiple fluoroscopic views of the lumbar spine, reveal a spinal needle at the L5/S1 translaminar space. Lateral views then show placement of the needle in the epidural space. Subsequent views show contrast material flowing superiorly and inferiorly in the epidural space. No vascular or intrathecal uptake is observed. At this point, using loss of resistance technique with saline and air, the epidural space was entered. This was confirmed following negative aspiration with injection of approximately 1.5cc of Isovue 200, showing excellent epidural flow without vascular or intrathecal uptake. At this point, 1 cc of 1% lidocaine solution combined with 2cc or 10mg of dexamethasone and 6mg of betamethasone was injected without incident. The patent tolerated the procedure without signs of symptoms of complications prior to transfer to the recovery area for further monitoring. The patient was then transferred to the recovery area where they were observed for an appropriate period of time after the injection. The patient reported a VAS score of 7 prior to the procedure and a post-procedure VAS of 1. POST OP INSTRUCTIONS The patient was provided a Pain Log to continue to record their response to the target-specific procedure prior to follow-up visit with their referring physician. Additionally, specific post-injection care instructions and a contact number to our office were provided if concerns arise regarding possible complications associated with the procedure are suspected.
== END 2024-12-22 17:03 | disposition home or self-care (01) ==
LOC: RAD 15:11
PROVIDERS: Family Provider Registered Nurse Diabetes Educator; PCP Family Medicine; Referring Provider Physical Medicine & Rehabilitation; Visit Provider Physical Medicine & Rehabilitation
DX: M51.17 Intervertebral disc disorders with radiculopathy, lumbosacral region (principal); M48.07 Spinal stenosis, lumbosacral region
CPT/HCPCS: 62323; 99152; J0702; J1100; J2250; J3490

== ENCOUNTER → 2025-01-01 14:05 | Outpatient (CLI) | payer MEDICARE, MEDICAID, SELFPAY ==
[2024-12-01 16:04] VITALS: BMI 31.3
[2025-01-01 15:48] LABS: HCG Quantitative /Beta subunit < 2.39 mIU/mL
== END ==
PROVIDERS: Family Provider Registered Nurse Diabetes Educator; PCP Family Medicine; Referring Provider Family Medicine; Visit Provider Family Medicine
DX: Z32.00 Encounter for pregnancy test, result unknown (principal); N89.8 Other specified noninflammatory disorders of vagina
CPT/HCPCS: 36415; 84702; 87210; 87491; 87563; 87591

== ENCOUNTER → 2025-01-01 15:16 | Outpatient (CLI) | payer MEDICARE, MEDICAID, SELFPAY ==
[2024-12-01 16:04] VITALS: BMI 31.3
[2025-01-04 15:50] LABS: HIV 1 & 2 Ab/Ag 4th Gen Combo NEGATIVE (NEGATIVE); Hep C Virus Ab w/Reflex Quant NEGATIVE s/c (NEGATIVE)
[2025-01-05 04:36] LABS: RPR Screen Non Reactive (Non Reactive)
== END ==
PROVIDERS: Family Provider Registered Nurse Diabetes Educator; PCP Family Medicine; Referring Provider Family Medicine; Visit Provider Family Medicine
DX: Z72.51 High risk heterosexual behavior (principal); Z32.00 Encounter for pregnancy test, result unknown; N89.8 Other specified noninflammatory disorders of vagina
CPT/HCPCS: 36415; 84702; 86592; 86803; 87210; 87389; 87491; 87563; 87591

== ENCOUNTER → 2025-01-15 09:41 | Outpatient (CLI) | payer MEDICARE, MEDICAID, SELFPAY ==
[2024-12-01 16:04] VITALS: BMI 31.3
[2025-01-15 10:20] LABS: Alanine Aminotransferase 40 IU/L (<35); Albumin 4.1 g/dL (3.5-5.0); Albumin Globulin Ratio 1.5 (1.0-2.8); Alkaline Phosphatase 62 U/L (38-126); Aspartate Aminotransferase 28 IU/L (14-36); BUN Creatinine Ratio 16.1 (6-22); Bilirubin Total 0.4 mg/dL (0.2-1.3); Blood Urea Nitrogen 9 mg/dL (7-17); Carbon Dioxide 29 mmol/L (22-32); Chloride 104 mmol/L (98-107); Estimated Glomerular Filt Rate > 60 mL/min (>60); Globulin 2.8 g/dL (1.7-4.1); Glucose 94 mg/dL (70-100); HEMOLYSIS < 15 (0-50); Potassium 3.7 mmol/L (3.4-5.1); Sodium 141 mmol/L (137-145); Total Protein 6.9 g/dL (6.3-8.2)
[2025-01-15 10:37] LABS: Prolactin 81.5 ng/mL (3.0-18.6)
== END ==
PROVIDERS: Family Provider Registered Nurse Diabetes Educator; PCP Family Medicine; Referring Provider Internal Medicine Endocrinology, Diabetes & Metabolism; Visit Provider Internal Medicine Endocrinology, Diabetes & Metabolism
DX: E23.6 Other disorders of pituitary gland (principal); R79.89 Other specified abnormal findings of blood chemistry
CPT/HCPCS: 36415; 80053; 84146

== ENCOUNTER → 2025-01-19 11:34 | Outpatient (CLI) | payer MEDICARE, MEDICAID, SELFPAY ==
[2024-12-01 16:04] VITALS: BMI 31.3
== END ==
PROVIDERS: Family Provider Registered Nurse Diabetes Educator; PCP Family Medicine; Visit Provider Family Medicine
DX: R35.0 Frequency of micturition (principal)
CPT/HCPCS: 87086

== ENCOUNTER → 2025-01-19 12:39 | Outpatient (CLI) | payer MEDICARE, MEDICAID, SELFPAY ==
[2024-12-01 16:04] VITALS: BMI 31.3
[2025-01-19 13:03] LABS: Add Manual Diff / Slide Review NO; Basophils Absolute Auto 0 /uL (0-100); Basophils Percent Auto 0.5 % (0-2); Eosinophils Absolute Auto 200 /uL (0-450); Eosinophils Percent Auto 1.9 % (2-4); Hematocrit 40.9 % (36-46); Hemoglobin 13.9 g/dL (12.0-16.0); Lymphocytes Absolute Auto 3200 /uL (1100-4500); Lymphocytes Percent Auto 32.5 % (25-40); Mean Corpuscular HGB Conc 33.9 % (30-36); Mean Corpuscular Hemoglobin 28.1 PG (26-34); Mean Corpuscular Volume 83.1 fL (80-100); Monocytes Absolute Auto 700 /uL (0-900); Neutrophils Absolute Auto 5800 /uL (1500-7000); Neutrophils Percent Auto 58.1 % (50-75); Platelet Count 286 X10^3/uL (150-400); Red Blood Cell Count 4.92 X10^6/uL (4.0-5.2); Red Cell Distribution Width 13.7 % (11.6-14.8); White Blood Cell Count 9.9 X10^3/uL (4.5-11.0)
[2025-01-19 13:16] LABS: HEMOLYSIS < 15 (0-50); Iron 61 ug/dL (37-170)
[2025-01-19 13:32] LABS: Percent Iron Saturation 18 % (15-50); Total Iron Binding Capacity 331 ug/dL (265-497); Transferrin 262 mg/dL (206-381)
[2025-01-19 13:54] LABS: TSH w/ Reflex to FT4 2.91 uIU/mL (0.47-4.68)
[2025-01-19 14:02] LABS: Ferritin 18 ng/mL (6-137)
== END ==
PROVIDERS: Family Provider Registered Nurse Diabetes Educator; PCP Family Medicine; Referring Provider Family Medicine; Visit Provider Family Medicine
DX: R79.89 Other specified abnormal findings of blood chemistry (principal); R53.83 Other fatigue; F31.81 Bipolar II disorder
CPT/HCPCS: 36415; 82728; 83540; 83550; 84443; 85025; 87086

== ENCOUNTER → 2025-01-27 08:07 | Outpatient (CLI) | payer MEDICARE, MEDICAID, SELFPAY ==
[2024-12-01 16:04] VITALS: BMI 31.3
--- NOTE | 2025-01-27 08:08 | DI.US.S_ITS ---
PROCEDURE: US ABDOMEN LIMITED INDICATIONS: Elevated LFT's TECHNIQUE: Real-time scanning was performed of the abdominal and retroperitoneal organs, with image documentation. COMPARISON: None. FINDINGS: Liver: Liver is normal in size and homogeneous in echotexture. Liver is diffusely echogenic. Gallbladder: Gallbladder is surgically absent. Biliary ducts: Intrahepatic bile ducts are non-dilated. Extrahepatic bile duct caliber measures 6.0 mm. Normal is 6-7 mm or less in diameter, or 10 mm or less post-cholecystectomy. Pancreas: Visualized portions of the pancreas are sonographically normal. Body and tail of pancreas obscured by bowel gas and cannot be evaluated. Miscellaneous: No free abdominal fluid. IMPRESSION: Echogenic liver. Finding typically represents fatty infiltration; however, finding is nonspecific and correlation with clinical and laboratory findings is recommended to exclude other etiologies including hepatic cirrhosis. Cholecystectomy. Dictated by: Ellyn Bonilla MD, PhD on 01/27/2025 at 11:03 Approved by: Ellyn Bonilla MD, PhD on 01/27/2025 at 11:04
== END ==
PROVIDERS: Family Provider Registered Nurse Diabetes Educator; PCP Family Medicine; Referring Provider Family Medicine; Visit Provider Family Medicine
DX: R79.89 Other specified abnormal findings of blood chemistry (principal); Z90.49 Acquired absence of other specified parts of digestive tract; R93.2 Abnormal findings on diagnostic imaging of liver and biliary tract
CPT/HCPCS: 76705

== ENCOUNTER → 2025-02-04 09:05 | Outpatient (CLI) | payer MEDICARE, MEDICAID, SELFPAY ==
[2024-12-01 16:04] VITALS: BMI 31.3
== END ==
PROVIDERS: Family Provider Registered Nurse Diabetes Educator; PCP Family Medicine; Visit Provider Physician Assistant
DX: J02.9 Acute pharyngitis, unspecified (principal)
CPT/HCPCS: 87070

== ENCOUNTER → 2025-02-11 09:20 | Outpatient (CLI) | payer MEDICARE, MEDICAID, SELFPAY ==
[2024-12-01 16:04] VITALS: BMI 31.3
[2025-02-11 12:59] LABS: COVID-19 CEPHEID 4-PLEX PCR Negative (Negative); Influenza A - CEPHEID Flu A NEGATIVE (NEGATIVE); Influenza B - CEPHEID Flu B NEGATIVE (NEGATIVE); Respiratory Syncytial Virus Negative (Negative)
== END ==
LOC: LAB 09:21
PROVIDERS: Family Provider Registered Nurse Diabetes Educator; PCP Family Medicine; Visit Provider Family Medicine
DX: R05.9 Cough, unspecified (principal); R52 Pain, unspecified
CPT/HCPCS: 0241U

== ENCOUNTER → 2025-03-02 14:47 | Outpatient (CLI) | payer MEDICARE, MEDICAID, SELFPAY ==
[2025-02-17 14:11] VITALS: BMI 31.3
[2025-03-02 16:08] LABS: Alanine Aminotransferase 28 IU/L (<35); Albumin 4.4 g/dL (3.5-5.0); Albumin Globulin Ratio 1.3 (1.0-2.8); Alkaline Phosphatase 67 U/L (38-126); Aspartate Aminotransferase 26 IU/L (14-36); BUN Creatinine Ratio 19.4 (6-22); Bilirubin Total 0.6 mg/dL (0.2-1.3); Blood Urea Nitrogen 12 mg/dL (7-17); Calcium 8.9 mg/dL (8.4-10.2); Carbon Dioxide 30 mmol/L (22-32); Chloride 103 mmol/L (98-107); Estimated Glomerular Filt Rate > 60 mL/min (>60); Globulin 3.3 g/dL (1.7-4.1); Glucose 93 mg/dL (70-99); HEMOLYSIS < 15 (0-50); Potassium 4.2 mmol/L (3.4-5.1); Sodium 139 mmol/L (137-145); Total Protein 7.7 g/dL (6.3-8.2)
[2025-03-02 16:19] LABS: Prolactin 24.8 ng/mL (3.0-18.6)
== END ==
PROVIDERS: Family Provider Registered Nurse Diabetes Educator; PCP Family Medicine; Referring Provider Internal Medicine Endocrinology, Diabetes & Metabolism; Visit Provider Internal Medicine Endocrinology, Diabetes & Metabolism
DX: E22.1 Hyperprolactinemia (principal); R79.89 Other specified abnormal findings of blood chemistry
CPT/HCPCS: 36415; 80053; 84146

== ENCOUNTER → 2025-03-25 12:36 | Outpatient (CLI) | payer MEDICARE, MEDICAID, SELFPAY ==
[2025-02-17 14:11] VITALS: BMI 31.3
[2025-03-25 13:46] LABS: Iron 70 ug/dL (37-170)
[2025-03-25 13:57] LABS: Total Iron Binding Capacity 325 ug/dL (265-497)
[2025-03-25 14:24] LABS: Ferritin 20 ng/mL (6-137)
[2025-03-25 14:53] LABS: Vitamin D 25 Hydroxy (D3) 15.9 ng/mL (30.0-100.0)
[2025-03-25 15:01] LABS: Folate 4.4 ng/mL (2.76-20.0); Vitamin B12 317 pg/mL (239-931)
== END ==
PROVIDERS: Family Provider Registered Nurse Diabetes Educator; PCP Family Medicine; Referring Provider Registered Nurse; Visit Provider Registered Nurse
DX: R53.1 Weakness (principal); M54.81 Occipital neuralgia; M79.7 Fibromyalgia; R51.9 Headache, unspecified; R42 Dizziness and giddiness; R53.82 Chronic fatigue, unspecified
CPT/HCPCS: 36415; 82306; 82607; 82728; 82746; 83540; 83550

== ENCOUNTER → 2025-04-22 15:21 | Outpatient (CLI) | payer MEDICARE, MEDICAID, SELFPAY ==
[2025-04-19 14:05] VITALS: BMI 31.3
[2025-04-22 18:43] LABS: Urine N gonorrhoeae NOT DETECTED
[2025-04-22 19:28] LABS: Urine Chlamydia NOT DETECTED
== END ==
PROVIDERS: Family Provider Registered Nurse Diabetes Educator; PCP Family Medicine; Visit Provider Family Medicine
DX: J02.9 Acute pharyngitis, unspecified (principal); K13.70 Unspecified lesions of oral mucosa; Z72.51 High risk heterosexual behavior
CPT/HCPCS: 87491; 87591

== ENCOUNTER → 2025-04-22 15:46 | Outpatient (CLI) | payer MEDICARE, MEDICAID, SELFPAY ==
[2025-04-19 14:05] VITALS: BMI 31.3
[2025-04-22 17:56] LABS: Prolactin 28.3 ng/mL (3.0-18.6)
[2025-04-22 18:23] LABS: HIV 1 & 2 Ab/Ag 4th Gen Combo NEGATIVE (NEGATIVE); Hep C Virus Ab w/Reflex Quant NEGATIVE s/c (NEGATIVE)
[2025-04-24 04:10] LABS: HSV Type 1 AB, IgG Non Reactive (Non Reactive)
== END ==
LOC: LAB 15:47
PROVIDERS: Family Provider Registered Nurse Diabetes Educator; PCP Family Medicine; Referring Provider Family Medicine; Visit Provider Psychiatry & Neurology Psychiatry
DX: E22.1 Hyperprolactinemia (principal); N64.3 Galactorrhea not associated with childbirth; K13.70 Unspecified lesions of oral mucosa; Z79.899 Other long term (current) drug therapy; Z72.51 High risk heterosexual behavior
CPT/HCPCS: 36415; 84146; 86592; 86695; 86803; 87389; 87491; 87591

== ENCOUNTER → 2025-04-28 09:18 | Outpatient (CLI) | payer MEDICARE, MEDICAID, SELFPAY ==
[2025-04-19 14:05] VITALS: BMI 31.3
[2025-04-28 10:31] LABS: Hemoglobin A1C% w Est Avg Glu 4.8 % (4.0-6.0)
[2025-04-28 10:36] LABS: Glucose 93 mg/dL (70-99)
== END ==
PROVIDERS: Family Provider Registered Nurse Diabetes Educator; PCP Family Medicine; Referring Provider Psychiatry & Neurology Psychiatry; Visit Provider Psychiatry & Neurology Psychiatry
DX: Z79.899 Other long term (current) drug therapy (principal); Z13.1 Encounter for screening for diabetes mellitus
CPT/HCPCS: 36415; 82947; 83036

== ENCOUNTER → 2025-05-18 10:34 | Outpatient (CLI) | payer MEDICARE, MEDICAID, SELFPAY ==
[2025-04-19 14:05] VITALS: BMI 31.3
== END ==
PROVIDERS: Family Provider Registered Nurse Diabetes Educator; PCP Family Medicine; Referring Provider Psychiatry & Neurology Psychiatry; Visit Provider Psychiatry & Neurology Psychiatry
DX: Z79.899 Other long term (current) drug therapy (principal)
CPT/HCPCS: 81025; 99214

== ENCOUNTER → 2025-05-21 08:04 | Outpatient (CLI) | payer MEDICARE, MEDICAID, SELFPAY ==
[2025-04-19 14:05] VITALS: BMI 31.3
[2025-05-21 09:39] LABS: HCG Quantitative /Beta subunit < 2.39 mIU/mL
== END ==
PROVIDERS: Family Provider Registered Nurse Diabetes Educator; PCP Family Medicine; Referring Provider Psychiatry & Neurology Psychiatry; Visit Provider Family Medicine
DX: R79.89 Other specified abnormal findings of blood chemistry (principal); R35.0 Frequency of micturition; B37.31 Acute candidiasis of vulva and vagina; B96.89 Other specified bacterial agents as the cause of diseases classified elsewhere; N76.0 Acute vaginitis
CPT/HCPCS: 36415; 84702

== ENCOUNTER 2025-05-24 13:25 | Emergency (ER) | payer MEDICARE, MEDICAID, SELFPAY ==
[2025-04-19 14:05] VITALS: BMI 31.3
[2025-05-24 14:01] VITALS: BP 146/92; PULSE 89; RESP 16; TEMP 36.1; O2SAT 98; BMI 42.5
[2025-05-24 14:29] LABS: Culture Indicated Urine Specimen Cultured
[2025-05-24 21:15] VITALS: BP 150/72
[2025-05-24 21:30] VITALS: BP 121/70
--- NOTE | 2025-05-24 21:35 | ED.FEMALEGU ---
HPI - Female Genitourinary General Chief complaint: Vaginal Bleeding Stated complaint: hcg +, n/v & vag bleeding Time Seen by Provider: 05/24/25 18:49 Source: patient Mode of arrival: EMS History of Present Illness HPI Narrative: 24-year-old female past medical history anxiety, and depression, has had both a positive and negative test came in with vaginal bleeding started today abdominal cramps but no nausea vomiting diarrhea or urinary complaints. Patient last menstrual period was 04/24/25 and is not currently on any control at this time. Patient denies fever, chills, cough, body aches, sore throat. Other than what is stated 14 point review of systems negative. Related Data Home Medications ?Medication ?Instructions ?Recorded ?Confirmed melatonin 10 mg tablet 10 mg PO BEDTIME 02/01/22 05/07/25 naratriptan 2.5 mg tablet See Rx Instructions PO .COMPLEX 01/01/25 05/07/25 duloxetine 30 mg capsule,delayed 30 mg PO BID 04/01/25 05/07/25 release hydroxyzine HCl 25 mg tablet mg PO 04/01/25 05/07/25 tizanidine 2 mg tablet mg PO 04/01/25 05/07/25 Previous Rx's ?Medication ?Instructions ?Recorded ketoconazole 2 % shampoo 1 applic topical .2-3XW #240 mL 04/09/24 ondansetron 4 mg disintegrating 4 mg PO Q8H PRN nausea #30 tabs 05/18/24 tablet meloxicam 15 mg tablet 15 mg PO DAILY #90 tabs 09/14/24 lidocaine 5 % topical ointment 1 applic topical BID PRN pain #30 10/20/24 grams omeprazole 20 mg capsule,delayed 20 mg PO BID #60 caps 12/14/24 release prazosin 5 mg capsule 5 mg PO BEDTIME #30 caps 01/15/25 albuterol sulfate 90 mcg/actuation 2 puff inhalation Q4-6H PRN 01/19/25 aerosol inhaler shortness of breath or wheezing #8.5 grams inhalational spacing device #1 ea 01/22/25 ([facility] spacer) propranolol 20 mg tablet 20 mg PO TID #90 tabs 01/28/25 pregabalin 225 mg capsule 225 mg PO BID #60 caps 02/02/25 buspirone 10 mg tablet 20 mg (2 x 10 mg) PO BID #120 tabs 03/16/25 prazosin 1 mg capsule 3 mg (3 x 1 mg) PO BEDTIME #90 caps 03/16/25 ferrous sulfate 325 mg (65 mg 325 mg PO DAILY #30 tabs 04/13/25 iron) tablet (FeroSul) lactulose 10 gram/15 mL oral 10 g (15 mL) PO DAILY #237 mL 04/13/25 solution aripiprazole 400 mg intramuscular 400 mg IM Q28D #1 ea 04/28/25 suspension,extended release (Abilify Maintena) dexamethasone 0.5 mg/5 mL oral 0.5 mg (5 mL) PO QID #237 mL 05/07/25 elixir quetiapine 100 mg tablet 300 mg (3 x 100 mg) PO BEDTIME #90 05/17/25 tabs Allergies Allergy/AdvReac Type Severity Reaction Status Date / Time sulfamethoxazole (From AdvReac Mild MAKES Verified 05/24/25 14:01 ) THROAT BURN trimethoprim (From ) AdvReac Mild MAKES Verified 05/24/25 14:01 THROAT BURN amoxicillin AdvReac Unknown ITCHING Verified 05/24/25 14:01 Review of Systems Review of Systems ROS Unobtainable: All systems reviewed & are unremarkable except as noted in HPI and below Patient History Medical History (Updated 05/24/25 @ 21:47 by Nikos Yi DO) Facet arthropathy, lumbar Lumbar radiculopathy Low back pain Right foot pain Behavioral disorder in pediatric patient Homicidal ideation Suicidal ideations Stress due to family tension Impaired speech articulation Social anxiety disorder of childhood Fibromyalgia Allergic rhinitis Other low back pain Dehydration UTI (urinary tract infection) Otitis media Chronic headache Chronic ankle pain, bilateral Lumbosacral pain, chronic Panic anxiety syndrome Obesity History of epistaxis GERD (gastroesophageal reflux disease) Posttraumatic stress disorder Depression Family History Mother Curvature of spine Narrowing of intervertebral disc space Facet hypertrophy of lumbar region Multilevel degenerative disc disease Fibromyalgia Scoliosis Arthritis Nerve damage of left foot Nerve damage tobacco type: vaping Exam Narrative Exam Narrative: GENERAL: [24] year old patient appears stated age. Well-developed patient, in mild distress. HEAD: Atraumatic. Normocephalic. EYES: Pupils equal round and reactive. Extraocular motions intact. No scleral icterus. No injection or drainage. NECK: Trachea midline. Non tender CARDIOVASCULAR: Regular rate and rhythm without murmurs, gallops, or rubs. RESPIRATORY: Clear to auscultation. Breath sounds equal bilaterally. No wheezes, rales, or rhonchi. GASTROINTESTINAL: Abdomen soft, non-tender, nondistended. EXTREMITIES: No edema or joint tenderness. BACK: Nontender without deformity or crepitance. No flank tenderness. NEURO: AOx3. SKIN: No rash or erythema of visible areas Initial Vital Signs Initial Vital Signs: Vital Signs Temperature 97.0 F L 05/24/25 14:01 Pulse Rate 89 05/24/25 14:01 Respiratory Rate 16 05/24/25 14:01 Blood Pressure 146/92 H 05/24/25 14:01 Pulse Oximetry 98 05/24/25 14:01 Oxygen Delivery Method Room Air 05/24/25 14:01 Course Orders Ordered: ED Orders 05/24/25 14:13 Urine Culture Stat Urine Microscopic Stat Vital Signs Vital signs: Vital Signs - 8 hr 05/24/25 14:01 Temperature 97.0 F L Pulse Rate 89 Respiratory Rate 16 Blood Pressure 146/92 H Pulse Oximetry 98 Oxygen Delivery Method Room Air MDM - Female Genitourinary Lab Data Labs: Lab Results 05/24/25 Range/Units 14:13 Urine RBC >100/hpf H (0-5/HPF) Urine WBC 1-5/hpf (0-5/HPF) Ur Squamous Epith Cells 1-5 /hpf (0-5/HPF) Urine Bacteria None seen (None) Ur Culture Indicated? Specimen cultured Vol Urine Centrifuged 10ml (spun) Point of Care Testing Test Results Negative Urine Dip Bedside Urine Glucose Negative Bedside Urine Bilirubin + 1 Bedside Urine Ketone +/- 5 Urine Specific [place] 1.015 Bedside Urine Occult Blood +++ Bedside Urine pH 6.0 Bedside Urine Protein ++ 100 Bedside Urine Urobilinogen +/- 1mg Bedside Urine Nitrite - Negative Bedside Urine Leukocytes ++ 125 Esterase MDM Narrative Medical decision making narrative: Vital signs,nurse triage note, medication list, previous ER visits and all imaging studies reviewed. UA reviewed negative . Differential diagnosis menstrual cramps, UTI, threatened miscarriage. Return with new or worsening symptoms Discharge Plan Departure Patient Disposition: Home Clinical Impression: Moderate cramps with menses Instructions: DI for Vaginal Bleeding Activity Restrictions/Additional Instructions: Return with new or worsening symptoms. Take Tylenol and/or ibuprofen for pain control. Keep hydrated. Follow up PCP in 1-2 weeks if no improvement in symptoms. Prescriptions: No Action lidocaine 5 % ointment 1 applic topical BID PRN (Reason: pain) Qty: 30 0RF naratriptan 2.5 mg tablet See Rx Instructions PO .COMPLEX Rx Instructions: take 1 tab at onset of headache; if no relief may repeat 1 tab after at least 4 hrs; max = 2 tabs/24 hrs PO lactulose 10 gram/15 mL solution 10 g PO DAILY Qty: 237 0RF ferrous sulfate [FeroSul] 325 mg (65 mg iron) tablet 325 mg PO DAILY Qty: 30 3RF dexamethasone 0.5 mg/5 mL elixir 0.5 mg PO QID Qty: 237 0RF melatonin 10 mg tablet 10 mg PO BEDTIME ondansetron 4 mg tablet,disintegrating 4 mg PO Q8H PRN (Reason: nausea) Qty: 30 0RF buspirone 10 mg tablet 20 mg PO BID Qty: 120 3RF prazosin 1 mg capsule 3 mg PO BEDTIME Qty: 90 3RF Rx Instructions: Take 3 caps with 5mg cap for a total of 8 mg nightly. propranolol 20 mg tablet 20 mg PO TID Qty: 90 3RF hydroxyzine HCl 25 mg tablet PO duloxetine 30 mg capsule,delayed release(DR/EC) 30 mg PO BID tizanidine 2 mg tablet PO ketoconazole 2 % shampoo 1 applic TOP .2-3XW Qty: 240 3RF Rx Instructions: Apply to scalp 2-3 times weekly for dandruff meloxicam 15 mg tablet 15 mg PO DAILY Qty: 90 3RF omeprazole 20 mg capsule,delayed release(DR/EC) 20 mg PO BID Qty: 60 3RF prazosin 5 mg capsule 5 mg PO BEDTIME Qty: 30 2RF albuterol sulfate 90 mcg/actuation HFA aerosol inhaler 2 puff inhalation Q4-6H PRN (Reason: shortness of breath or wheezing) Qty: 8.5 0RF (DME) [facility] Spacer See Rx Instructions .Route Qty: 1 0RF Rx Instructions: Use as directed with inhaler pregabalin 225 mg capsule 225 mg PO BID Qty: 60 2RF Abilify Maintena 400 mg suspension,extended rel recon 400 mg IM Q28D Qty: 1 2RF Rx Instructions: To be injected by nurse at [facility]. quetiapine 100 mg tablet 300 mg PO BEDTIME Qty: 90 2RF Referrals: Radha Acevedo MD [Primary Care Provider, Family Practice] Stand Alone Forms: Patient Portal/API
[2025-05-24 22:00] VITALS: BP 116/73; RESP 18; O2SAT 97
== END 2025-05-24 22:07 | disposition home or self-care (01) ==
PROVIDERS: Family Medicine; Emergency Provider Family Medicine; Family Provider Registered Nurse Diabetes Educator; PCP Family Medicine
DX: R10.9 Unspecified abdominal pain (principal)
CPT/HCPCS: 81003; 81015; 81025; 87086; 99282

== ENCOUNTER → 2025-05-27 14:04 | Outpatient (CLI) | payer MEDICARE, MEDICAID, SELFPAY ==
[2025-04-19 14:05] VITALS: BMI 31.3
[2025-05-27 15:35] LABS: HCG Quantitative /Beta subunit < 2.39 mIU/mL
== END ==
PROVIDERS: Family Provider Registered Nurse Diabetes Educator; PCP Family Medicine; Referring Provider Family Medicine; Visit Provider Family Medicine
DX: Z32.00 Encounter for pregnancy test, result unknown (principal)
CPT/HCPCS: 36415; 84702

== ENCOUNTER → 2025-06-14 07:45 | Outpatient (CLI) | payer MEDICARE, MEDICAID, SELFPAY ==
[2025-04-19 14:05] VITALS: BMI 31.3
--- NOTE | 2025-06-14 07:46 | DI.US.S_ITS ---
PROCEDURE: US PELVIC COMPLETE INDICATIONS: Dyspareunia TECHNIQUE: Real-time scanning was performed of the pelvic organs, with image documentation. Additional endovaginal scanning was necessary due to incomplete visualization of the adnexal and endometrial structures by transabdominal scanning. COMPARISON: [facility], , US PELVIC COMPLETE, 12/10/2019, 11:22. FINDINGS: Uterus: 7.2 x 3.7 x 5.9 cm. Endometrium measures 7 mm. Unremarkable appearance of the cervix on ultrasound. Ovaries: Right ovary measures 8 cc. Left ovary measures 4 cc. Other: Likely physiologic degree of small free fluid is seen. IMPRESSION: No acute or significant sonographic abnormality in the pelvis by ultrasound Dictated by: Aristeo Steward M.D. on 06/14/2025 at 8:13 Approved by: Aristeo Steward M.D. on 06/14/2025 at 8:14
== END ==
LOC: US 07:46
PROVIDERS: Family Provider Family Medicine; PCP Family Medicine; Referring Provider Family Medicine; Visit Provider Family Medicine
DX: N94.6 Dysmenorrhea, unspecified (principal)
CPT/HCPCS: 76830; 76856

== ENCOUNTER → 2025-06-22 14:05 | Outpatient (CLI) | payer MEDICARE, MEDICAID, SELFPAY ==
[2025-04-19 14:05] VITALS: BMI 31.3
[2025-06-22 15:26] LABS: Appearance Urine UA SL CLOUDY; Bilirubin Urine UA NEGATIVE (NEGATIVE); Color Urine UA RED; Glucose Urine UA NEGATIVE (Negative); Ketones Urine UA TRACE (NEGATIVE); Leukocyte Esterase Urine UA TRACE (NEGATIVE); Nitrite Urine UA NEGATIVE (Negative); Occult Blood Urine UA 3+ (Negative); Protein Urine UA 2+ (Negative); Specific Gravity Urine UA 1.015 (1.000-1.035); Urobilinogen Urine UA 2.0 E.U./dL (0.2)
[2025-06-22 15:27] LABS: pH Urine UA 5.5 (4.5-8.0)
[2025-06-22 15:28] LABS: Culture Indicated Urine Cult Not Indicated
== END ==
PROVIDERS: Family Provider Family Medicine; PCP Family Medicine; Visit Provider Obstetrics & Gynecology
DX: N89.8 Other specified noninflammatory disorders of vagina (principal); R35.0 Frequency of micturition; Z72.51 High risk heterosexual behavior
CPT/HCPCS: 81001

== ENCOUNTER 2025-07-15 10:06 | Emergency (ER) | payer MEDICARE, MEDICAID, SELFPAY ==
[2025-04-19 14:05] VITALS: BMI 31.3
[2025-07-15 10:07] VITALS: BP 138/74; PULSE 92; RESP 14; O2SAT 97; BMI 41.0
[2025-07-15 10:22] VITALS: TEMP 36.6
[2025-07-15 10:30] LABS: Ictotest Urine Negative (Negative)
[2025-07-15 10:33] LABS: Culture Indicated Urine Specimen Cultured
--- NOTE | 2025-07-15 12:45 | ED.FEMALEGU ---
HPI - Female Genitourinary <Alexandria Mark PA-C - Last Filed: 07/15/25 15:21> General Chief complaint: Urogenital-Female Stated complaint: Vaginal Pain, UTI Time Seen by Provider: 07/15/25 10:13 Source: patient Mode of arrival: Wheelchair History of Present Illness HPI Narrative: Ms. Zimmer is a pleasant 24-year-old female with a past medical history of bipolar disorder, GERD, irritable bowel disease, hypertension who presents to the emergency department for concern of UTI x2 days. Patient states she is having burning with urination, pain with wiping the vagina, and urinary frequency over the last 2 days. Reports that she did have a recent new sexual partner and recently took plan B. she denies any abnormal vaginal discharge or bleeding. No abdominal pain, nausea, vomiting, diarrhea, fevers, chills but does report some constipation and occasional suprapubic/mid low back pain with urinating. No flank pain or hematuria. Related Data Home Medications ?Medication ?Instructions ?Recorded ?Confirmed melatonin 10 mg tablet 10 mg PO BEDTIME 02/01/22 06/10/25 naratriptan 2.5 mg tablet See Rx Instructions PO .COMPLEX 01/01/25 06/10/25 duloxetine 30 mg capsule,delayed 30 mg PO BID 04/01/25 06/10/25 release tizanidine 2 mg tablet mg PO 04/01/25 06/10/25 Previous Rx's ?Medication ?Instructions ?Recorded ketoconazole 2 % shampoo 1 applic topical .2-3XW #240 mL 04/09/24 ondansetron 4 mg disintegrating 4 mg PO Q8H PRN nausea #30 tabs 05/18/24 tablet lidocaine 5 % topical ointment 1 applic topical BID PRN pain #30 10/20/24 grams albuterol sulfate 90 mcg/actuation 2 puff inhalation Q4-6H PRN 01/19/25 aerosol inhaler shortness of breath or wheezing #8.5 grams inhalational spacing device #1 ea 01/22/25 (Fantasma Ornelas [facility] spacer) propranolol 20 mg tablet 20 mg PO TID #90 tabs 01/28/25 ferrous sulfate 325 mg (65 mg 325 mg PO DAILY #30 tabs 04/13/25 iron) tablet (FeroSul) lactulose 10 gram/15 mL oral 10 g (15 mL) PO DAILY #237 mL 04/13/25 solution dexamethasone 0.5 mg/5 mL oral 0.5 mg (5 mL) PO QID #237 mL 05/07/25 elixir cefdinir 300 mg capsule 300 mg PO BID #20 caps 06/10/25 clotrimazole 1 % topical cream 1 applic topical TID #45 grams 06/10/25 ketoconazole 2 % shampoo 1 applic topical 3XW #120 mL 06/10/25 prazosin 5 mg capsule 10 mg (2 x 5 mg) PO BEDTIME #60 06/10/25 caps norethindrone (contraceptive) 0.35 0.35 mg PO DAILY #84 tabs 06/22/25 mg tablet buspirone 30 mg tablet 30 mg PO BID #180 tabs 06/24/25 meloxicam 15 mg tablet 15 mg PO DAILY #90 tabs 06/24/25 omeprazole 20 mg capsule,delayed 20 mg PO BID #60 caps 06/24/25 release quetiapine 200 mg tablet 400 mg (2 x 200 mg) PO BEDTIME 06/24/25 #180 tabs aripiprazole 400 mg intramuscular 400 mg IM Q28D #1 ea 06/29/25 suspension,extended release (Abiliftom Maintena) pregabalin 225 mg capsule 225 mg PO BID #60 caps 07/09/25 doxycycline hyclate 100 mg capsule 100 mg PO BID 7 days #14 caps 07/15/25 nitrofurantoin macrocrystal 100 mg 100 mg PO BID 5 days #10 caps 07/15/25 capsule phenazopyridine 200 mg tablet 200 mg PO TID PRN pain 6 doses #6 07/15/25 tabs Allergies Allergy/AdvReac Type Severity Reaction Status Date / Time sulfamethoxazole (From AdvReac Mild MAKES Verified 07/15/25 10:07 ) THROAT BURN trimethoprim (From ) AdvReac Mild MAKES Verified 07/15/25 10:07 THROAT BURN amoxicillin AdvReac Unknown ITCHING Verified 07/15/25 10:07 Review of Systems <Alexandria Mark PA-C - Last Filed: 07/15/25 15:21> Review of Systems ROS Unobtainable: All systems reviewed & are unremarkable except as noted in HPI and below Patient History <Alexandria Mark PA-C - Last Filed: 07/15/25 15:21> Medical History Facet arthropathy, lumbar Lumbar radiculopathy Low back pain Right foot pain Behavioral disorder in pediatric patient Homicidal ideation Suicidal ideations Stress due to family tension Impaired speech articulation Social anxiety disorder of childhood Fibromyalgia Allergic rhinitis Other low back pain Dehydration UTI (urinary tract infection) Otitis media Chronic headache Chronic ankle pain, bilateral Lumbosacral pain, chronic Panic anxiety syndrome Obesity History of epistaxis GERD (gastroesophageal reflux disease) Posttraumatic stress disorder Depression Family History Mother Curvature of spine Narrowing of intervertebral disc space Facet hypertrophy of lumbar region Multilevel degenerative disc disease Fibromyalgia Scoliosis Arthritis Nerve damage of left foot Nerve damage tobacco type: vaping Exam <Alexandria Mark PA-C - Last Filed: 07/15/25 15:21> Narrative Exam Narrative: GENERAL: 24 year old patient appears stated age. Well-developed patient, in no acute distress. HEAD: Atraumatic. Normocephalic. EYES: No scleral icterus. No injection or drainage. NECK: Trachea midline. Cervical ROM intact. CARDIOVASCULAR: Regular rate and rhythm. RESPIRATORY: ?Nonlabored respirations. ?Speaking in clear, full sentences. ?Clear to auscultation. Breath sounds equal bilaterally. No wheezes, rales, or rhonchi. ? GASTROINTESTINAL: Abdomen soft, non-tender, nondistended. Bs present. Pt declines pelvic, will self-swab. EXTREMITIES: No LE edema. BACK: No CVA tenderness BL. NEURO: AOx3. ?Clear speech. ?Moves all 4 extremities appropriately. SKIN: No rash or erythema of visible areas Initial Vital Signs Initial Vital Signs: Vital Signs Pulse Rate 92 H 07/15/25 10:07 Respiratory Rate 14 07/15/25 10:07 Blood Pressure 138/74 07/15/25 10:07 Pulse Oximetry 97 07/15/25 10:07 Oxygen Delivery Method Room Air 07/15/25 10:07 <Milton Mora MD - Last Filed: 07/16/25 08:34> Initial Vital Signs Initial Vital Signs: Vital Signs Pulse Rate 92 H 07/15/25 10:07 Respiratory Rate 14 07/15/25 10:07 Blood Pressure 138/74 07/15/25 10:07 Pulse Oximetry 97 07/15/25 10:07 Oxygen Delivery Method Room Air 07/15/25 10:07 Course <Alexandria Mark PA-C - Last Filed: 07/15/25 15:21> Orders Ordered: Discontinued Medications Ceftriaxone Sodium (Ceftriaxone 1,000 Mg Vial) 500 mg IM NOW ONE Stop: 07/15/25 12:49 Last Admin: 07/15/25 13:17 Dose: 500 mg Documented By: RB Ondansetron HCl (Ondansetron 4 Mg/2 Ml Inj) 4 mg IV NOW PRN PRN Reason: Nausea And Vomiting Ondansetron HCl (Ondansetron 4 Mg Odt) 4 mg PO NOW PRN PRN Reason: Nausea And Vomiting Last Admin: 07/15/25 13:18 Dose: 4 mg Documented By: RB Phenazopyridine HCl (Phenazopyridine 100 Mg Tablet) 200 mg PO NOW ONE Stop: 07/15/25 12:51 Last Admin: 07/15/25 13:30 Dose: 200 mg Documented By: RB Vital Signs Vital signs: Vital Signs - 8 hr 07/15/25 10:07 07/15/25 10:22 07/15/25 13:49 Temperature 97.8 F 98.3 F Pulse Rate 92 H 76 Respiratory Rate 14 16 Blood Pressure 138/74 138/69 Pulse Oximetry 97 98 Oxygen Delivery Method Room Air Room Air <Milton Mora MD - Last Filed: 07/16/25 08:34> Orders Ordered: Discontinued Medications Ceftriaxone Sodium (Ceftriaxone 1,000 Mg Vial) 500 mg IM NOW ONE Stop: 07/15/25 12:49 Last Admin: 07/15/25 13:17 Dose: 500 mg Documented By: RB Ondansetron HCl (Ondansetron 4 Mg/2 Ml Inj) 4 mg IV NOW PRN PRN Reason: Nausea And Vomiting Ondansetron HCl (Ondansetron 4 Mg Odt) 4 mg PO NOW PRN PRN Reason: Nausea And Vomiting Last Admin: 07/15/25 13:18 Dose: 4 mg Documented By: RB Phenazopyridine HCl (Phenazopyridine 100 Mg Tablet) 200 mg PO NOW ONE Stop: 07/15/25 12:51 Last Admin: 07/15/25 13:30 Dose: 200 mg Documented By: MIGUEL Vital Signs Vital signs: Vital Signs - 8 hr 07/15/25 10:07 07/15/25 10:22 07/15/25 13:49 Temperature 97.8 F 98.3 F Pulse Rate 92 H 76 Respiratory Rate 14 16 Blood Pressure 138/74 138/69 Pulse Oximetry 97 98 Oxygen Delivery Method Room Air Room Air MDM - Female Genitourinary <Alexandria Mark PA-C - Last Filed: 07/15/25 15:21> Medical Records Attestation: I reviewed the patient's medical records. Lab Data Labs: Lab Results 07/15/25 Range/Units 10:15 Ur Bilirubin Confirm Negative (Negative) Urine RBC 1-5/hpf D (0-5/HPF) Urine WBC 10-30/hpf H (0-5/HPF) Ur Squamous Epith Cells 10-30 /hpf H D (0-5/HPF) Urine Bacteria Many (>30) H (None) Ur Culture Indicated? Specimen cultured Vol Urine Centrifuged 10ml (spun) Point of Care Testing Test Results Negative Urine Dip Bedside Urine Glucose Negative Bedside Urine Bilirubin + 1 Bedside Urine Ketone - Negative Urine Specific Bondurant 1.030 Bedside Urine Occult Blood + Bedside Urine pH 6.0 Bedside Urine Protein ++ 100 Bedside Urine Urobilinogen - Negative Bedside Urine Nitrite - Negative Bedside Urine Leukocytes ++ 125 Esterase [facility] Narrative Medical decision making narrative: 24-year-old female with a past medical history of bipolar disorder, GERD, irritable bowel disease, hypertension who presents to the emergency department for concern of UTI x2 days. Differential diagnosis includes but isn't limited to UTI, STD, vaginitis, vulvovaginal candidiasis, etc. On exam patient is in no acute distress, nontoxic appearing, vital signs within normal limits, urinalysis obtained prior to my evaluation and she is actually eager for discharge during initial exam. Patient is concerned for UTI but would also like STD testing, she declines any abnormal vaginal discharge or abdominal pain/pain with intercourse and localizes pain to vulva/urethra during urination. She declines pelvic exam would prefer to self swab which I am agreeable to. Urinalysis obtained in triage reveals WBCs, squamous cells, many bacteria. Given patient's symptoms, we will treat as acute UTI, urine culture was sent. test negative. After shared decision-making with the patient, we will treat with 500 mg IM ceftriaxone in the emergency department for initial treatment of UTI in addition to possible gonorrhea. Sent patient course of Macrobid for UTI to start tomorrow however we also discussed empiric treatment for chlamydia. Because patient we will be taking antibiotics for UTI, she would prefer to hold off on initiating doxycycline at this time until STD results are back. Discussed with the patient that STD results take 2-3 days and she will be called if there are positive results and informed to take doxycycline at that time. Wet prep is negative for Trichomonas. Patient does have few WBCs, occasional clue cells, occasional yeast however she was declining any abnormal discharge that would be consistent with vulvovaginal candidiasis or BV at this time. Discussed rest, hydration, azo, avoiding sexual intercourse until both her and any partners have completed treatment of any positive STDs. Discussed ED return precautions and follow up with the PCP. Patient verbalized understanding of all information is agreeable with the plan, she is eagerly requesting discharge home, she is ambulatory in stable for discharge at this time. <Milton Mora MD - Last Filed: 07/16/25 08:34> Lab Data Labs: Lab Results 07/15/25 Range/Units 10:15 Ur Bilirubin Confirm Negative (Negative) Urine RBC 1-5/hpf D (0-5/HPF) Urine WBC 10-30/hpf H (0-5/HPF) Ur Squamous Epith Cells 10-30 /hpf H D (0-5/HPF) Urine Bacteria Many (>30) H (None) Ur Culture Indicated? Specimen cultured Vol Urine Centrifuged 10ml (spun) Point of Care Testing Test Results Negative Urine Dip Bedside Urine Glucose Negative Bedside Urine Bilirubin + 1 Bedside Urine Ketone - Negative Urine Specific Bondurant 1.030 Bedside Urine Occult Blood + Bedside Urine pH 6.0 Bedside Urine Protein ++ 100 Bedside Urine Urobilinogen - Negative Bedside Urine Nitrite - Negative Bedside Urine Leukocytes ++ 125 Esterase Discharge Plan Departure Patient Disposition: Home Clinical Impression: Screen for sexually transmitted diseases UTI (urinary tract infection) Qualifiers: Urinary tract infection type: site unspecified Hematuria presence: without hematuria Qualified Code(s): N39.0 - Urinary tract infection, site not specified Instructions: DI for Urinary Tract Infection (UTI) Activity Restrictions/Additional Instructions: Dear Ms. Zimmer, Thank you for coming to the emergency department. Today you are being treated for urinary tract infection. STD swabs were sent to the lab but these will take a few days to results. You were treated in the emergency room with an injection of antibiotics to start your treatment of urinary tract infection, however this is also the antibiotic that treats gonorrhea. I have sent a 2nd antibiotic to your pharmacy called doxycycline. This antibiotic is the treatment for chlamydia which is a sexually transmitted infection. You do not need to take this medication, however if you do test positive for chlamydia, then this medication will need to be completed. Please refrain from having sexual intercourse for the next 1-2 weeks until you have completed treatment for any positive STDs and your partners have also completed treatment. Please return to the emergency department if you develop fevers, chills, abdominal pain, abnormal vaginal discharge or any other concerns. Please follow up with your primary care doctor within the next 2-3 days for ER follow-up. (If you do not have a PCP you can call [phone]. ?to schedule an appointment with an [facility] Primary Care Provider) IF YOU DEVELOP ANY NEW OR WORSENING SYMPTOMS, RETURN TO THE ER! Please read the attached instructions, they highlight more specific treatments and interventions for you at home. Thank you for letting me participate in your care, Alexandria Mark PA-C Prescriptions: New nitrofurantoin macrocrystal 100 mg capsule 100 mg PO BID 5 Days Qty: 10 0RF Rx Instructions: must administer with a meal/food doxycycline hyclate 100 mg capsule 100 mg PO BID 7 Days Qty: 14 0RF phenazopyridine 200 mg tablet 200 mg PO TID PRN (Reason: pain) Qty: 6 0RF No Action lidocaine 5 % ointment 1 applic topical BID PRN (Reason: pain) Qty: 30 0RF naratriptan 2.5 mg tablet See Rx Instructions PO .COMPLEX Rx Instructions: take 1 tab at onset of headache; if no relief may repeat 1 tab after at least 4 hrs; max = 2 tabs/24 hrs PO lactulose 10 gram/15 mL solution 10 g PO DAILY Qty: 237 0RF ferrous sulfate [FeroSul] 325 mg (65 mg iron) tablet 325 mg PO DAILY Qty: 30 3RF dexamethasone 0.5 mg/5 mL elixir 0.5 mg PO QID Qty: 237 0RF cefdinir 300 mg capsule 300 mg PO BID Qty: 20 0RF clotrimazole 1 % cream 1 applic topical TID Qty: 45 0RF ketoconazole 2 % shampoo 1 applic topical 3XW Qty: 120 0RF Rx Instructions: use on chest and abdomen melatonin 10 mg tablet 10 mg PO BEDTIME ondansetron 4 mg tablet,disintegrating 4 mg PO Q8H PRN (Reason: nausea) Qty: 30 0RF buspirone 30 mg tablet 30 mg PO BID Qty: 180 3RF quetiapine 200 mg tablet 400 mg PO BEDTIME Qty: 180 3RF propranolol 20 mg tablet 20 mg PO TID Qty: 90 3RF duloxetine 30 mg capsule,delayed release(DR/EC) 30 mg PO BID tizanidine 2 mg tablet PO prazosin 5 mg capsule 10 mg PO BEDTIME Qty: 60 3RF ketoconazole 2 % shampoo 1 applic TOP .2-3XW Qty: 240 3RF Rx Instructions: Apply to scalp 2-3 times weekly for dandruff albuterol sulfate 90 mcg/actuation HFA aerosol inhaler 2 puff inhalation Q4-6H PRN (Reason: shortness of breath or wheezing) Qty: 8.5 0RF (DME) [facility] Spacer See Rx Instructions .Route Qty: 1 0RF Rx Instructions: Use as directed with inhaler meloxicam 15 mg tablet 15 mg PO DAILY Qty: 90 3RF omeprazole 20 mg capsule,delayed release(DR/EC) 20 mg PO BID Qty: 60 3RF Abilify Maintena 400 mg suspension,extended rel recon 400 mg IM Q28D Qty: 1 2RF Rx Instructions: To be injected by nurse at [facility]. pregabalin 225 mg capsule 225 mg PO BID Qty: 60 2RF norethindrone (contraceptive) 0.35 mg tablet 0.35 mg PO DAILY Qty: 84 4RF Referrals: Radha Acevedo MD [Primary Care Provider, Family Practice] Stand Alone Forms: Patient Portal/API ED Sign-out <Milton Mora MD - Last Filed: 07/16/25 08:34> Cosign ED Attending Cosignature Attestation: Physician attestation: I was readily available for consultation at all times. I agree with assessment and plan of care. Milton Moar MD
[2025-07-15] MEDS: ONDANSETRON 4 MG ODT PO (13:18)
[2025-07-15] MEDS: PHENAZOPYRIDINE 100 MG TABLET 200 MG PO (13:30)
[2025-07-15 13:49] VITALS: BP 138/69; PULSE 76; RESP 16; TEMP 36.8; O2SAT 98
== END 2025-07-15 13:50 | disposition home or self-care (01) ==
PROVIDERS: Emergency Medicine; Emergency Provider Physician Assistant; Family Provider Family Medicine; PCP Family Medicine
DX: N39.0 Urinary tract infection, site not specified (principal); Z11.3 Encounter for screening for infections with a predominantly sexual mode of transmission
CPT/HCPCS: 81003; 81015; 81025; 87086; 87210; 87491; 87563; 87591; 96372; 99284; J0696

== ENCOUNTER 2025-07-29 09:00 | Outpatient (RCR) | payer MEDICARE, MEDICAID, SELFPAY ==
[2025-04-19 14:05] VITALS: BMI 31.3
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
--- NOTE | 2025-07-29 09:41 | PT.OTN ---
Current Diagnoses Radiculopathy, lumbar region (07/29/25) Physical Therapy Treatment Note PT OP: Pelvic Health Start: 07/14/25 11:35 Freq: Status: Active Protocol: Document 07/29/25 09:08 [facility] (Rec: 07/29/25 09:40 [facility] [id number]) Out-Patient Physical Therapy Visit Information Visit Information Visit Type Treatment Note Visit Start Time 09:05 Visit Stop Time 09:35 Visit Number 2 OP-PT Subjective Patient Comments Patient Comments pt had a UTI last week and she has finished the course of antibiotics but she is noticing bleeding and some clotting with voiding. She has a MD appt tomorrow She has not worked with the dilator yet due to these symptoms Therapeutic Exercises Other Exercises cat cow Reps/Minutes x 10 reps Comments pt demonstrates very limited pelvic mobility Manual Therapy Treatment Soft Tissue Mobilization adductor release bilaterally Mobilization Type Myofascial Release Comments Right greater than left adductor tightness and guarding Manual Techniques manual hip ROM and stretches for hamstrings and adducotrs Body Location B hips Comments worked B for hip ROM into flexion, ER, and abduction and stretching into the hamstrings and adductors Physical Therapy Assessment Goals 3 Impairment poor hamstring length at 40deg and adductor guarding B Short Term Goal (STG Brunilda is given a home stretching program for her hips ) STG Duration 4 weeks [employer] Goal (LTG) Brunilda is able to increase hamstring length by 10 degrees or better LTG Duration 8 weeks 2 Impairment LBP that becomes worse with walking and standing pain is 8/10 [employer] Goal (LTG) Brunilda reports a overall reduction of LBP from 8/10- 3-4/ 10 and has pain management strategies for home to help decrease her pain LTG Duration 8 weeks 1 Impairment dyspareunia with pelvic floor guarding and tension Short Term Goal (STG Brunilda is able to progress from a small dilator to medium/ ) large dilator and is instructed in stretches for the hips to help relax the pelvic floor STG Duration 4 weeks [employer] Goal (LTG) Brunilda reports a overall reduction in pelvic floor guarding and tension LTG Duration 8 weeks Assessment Summary Assessment Brunilda presented today with c/o blood clots in her urine and a UTI that has been treated but has not resolved. when I had her laying on back for stretches she was having a difficult time breathing. Treatment was cut short and I advised her to go to the ER or walk in clinic. She does have a MD appt tomorrow however I advised her she should be seen today. Physical Therapy Plan Frequency and Duration Frequency of 1x/Week Treatment Duration of 8 treatment (weeks) Plan of Care Start 07/14/25 Date Plan of Care End 09/08/25 Date Next Visit Focus/Plan Next Note Type Treatment Note Next Visit Plan review dilator use, review stretches and diaphragmatic breathing, begin EMG biofeedback for relaxed awareness of the pelvic floor
--- NOTE | 2025-11-10 08:38 | PT.OPDS ---
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, [address] Email: [email or web address] Visit Number Visit Number 2 Discharge Summary PT OP: Pelvic Health Start: 07/14/25 11:35 Freq: Status: Active Protocol: Document 11/10/25 08:35 [facility] (Rec: 11/10/25 08:38 [facility] [id number]) OP-PT Subjective Patient Comments Patient Comments At time of last visit on 07/29/25 Brunilda reports she had a UTI last week and she has finished the course of antibiotics but she is noticing bleeding and some clotting with voiding. She has a MD appt tomorrow She has not worked with the dilator yet due to these symptoms Physical Therapy Assessment Goals 3 Impairment poor hamstring length at 40deg and adductor guarding B Short Term Goal (STG Brunilda is given a home stretching program for her hips ) STG Duration 4 weeks Snf Goal (LTG) Brunilda is able to increase hamstring length by 10 degrees or better LTG Duration 8 weeks 2 Impairment LBP that becomes worse with walking and standing pain is 8/10 Test Preparer Goal (LTG) Brunilda reports a overall reduction of LBP from 8/10- 3-4/ 10 and has pain management strategies for home to help decrease her pain LTG Duration 8 weeks 1 Impairment dyspareunia with pelvic floor guarding and tension Short Term Goal (STG Brunilda is able to progress from a small dilator to medium/ ) large dilator and is instructed in stretches for the hips to help relax the pelvic floor STG Duration 4 weeks Test Preparer Goal (LTG) Brunilda reports a overall reduction in pelvic floor guarding and tension LTG Duration 8 weeks Assessment Summary Assessment At the time of her last visit on 07/29/25 Brunilda presented with c/o blood clots in her urine and a UTI that has been treated but has not resolved. when I had her laying on back for stretches she was having a difficult time breathing. Treatment was cut short and I advised her to go to the ER or walk in clinic. She did have a MD appt the next day however I advised her she should be seen the same day of able. At this time she is cx her appts as she is out of time for a unknown time. She will be DC from PT at this time Physical Therapy Plan Next Visit Focus/Plan Next Note Type Discharge Summary Next Visit Plan Pt is unable to make PT appointments due to being out of town for a unknown amount of time
== END 2025-11-10 10:57 | disposition home or self-care (01) ==
LOC: PHYS 09:00
PROVIDERS: Family Provider Family Medicine; PCP Family Medicine; Referring Provider Family Medicine; Visit Provider Family Medicine
DX: M54.16 Radiculopathy, lumbar region (principal)
CPT/HCPCS: 97110; 97140; 97162; 97535

== ENCOUNTER → 2025-07-30 11:30 | Outpatient (CLI) | payer MEDICARE, MEDICAID, SELFPAY ==
[2025-04-19 14:05] VITALS: BMI 31.3
== END ==
LOC: LAB 11:32
PROVIDERS: PCP Family Medicine; Visit Provider Family Medicine
DX: J02.9 Acute pharyngitis, unspecified (principal)
CPT/HCPCS: 87081

== ENCOUNTER → 2025-10-28 16:44 | Outpatient (CLI) | payer MEDICARE, MEDICAID, SELFPAY ==
[2025-04-19 14:05] VITALS: BMI 31.3
== END ==
PROVIDERS: PCP Family Medicine; Referring Provider Psychiatry & Neurology Psychiatry; Visit Provider Psychiatry & Neurology Psychiatry
DX: N64.3 Galactorrhea not associated with childbirth (principal); E22.1 Hyperprolactinemia
CPT/HCPCS: 36415; 84146

== ENCOUNTER 2025-11-09 13:28 | Outpatient (CLI) | payer MEDICARE, MEDICAID, SELFPAY ==
[2025-04-19 14:05] VITALS: BMI 31.3
[2025-11-09] VITALS (9 sets, daily range): BP systolic 136–168; BP diastolic 82–97; PULSE 89–107; RESP 14–20; TEMP 36.8; O2SAT 99–100
[2025-11-09] MEDS: MIDAZOLAM 2 MG/2 ML VIAL IV ×2 (13:57→14:03)
[2025-11-09] MEDS: LIDOCAINE 1% 20 ML 5 ML INJ (14:01)
--- NOTE | 2025-11-09 14:23 | P.PCN_ITS ---
Date/Time/Diagnoses Date of procedure: 11/09/25 Time of procedure: 14:23 Pre-procedure diagnosis: 1. FACET ARTHROPATHY Post-procedure diagnosis: same Procedure Notes Procedure: 1. BILATERAL- L4, L5 and S1 DIAGNOSTIC MB BLOCKS with LA Anesthetic Indications: Ruth is referred by Dr. Acevedo for treatment of Bilateral Axial LBP. Physician: Joe English Total Fluoroscopy time (seconds): 20 Total sedation minutes: 21 Complications: none Procedure in detail & Post-procedure care: DESCRIPTION OF PROCEDURE Fluoroscopically guided, contrast-controlled bilateral L4, L5 and S1 medial branch blocks with 0.5cc of 0.5% Marcaine. Following review of allergy and review of potential side effects and complications, including, but not necessarily limited to, infection, allergic reaction, local tissue breakdown, nerve injury, paralysis, stroke and possible , the patient indicated that the patient understood and agreed to proceed. An informed consent document was signed by the patient, witnessed by a nurse, and placed in the patient's chart. After review of previous anaesthesic history and IV conscious sedation the patient was deemed safe to proceed with today's procedure with IV conscious sed ation as ASA class II designation. Safety time-out was performed to confirm patient ID, procedure to be performed and site of procedure. IV sedation was accomplished with a combination of 4mg of Versed was administered by the RN after DO order, titrated to patient comfort during the course of the procedure while the patient remained responsive to all verbal commands In the prone position, following sterile prep and drape of the lumbar region, the right L4, L5 and S1 anatomical location of the medial branch of the dorsal ramus was identified fluoroscopically. Subsequently an anesthetic skin wheal using 1% lidocaine solution was initiated at each of the anatomical spots. Subsequently then a 22-gauge 3.5-inch spinal needle was atraumatically introduced and advanced under fluoroscopic guidance at each of the corresponding sites at the right L4, L5 and S1 MB. After negative aspiration, 0.2cc of Isovue 200 was injected, confirming placement without vascular or intrathecal uptake. Subsequently then 0.5cc of 0.5% Marcaine solution was injected at each of the corresponding sites at the right L4, L5 and S1 medial branch locations. The identical procedure was replicated on the left. The patient tolerated the procedure well without signs or symptoms of complications prior to transfer to the recovery area continued monitoring without incident. Post-procedure, the patient was monitored initiating provocative activities to measure the amount of relief from block of the facetogenic pain. The patient reported a VAS of 7 prior to the procedure and a post-procedure VAS of 1. It has been a pleasure to assist in the diagnostic and therapeutic care of your patient. POST OP INSTRUCTIONS The patient was provided with a Pain Log to complete over the next several hours and subsequent days prior to the patient's follow up with the ordering physician. If the patient has pharmacy technician relief to the solution applied, then they may be a candidate for medial branch rhizotomy. The patient is aware, was provided, once again, with a Pain Log and will follow up with the referring physician for review and clinical correlation
== END 2025-11-09 15:40 | disposition home or self-care (01) ==
PROVIDERS: PCP Family Medicine; Referring Provider Physical Medicine & Rehabilitation; Visit Provider Physical Medicine & Rehabilitation
DX: M47.816 Spondylosis without myelopathy or radiculopathy, lumbar region (principal); M47.817 Spondylosis without myelopathy or radiculopathy, lumbosacral region
CPT/HCPCS: 64493; 64494; 99152; J2250